=== PATIENT | male | born 1945 | race Caucasian/White ===

== ENCOUNTER 2017-04-16 19:35 | Inpatient (IN) ==
[2017-04-16] MEDS ORDERED: 0.9 % Sodium Chloride 1,000 ML IVC ONE ×2 (19:53→20:53)
--- NOTE | 2017-04-16 19:54 | Emergency Department Note ---
Disposition Clinical Impression: Neutropenic fever, Elevated lactic acid level, Hypomagnesemia Pneumonia Qualifiers: Pneumonia type: due to unspecified organism Laterality: right Lung location: unspecified part of lung Qualified Code(s): J18.9 - Pneumonia, unspecified organism Disposition: Admitted As Inpatient Condition: Fair Fever HPI - General Chief Complaint: ED Fever Stated Complaint: fever on chemo Time Seen by Provider: 04/16/17 19:46 Source: patient, family Limitations: no limitations Nursing Notes Reviewed: Yes Vital Signs Reviewed: Yes - History of Present Illness HPI Narrative: Patient presents today for evaluation of fever. Fever started at 3:00 this afternoon. Fever was 103 at home. Patient has leukemia and is on chemotherapy. Last chemotherapy was March 25. Scheduled chemotherapy is for April 25. The patient states that he had fever associated chills and shaking. The patient has not had any other symptoms point towards source of infection. Patient did have a CAT scan 3 weeks ago and was diagnosed with pneumonia. Patient was placed on amoxicillin by his oncologist in completed the course of treatment. Patient has not had URI symptoms, cough, chest pain, abdominal pain, change in bowel movements or burning with urination. - Related Data Home Medications Medication Instructions Recorded Confirmed Aspirin 81 mg PO DAILY 09/24/15 04/17/17 Lisinopril [Zestril] 5 mg PO DAILY 09/24/15 04/17/17 Oxazepam [Serax] 15 mg PO TID PRN 09/24/15 04/17/17 Triamterene/HCTZ 37.5/25mg 1 each PO DAILY 09/24/15 04/17/17 [Dyazide] Amiodarone HCl [Pacerone] 200 mg PO DAILY 10/25/16 04/17/17 Atenolol [Tenormin] 25 mg PO DAILY 01/27/17 04/17/17 Cholecalciferol (Vitamin D3) 2,000 unit PO DAILY 04/16/17 04/17/17 [Vitamin D] Potassium Chloride Elixir 20 meq PO DAILY 04/16/17 04/17/17 [Potassium Chloride] Fluticasone Propionate Nasal 50 mcg NS BID 04/17/17 04/17/17 [Flonase] Mineral Oil/Petrolatum,White 1 appl OP HS PRN 04/17/17 04/17/17 [Refresh P.m. Ointment] Polyvinyl Alcohol [Artificial 1 drop OP QID PRN 04/17/17 04/17/17 Tears] Previous Rx's Medication Instructions Recorded Loratadine [Claritin] 10 mg PO DAILY #30 tablet 03/16/17 Allergies Allergy/AdvReac Type Severity Reaction Status Date / Time No Known Allergies Allergy Verified 01/21/16 08:25 Review of Systems: CONSTITUTIONAL: Fever and chills No weight loss, chills, weakness or fatigue. HEENT: Eyes: No visual changes. Ears, Nose, Throat: No hearing loss, difficulty talking or unable to swallow. SKIN: No rash or itching. CARDIOVASCULAR: No chest pain, chest pressure or chest discomfort. No palpitations or edema. RESPIRATORY: No shortness of breath, cough or sputum. GASTROINTESTINAL: No anorexia, nausea, vomiting or diarrhea. No abdominal pain or blood. GENITOURINARY: No burning on urination or hematuria. NEUROLOGICAL: No headache, dizziness, syncope, paralysis, ataxia, numbness or tingling in the extremities. No change in bowel or bladder control. MUSCULOSKELETAL: No muscle pain, back pain, joint pain or stiffness. Fever PMH - Past Medical History Medical history: Reports: hypertension, other - Social History Smoking Status: Never smoker Alcohol use: Reports: none Drug use: Reports: none Physical Exam General appearance: NAD, conversant Eyes: anicteric sclerae, moist conjunctivae; PERRL HENT: Atraumatic; oropharynx clear with moist mucous membranes and no mucosal ulcerations Neck: Normal inspection; Trachea midline; FROM, supple Lungs: CTA, with normal respiratory effort and no intercostal retractions CV: RRR, no MRGs Abdomen: Soft, non-tender; no rebound or gaurding Extremities: No peripheral edema or extremity lymphadenopathy Skin: Normal temperature; no rash, ulcers or lesions Psych: Appropriate mood and affect Neuro: alert and oriented to person, place and time - General Limitations: no limitations General appearance: alert, in no apparent distress Course - Reevaluation(s) Reevaluation #1: Patient with evidence of pneumonia. Neutropenia. Elevated lactate. Hypo- magnesium. Cefepime given. Will admit for further management. - Consultations Consultation #1: Discussed with Dr. Moise. Patient accepted for admission. Requests addition of vancomycin and magnesium replacement. Vital Signs Temperature 99.4 F 04/16/17 19:36 Pulse Rate 119 04/16/17 19:36 Respiratory Rate 20 04/16/17 19:36 Blood Pressure 118/75 04/16/17 19:36 O2 Sat by Pulse Oximetry 96 04/16/17 19:36 Temperature 101 F H 04/17/17 18:39 Pulse Rate 67 04/17/17 18:39 Respiratory Rate 16 04/17/17 18:39 Blood Pressure 144/73 04/17/17 18:39 O2 Sat by Pulse Oximetry 98 04/17/17 18:39 Oxygen Delivery Oxygen Delivery Room Air Fever - Medical Records Medical records reviewed: Yes I reviewed the patient's medical records. - Lab Data Lab results reviewed: Yes I reviewed the patient's lab results. Result diagrams: 04/17/17 08:35 04/17/17 08:10 Lab Results 04/16/17 04/16/17 04/16/17 Range/Units 19:53 19:58 20:05 WBC 0.5 L* D (4.3-11.1) K/mcL RBC 3.02 L (4.19-5.50) M/mcL Hgb 11.4 L (12.9-16.9) g/dL Hct 32.7 L (37.5-50.1) % MCV 108.3 H (83.0-100.0) fL MCH 37.7 H (28.0-33.3) pg MCHC 34.9 (31.6-35.5) g/dL RDW 15.9 H (11.5-14.5) % Plt Count 130 L (140-400) K/mcL MPV 9.4 (9.4-12.4) fL Immature Gran % 0.0 (0-4) % Seg Neutrophils % 32.0 % Lymphocytes % 58.0 % Monocytes % 8.0 % Eosinophils % 0.0 % Basophils % 2.0 % Neutrophils # 0.2 L (1.6-8.9) K/mcL Lymphocytes # 0.3 L (0.6-4.6) K/mcL Monocytes # 0.0 (0.0-1.3) K/mcL Eosinophils # 0.0 (0.0-0.6) K/mcL Basophils # 0.0 (0.0-0.2) K/mcL Reactive Lymphocytes Present A (Not Present) Platelet Estimate Slight Decrease L (Normal) Immature Plt Fraction (1.1-6.1) % Polychromasia 2+ A (Not Present) Macrocytosis Present A (Not Present) PT (9.4-12.1) Seconds INR APTT (26.0-36.0) Seconds Sodium (136-145) mEq/L Potassium (3.5-5.1) mEq/L Chloride (98-107) mEq/L Carbon Dioxide (23-29) mEq/L BUN (8-23) mg/dL Creatinine (0.70-1.30) mg/dL Est GFR ( Amer) (> 60) Est GFR (Non-Af Amer) (> 60) BUN/Creatinine Ratio (6-26) Glucose (70-105) mg/dL Calculated Osmolality (280-300) Lactic Acid (0.5-2.2) mmol/L Calcium (8.6-10.3) mg/dL Phosphorus (2.7-4.5) mg/dL Magnesium (1.6-2.6) mg/dL Total Bilirubin (0.3-1.0) mg/dL Direct Bilirubin (0.0-0.2) mg/dL Indirect Bilirubin (0.0-1.2) mg/dL AST (13-39) Units/L ALT (7-52) Units/L Alkaline Phosphatase (34-104) Units/L Troponin I 0.05 H* (< 0.04) ng/mL Serum Total Protein (6.4-8.9) g/dL Albumin (3.5-5.7) g/dL Globulin (2.4-3.5) g/dL Albumin/Globulin Ratio (1.1-2.2) Urine Color Yellow (Yellow) Urine Clarity Clear (Clear) Urine pH 6.0 (5.0-8.0) pH Units Ur Specific [place] 1.016 (1.010-1.025) Urine Protein Negative (Neg-Trace) mg/dL Urine Glucose (UA) Normal (Normal) mg/dL Urine Ketones Negative (Negative) mg/dL Urine Blood Negative (Negative) Urine Nitrite Negative (Negative) Urine Bilirubin Negative (Negative) Urine Urobilinogen Normal (Normal) mg/dL Ur Leukocyte Esterase Negative (Negative) Ur Culture Indicated? NO (NO) Chlamy pneumoniae PCR (Not Detect) Adenovirus (PCR) (Not Detect) B. pertussis DNA (PCR) (Not Detect) B.parapertussis DNA PCR (Not Detect) Coronavirus OC43 (PCR) (Not Detect) Coronavirus HKU1 (PCR) (Not Detect) Coronavirus 229E (PCR) (Not Detect) Coronavirus NL63 (PCR) (Not Detect) Human Metapneumovir PCR (Not Detect) Influenza A (H1) PCR (Not Detect) Influ A (H1N1/09) PCR (Not Detect) Influenza A (H3) PCR (Not Detect) Influenza A Untype (PCR) (Not Detect) Influenza Type B (PCR) (Not Detect) M.pneumoniae DNA (PCR) (Not Detect) Parainfluenza 1 (PCR) (Not Detect) Parainfluenza 2 (PCR) (Not Detect) Parainfluenza 3 (PCR) (Not Detect) Parainfluenza 4 (PCR) (Not Detect) RSV (PCR) (Not Detect) Entero/Rhino (PCR) (Not Detect) 04/16/17 04/16/17 04/16/17 Range/Units 20:05 20:05 20:05 WBC (4.3-11.1) K/mcL RBC (4.19-5.50) M/mcL Hgb (12.9-16.9) g/dL Hct (37.5-50.1) % MCV (83.0-100.0) fL MCH (28.0-33.3) pg MCHC (31.6-35.5) g/dL RDW (11.5-14.5) % Plt Count (140-400) K/mcL MPV (9.4-12.4) fL Immature Gran % (0-4) % Seg Neutrophils % % Lymphocytes % % Monocytes % % Eosinophils % % Basophils % % Neutrophils # (1.6-8.9) K/mcL Lymphocytes # (0.6-4.6) K/mcL Monocytes # (0.0-1.3) K/mcL Eosinophils # (0.0-0.6) K/mcL Basophils # (0.0-0.2) K/mcL Reactive Lymphocytes (Not Present) Platelet Estimate (Normal) Immature Plt Fraction (1.1-6.1) % Polychromasia (Not Present) Macrocytosis (Not Present) PT 12.0 (9.4-12.1) Seconds INR 1.1 APTT 29.0 (26.0-36.0) Seconds Sodium 131 L (136-145) mEq/L Potassium 3.8 (3.5-5.1) mEq/L Chloride 97 L (98-107) mEq/L Carbon Dioxide 23 (23-29) mEq/L BUN 16 (8-23) mg/dL Creatinine 0.92 (0.70-1.30) mg/dL Est GFR ( Amer) > 60 (> 60) Est GFR (Non-Af Amer) > 60 (> 60) BUN/Creatinine Ratio 17 (6-26) Glucose 219 H (70-105) mg/dL Calculated Osmolality 280 (280-300) Lactic Acid 3.3 H (0.5-2.2) mmol/L Calcium 9.0 (8.6-10.3) mg/dL Phosphorus 1.6 L (2.7-4.5) mg/dL Magnesium 1.2 L (1.6-2.6) mg/dL Total Bilirubin 0.5 (0.3-1.0) mg/dL Direct Bilirubin 0.1 (0.0-0.2) mg/dL Indirect Bilirubin 0.4 (0.0-1.2) mg/dL AST 24 (13-39) Units/L ALT 25 (7-52) Units/L Alkaline Phosphatase 87 (34-104) Units/L Troponin I (< 0.04) ng/mL Serum Total Protein 7.1 (6.4-8.9) g/dL Albumin 3.9 (3.5-5.7) g/dL Globulin 3.2 (2.4-3.5) g/dL Albumin/Globulin Ratio 1.2 (1.1-2.2) Urine Color (Yellow) Urine Clarity (Clear) Urine pH (5.0-8.0) pH Units Ur Specific [place] (1.010-1.025) Urine Protein (Neg-Trace) mg/dL Urine Glucose (UA) (Normal) mg/dL Urine Ketones (Negative) mg/dL Urine Blood (Negative) Urine Nitrite (Negative) Urine Bilirubin (Negative) Urine Urobilinogen (Normal) mg/dL Ur Leukocyte Esterase (Negative) Ur Culture Indicated? (NO) Chlamy pneumoniae PCR (Not Detect) Adenovirus (PCR) (Not Detect) B. pertussis DNA (PCR) (Not Detect) B.parapertussis DNA PCR (Not Detect) Coronavirus OC43 (PCR) (Not Detect) Coronavirus HKU1 (PCR) (Not Detect) Coronavirus 229E (PCR) (Not Detect) Coronavirus NL63 (PCR) (Not Detect) Human Metapneumovir PCR (Not Detect) Influenza A (H1) PCR (Not Detect) Influ A (H1N1/09) PCR (Not Detect) Influenza A (H3) PCR (Not Detect) Influenza A Untype (PCR) (Not Detect) Influenza Type B (PCR) (Not Detect) M.pneumoniae DNA (PCR) (Not Detect) Parainfluenza 1 (PCR) (Not Detect) Parainfluenza 2 (PCR) (Not Detect) Parainfluenza 3 (PCR) (Not Detect) Parainfluenza 4 (PCR) (Not Detect) RSV (PCR) (Not Detect) Entero/Rhino (PCR) (Not Detect) 04/17/17 04/17/17 04/17/17 Range/Units 00:39 01:15 08:10 WBC (4.3-11.1) K/mcL RBC (4.19-5.50) M/mcL Hgb (12.9-16.9) g/dL Hct (37.5-50.1) % MCV (83.0-100.0) fL MCH (28.0-33.3) pg MCHC (31.6-35.5) g/dL RDW (11.5-14.5) % Plt Count (140-400) K/mcL MPV (9.4-12.4) fL Immature Gran % (0-4) % Seg Neutrophils % % Lymphocytes % % Monocytes % % Eosinophils % % Basophils % % Neutrophils # (1.6-8.9) K/mcL Lymphocytes # (0.6-4.6) K/mcL Monocytes # (0.0-1.3) K/mcL Eosinophils # (0.0-0.6) K/mcL Basophils # (0.0-0.2) K/mcL Reactive Lymphocytes (Not Present) Platelet Estimate (Normal) Immature Plt Fraction (1.1-6.1) % Polychromasia (Not Present) Macrocytosis (Not Present) PT (9.4-12.1) Seconds INR APTT (26.0-36.0) Seconds Sodium 134 L (136-145) mEq/L Potassium 3.2 L (3.5-5.1) mEq/L Chloride 105 (98-107) mEq/L Carbon Dioxide 21 L (23-29) mEq/L BUN 14 (8-23) mg/dL Creatinine 0.73 (0.70-1.30) mg/dL Est GFR ( Amer) > 60 (> 60) Est GFR (Non-Af Amer) > 60 (> 60) BUN/Creatinine Ratio 19 (6-26) Glucose 129 H (70-105) mg/dL Calculated Osmolality 280 (280-300) Lactic Acid 4.8 H* (0.5-2.2) mmol/L Calcium 8.1 L (8.6-10.3) mg/dL Phosphorus (2.7-4.5) mg/dL Magnesium 1.9 (1.6-2.6) mg/dL Total Bilirubin (0.3-1.0) mg/dL Direct Bilirubin (0.0-0.2) mg/dL Indirect Bilirubin (0.0-1.2) mg/dL AST (13-39) Units/L ALT (7-52) Units/L Alkaline Phosphatase (34-104) Units/L Troponin I (< 0.04) ng/mL Serum Total Protein (6.4-8.9) g/dL Albumin (3.5-5.7) g/dL Globulin (2.4-3.5) g/dL Albumin/Globulin Ratio (1.1-2.2) Urine Color (Yellow) Urine Clarity (Clear) Urine pH (5.0-8.0) pH Units Ur Specific [place] (1.010-1.025) Urine Protein (Neg-Trace) mg/dL Urine Glucose (UA) (Normal) mg/dL Urine Ketones (Negative) mg/dL Urine Blood (Negative) Urine Nitrite (Negative) Urine Bilirubin (Negative) Urine Urobilinogen (Normal) mg/dL Ur Leukocyte Esterase (Negative) Ur Culture Indicated? (NO) Chlamy pneumoniae PCR Not Detected (Not Detect) Adenovirus (PCR) Not Detected (Not Detect) B. pertussis DNA (PCR) Not Detected (Not Detect) B.parapertussis DNA PCR Not Detected (Not Detect) Coronavirus OC43 (PCR) Not Detected (Not Detect) Coronavirus HKU1 (PCR) Not Detected (Not Detect) Coronavirus 229E (PCR) Not Detected (Not Detect) Coronavirus NL63 (PCR) Not Detected (Not Detect) Human Metapneumovir PCR Not Detected (Not Detect) Influenza A (H1) PCR Not Detected (Not Detect) Influ A (H1N1/09) PCR Not Detected (Not Detect) Influenza A (H3) PCR Not Detected (Not Detect) Influenza A Untype (PCR) Not Detected (Not Detect) Influenza Type B (PCR) Not Detected (Not Detect) M.pneumoniae DNA (PCR) Not Detected (Not Detect) Parainfluenza 1 (PCR) Not Detected (Not Detect) Parainfluenza 2 (PCR) Not Detected (Not Detect) Parainfluenza 3 (PCR) Not Detected (Not Detect) Parainfluenza 4 (PCR) Not Detected (Not Detect) RSV (PCR) Not Detected (Not Detect) Entero/Rhino (PCR) Not Detected (Not Detect) 04/17/17 04/17/17 04/17/17 Range/Units 08:10 08:10 08:35 WBC 0.8 L* D (4.3-11.1) K/mcL RBC 2.69 L (4.19-5.50) M/mcL Hgb 10.2 L (12.9-16.9) g/dL Hct 29.1 L (37.5-50.1) % MCV 108.2 H (83.0-100.0) fL MCH 37.9 H (28.0-33.3) pg MCHC 35.1 (31.6-35.5) g/dL RDW 16.0 H (11.5-14.5) % Plt Count 143 (140-400) K/mcL MPV 9.8 (9.4-12.4) fL Immature Gran % 0.0 (0-4) % Seg Neutrophils % 21.4 % Lymphocytes % 75.0 % Monocytes % 3.6 % Eosinophils % 0.0 % Basophils % 0.0 % Neutrophils # 0.2 L (1.6-8.9) K/mcL Lymphocytes # 0.6 (0.6-4.6) K/mcL Monocytes # 0.0 (0.0-1.3) K/mcL Eosinophils # 0.0 (0.0-0.6) K/mcL Basophils # 0.0 (0.0-0.2) K/mcL Reactive Lymphocytes (Not Present) Platelet Estimate Normal (Normal) Immature Plt Fraction 3.0 (1.1-6.1) % Polychromasia (Not Present) Macrocytosis (Not Present) PT (9.4-12.1) Seconds INR APTT (26.0-36.0) Seconds Sodium (136-145) mEq/L Potassium (3.5-5.1) mEq/L Chloride (98-107) mEq/L Carbon Dioxide (23-29) mEq/L BUN (8-23) mg/dL Creatinine (0.70-1.30) mg/dL Est GFR ( Amer) (> 60) Est GFR (Non-Af Amer) (> 60) BUN/Creatinine Ratio (6-26) Glucose (70-105) mg/dL Calculated Osmolality (280-300) Lactic Acid 2.6 H (0.5-2.2) mmol/L Calcium (8.6-10.3) mg/dL Phosphorus (2.7-4.5) mg/dL Magnesium (1.6-2.6) mg/dL Total Bilirubin (0.3-1.0) mg/dL Direct Bilirubin (0.0-0.2) mg/dL Indirect Bilirubin (0.0-1.2) mg/dL AST (13-39) Units/L ALT (7-52) Units/L Alkaline Phosphatase (34-104) Units/L Troponin I 0.20 H* (< 0.04) ng/mL Serum Total Protein (6.4-8.9) g/dL Albumin (3.5-5.7) g/dL Globulin (2.4-3.5) g/dL Albumin/Globulin Ratio (1.1-2.2) Urine Color (Yellow) Urine Clarity (Clear) Urine pH (5.0-8.0) pH Units Ur Specific [place] (1.010-1.025) Urine Protein (Neg-Trace) mg/dL Urine Glucose (UA) (Normal) mg/dL Urine Ketones (Negative) mg/dL Urine Blood (Negative) Urine Nitrite (Negative) Urine Bilirubin (Negative) Urine Urobilinogen (Normal) mg/dL Ur Leukocyte Esterase (Negative) Ur Culture Indicated? (NO) Chlamy pneumoniae PCR (Not Detect) Adenovirus (PCR) (Not Detect) B. pertussis DNA (PCR) (Not Detect) B.parapertussis DNA PCR (Not Detect) Coronavirus OC43 (PCR) (Not Detect) Coronavirus HKU1 (PCR) (Not Detect) Coronavirus 229E (PCR) (Not Detect) Coronavirus NL63 (PCR) (Not Detect) Human Metapneumovir PCR (Not Detect) Influenza A (H1) PCR (Not Detect) Influ A (H1N1/09) PCR (Not Detect) Influenza A (H3) PCR (Not Detect) Influenza A Untype (PCR) (Not Detect) Influenza Type B (PCR) (Not Detect) M.pneumoniae DNA (PCR) (Not Detect) Parainfluenza 1 (PCR) (Not Detect) Parainfluenza 2 (PCR) (Not Detect) Parainfluenza 3 (PCR) (Not Detect) Parainfluenza 4 (PCR) (Not Detect) RSV (PCR) (Not Detect) Entero/Rhino (PCR) (Not Detect) - Radiology Data Radiology results reviewed: Yes I reviewed the patient's radiology results. - EKG Data EKG attestation: Yes I reviewed and interpreted this EKG. EKG results narrative: EKG shows ventricularly paced. Ventricular rate of 105. QRS 154. QTC 438. Inferior T-wave changes. Does not meet [place] criteria. No previous EKG for comparison. Attestation Statement - Attestation Attestation: I examined this patient and my medical decision-making was reviewed with the Resident Physician. I agree with the documented findings, disposition and treatment plan as described except to the extent set forth below. Findings consistent with pneumonia while on chemotherapy. Will start antibiotics, foster cultures, disposition is admission.
[2017-04-16 20:03] LABS: Bilirubin,Urine Negative (Negative); Blood,Urine Negative (Negative); Clarity,Urine Clear (Clear); Color,Urine Yellow (Yellow); Glucose,Urine (UA) Normal (Normal); Ketones,Urine Negative (Negative); Leukocyte Esterase,Urine Negative (Negative); Nitrite,Urine Negative (Negative); Protein,Urine Negative (Neg-Trace); Specific Gravity,Urine 1.016 (1.010-1.025); Urobilinogen,Urine Normal (Normal)
[2017-04-16 20:16] LABS: Hematocrit 32.7 % (37.5-50.1); Mean Platelet Volume 9.4 fL (9.4-12.4)
[2017-04-16 20:18] LABS: Hemoglobin 11.4 g/dL (12.9-16.9); Lymphocytes # 0.3 K/mcL (0.6-4.6); Mean Corpuscular HGB Conc 34.9 g/dL (31.6-35.5); Mean Corpuscular Hemoglobin 37.7 pg (28.0-33.3); Mean Corpuscular Volume 108.3 fL (83.0-100.0); Neutrophils # 0.2 K/mcL (1.6-8.9); Platelet Count 130 K/mcL (140-400); Red Blood Count 3.02 M/mcL (4.19-5.50); Red Cell Distribution Width 15.9 % (11.5-14.5)
[2017-04-16 20:21] LABS: INR 1.1
[2017-04-16 20:39] LABS: Alanine Aminotransferase 25 Units/L (7-52); Albumin 3.9 g/dL (3.5-5.7); Albumin/Globulin Ratio 1.2 (1.1-2.2); Alkaline Phosphatase 87 Units/L (34-104); Aspartate Amino Transferase 24 Units/L (13-39); BUN/Creatinine Ratio 17 (6-26); Bilirubin,Direct 0.1 mg/dL (0.0-0.2); Bilirubin,Indirect 0.4 mg/dL (0.0-1.2); Bilirubin,Total 0.5 mg/dL (0.3-1.0); Blood Urea Nitrogen 16 mg/dL (8-23); Carbon Dioxide 23 mEq/L (23-29); Chloride 97 mEq/L (98-107); Globulin 3.2 g/dL (2.4-3.5); Glucose 219 mg/dL (70-105); Magnesium 1.2 mg/dL (1.6-2.6); Osmolality,Calculated 280 (280-300); Phosphorous 1.6 mg/dL (2.7-4.5); Potassium 3.8 mEq/L (3.5-5.1); Sodium 131 mEq/L (136-145); Total Protein 7.1 g/dL (6.4-8.9); eGFR For African Americans > 60 (> 60); eGFR For Non-African Americans > 60 (> 60)
[2017-04-16 20:48] LABS: Platelet Estimate Slight Decrease (Normal); Polychromasia 2+ (Not Present); Reactive Lymphocytes Present (Not Present)
[2017-04-16 20:49] LABS: Macrocytosis Present (Not Present)
[2017-04-16] MEDS ORDERED: Aspirin 81 MG TAB.CHEW PO STA (20:51)
[2017-04-16] MEDS ORDERED: Cefepime HCl 2,000 MG in D5% in Water (Mini-Bag+) 100 ML IVPB ONE (20:52)
[2017-04-16] MEDS ORDERED: Vancomycin 1,000 MG in D5% in Water 250 ML IVPB STA (21:45)
[2017-04-16] MEDS ORDERED: Cefepime HCl 2,000 MG in Water for inj. (sterile) 20 ML 20 ML IVP ONE (22:00)
[2017-04-16] MEDS ORDERED: Naloxone 0.4 MG/ML INJ IVP PRN (23:02)
--- NOTE | 2017-04-16 23:13 | Internal Med History&Physical ---
Date of Encounter: 04/16/17 Time of Encounter: 23:10 Assessment and Plan (1) Neutropenic fever Current visit: Yes Status: Acute supportive coverage with cefepime for gram negative Also on vanco IV, check level IVF (2) Pneumonia Current visit: Yes Status: Acute cefepime, vanco pneumoccocal ag in the ED wnl IVF trend lactate Qualifiers: Pneumonia type: due to unspecified organism Laterality: right Lung location: unspecified part of lung Qualified Code(s): J18.9 - Pneumonia, unspecified organism (3) AML (acute myeloid leukemia) Current visit: Yes Status: Acute on palliative dacogen consult onc Qualifiers: Leukemia Active/Remission status: without remission Qualified Code(s): C92.00 - Acute myeloblastic leukemia, not having achieved remission (4) Atrial fibrillation Current visit: Yes Status: Acute V-paced on amiodarone Qualifiers: Atrial fibrillation type: permanent Qualified Code(s): I48.2 - Chronic atrial fibrillation Internal Medicine - H&P: HPI Chief complaint: fever chills History of present illness: Mr. Lee is a 72 year old male with AML/CMML who presents with FN. Found possible PNA as source of infection. He recently started palliative dacogen in mar 2017. He presents due to fever and chills, temp 100.3 at 6 pm. He reports a hx of pneumoccocal PNA in the compa -Xmas period on Mar. Due to severe immunocompromised status was told to come to ED for empiric antibiotics at any signs of fever/chills/infection EKG reviewed personally, V-paced rate 105 XR/XR chest 1V portable IMPRESSION: Patchy right perihilar airspace opacities, concerning for pneumonia. Past Med Surg Social Fam HX - Past Medical History Medical history: hypertension, other - Past Surgical History Surgical History: non-contributory - Social History Smoking Status: Never smoker Alcohol use: none Drug use: none - Additional Family History Additional family history: HTN Internal Medicine - H&P: Meds Aspirin 81 mg PO DAILY 09/24/15 [History] Flunisolide 2 spray NS BID PRN 09/24/15 [History] Lisinopril [Zestril] 5 mg PO DAILY 09/24/15 [History] Oxazepam [Serax] 15 mg PO TID 09/24/15 [History] Potassium Chloride [K-Tab ER] 20 meq PO DAILY 09/24/15 [History] Triamterene/HCTZ 37.5/25mg [Dyazide] 1 each PO DAILY 09/24/15 [History] Ondansetron [Zofran] 4 mg PO Q8HR PRN #90 tablet 03/01/16 [Rx] Prochlorperazine Maleate [Compazine] 10 mg PO Q8HR PRN #90 tablet 03/01/16 [Rx] Amiodarone HCl [Pacerone] 200 mg PO DAILY 10/25/16 [History] Atenolol [Tenormin] 25 mg PO DAILY 01/27/17 [History] Ergocalciferol (VITAMIN D2) [Vitamin D2] 2,000 unit PO DAILY 02/14/17 [History] Amoxicillin/Clavulanate [Augmentin] 875 mg PO BIDWM #20 tablet 03/16/17 [Rx] Loratadine [Claritin] 10 mg PO DAILY #30 tablet 03/16/17 [Rx] levoFLOXacin [Levaquin] 500 mg PO DAILY #7 tablet 03/16/17 [Rx] 3 Allergy/AdvReac Type Severity Reaction Status Date / Time No Known Allergies Allergy Verified 01/21/16 08:25 All Systems PM: A 10-system review of systems was performed and is negative for pertinent findings except as documented above in the HPI. Review of systems: ROS 14 point review of systems reviewed as best as possible given presentation. Pertinent positive or negative as per HPI or otherwise reviewed as negative - Constitutional Vitals: Temp Pulse Resp BP Pulse Ox 99.4 F 103 18 146/94 96 04/16/17 19:36 04/16/17 20:11 04/16/17 22:56 04/16/17 22:56 04/16/17 20:11 Internal Med - H&P Results - Labs CBC & Chem 7: 04/16/17 20:05 04/16/17 20:05
[2017-04-16] MEDS ORDERED: 0.9 % Sodium Chloride 1,000 ML IVC SCH (23:15)
[2017-04-16] MEDS ORDERED: Vancomycin 0 MG in D5% in Water 250 ML IVPB SCH (23:45)
[2017-04-17] MEDS: Acetaminophen 325 MG TABLET PO PRN ×2 (01:11→19:48)
[2017-04-17] MEDS ORDERED: 0.9 % Sodium Chloride 1,000 ML IVC ONE ×2 (01:32→01:35)
[2017-04-17] MEDS ORDERED: Magnesium Sulfate 4 GM in D5% in Water 100 ML IVPB ONE (01:33)
[2017-04-17] MEDS ORDERED: Levofloxacin 500 MG/100 ML 500 MG/100 ML BAG IVPB ONE (01:34)
[2017-04-17 03:47] LABS: Adenovirus Not Detected (Not Detect); Bordetella Pertussis Not Detected (Not Detect); Chlamydophila pneumoniae Not Detected (Not Detect); Coronavirus 229E Not Detected (Not Detect); Coronavirus HKU1 Not Detected (Not Detect); Coronavirus NL63 Not Detected (Not Detect); Coronavirus OC43 Not Detected (Not Detect); Human Metapneumovirus Not Detected (Not Detect); Human Rhinovirus/Enterovirus Not Detected (Not Detect); Influenza A Subtype 2009 H1 Not Detected (Not Detect); Influenza A Untypeable Not Detected (Not Detect); Influenza B Not Detected (Not Detect); Mycoplasma pneumoniae Not Detected (Not Detect); Parainfluenza Virus 1 Not Detected (Not Detect); Parainfluenza Virus 2 Not Detected (Not Detect); Parainfluenza Virus 3 Not Detected (Not Detect); Parainfluenza Virus 4 Not Detected (Not Detect); Respiratory Syncytial Virus Not Detected (Not Detect)
[2017-04-17] MEDS: *HR* Enoxaparin 30 MG/0.3 ML SYRINGE SQ SCH (05:57)
[2017-04-17] MEDS ORDERED: Cefepime HCl 2,000 MG in D5% in Water (Mini-Bag+) 100 ML IVPB SCH (08:00)
[2017-04-17] MEDS: Aspirin 81 MG TAB.CHEW PO SCH (08:19)
[2017-04-17] MEDS: Loratadine 10 MG TABLET PO SCH (08:21)
[2017-04-17] MEDS: *HR* Amiodarone 200 MG TABLET PO SCH (08:22)
[2017-04-17] MEDS: Cefepime HCl 2,000 MG in Water for inj. (sterile) 20 ML 20 ML IVP SCH ×2 (08:23→21:02)
[2017-04-17 08:37] LABS: BUN/Creatinine Ratio 19 (6-26); Blood Urea Nitrogen 14 mg/dL (8-23); Calcium 8.1 mg/dL (8.6-10.3); Carbon Dioxide 21 mEq/L (23-29); Chloride 105 mEq/L (98-107); Glucose 129 mg/dL (70-105); Magnesium 1.9 mg/dL (1.6-2.6); Osmolality,Calculated 280 (280-300); Potassium 3.2 mEq/L (3.5-5.1); Sodium 134 mEq/L (136-145); eGFR For African Americans > 60 (> 60); eGFR For Non-African Americans > 60 (> 60)
[2017-04-17 08:44] LABS: Hematocrit 29.1 % (37.5-50.1); Hemoglobin 10.2 g/dL (12.9-16.9); Lymphocytes # 0.6 K/mcL (0.6-4.6); Mean Corpuscular HGB Conc 35.1 g/dL (31.6-35.5); Mean Corpuscular Hemoglobin 37.9 pg (28.0-33.3); Mean Corpuscular Volume 108.2 fL (83.0-100.0); Mean Platelet Volume 9.8 fL (9.4-12.4); Monocytes % 3.6 %; Neutrophils # 0.2 K/mcL (1.6-8.9); Platelet Count 143 K/mcL (140-400); Red Blood Count 2.69 M/mcL (4.19-5.50); Segmented Neutrophils % 21.4 %
[2017-04-17 08:54] LABS: Platelet Estimate Normal (Normal)
[2017-04-17] MEDS: Vancomycin 1,250 MG in D5% in Water 250 ML IVPB SCH ×2 (09:37→21:02)
[2017-04-17] MEDS: 0.9 % Sodium Chloride w KCl 20 MEQ/1,000 ML MLS IVC SCH ×2 (09:43→20:04)
--- NOTE | 2017-04-17 13:09 | Cardiology Consult Note ---
<Scarlett Baca - Last Filed: 04/17/17 13:07> Date of Encounter: 04/17/17 Time of Encounter: 12:30 Assessment and Plan (1) Pneumonia Current Visit: Yes Status: Acute Per cardiology: -Admitted with fever, chills, shortness of breath. -CHest x-ray with pneumonia. -Management per primary service. Qualifiers: Pneumonia type: due to unspecified organism Laterality: right Lung location: unspecified part of lung Qualified Code(s): J18.9 - Pneumonia, unspecified organism (2) AML (acute myeloid leukemia) Current Visit: Yes Status: Acute Per cardiology: -Known AML. -Follows with oncology. Qualifiers: Leukemia Active/Remission status: without remission Qualified Code(s): C92.00 - Acute myeloblastic leukemia, not having achieved remission (3) Elevated troponin Current Visit: Yes Status: Acute Per cardiology: -Troponins 0.05, 0.2 in the setting of pneumonia. -Denies chest pain. -ECG abnormal, no previous ECGs at [facility]. -ON asa, beta melissa. Not on heparin/lovenox due to pancytopenia. -Of note, patient is pancytopenic. WBC 0.8, Hemoglobin 10.2, PLateletes today WNL, however 04/07/17 platelets were 19. -Trend troponins. -DO not suspect NSTEMI at this time, suspect demand ischemia. -Will wait for oncology evaluation regarding anticoagulation. -Will check TTE. -Will obtain previous cardiac records from [facility]> (4) Atrial fibrillation Current Visit: Yes Status: Acute Per cardiology: -Patient reports a,fib, states he had to stop coumadin due to his labs. Patient is aware of increased risk of CVA. -On beta melissa. -Rate controlled. -Will continue to monitor. Qualifiers: Atrial fibrillation type: permanent Qualified Code(s): I48.2 - Chronic atrial fibrillation Discussion w patient/family: The assessment and plan as outlined above was discussed with the patient who expressed understanding and agreement. All questions were answered. Thank you for involving us in the care of your patient. Please call with any questions. Discussed and reviewed with . History of Present Illness Consult date: 04/17/17 Requesting physician: Karen Quinn Consult reason: elevated troponin Chief complaint: shortness of breath, fever, chills History of present illness: Mr. Lee is a 72 year old male with a relevant past medical history of CLL, AML , atrial fibrillation, HTN, pacemaker. Patient presented to [facility] with complaints of fever, chills, and increased shortness of breath. Patient denies chest pain. Patient states he follows with cardiology at the [facility] in [place]. Past Med Surg Social Fam HX - Past Medical History Attestation: Yes The following information was validated with the patient. Source: patient, old records reviewed Medical history: atrial fibrillation, cancer, hypertension Psychiatric history: no psych history - Past Surgical History Surgical History: pacemaker/AICD - Social History Smoking Status: Former smoker Smokeless Tobacco Status: No Alcohol use: none Drug use: none - Family History Mother Hx Family Cardiac Disorders: Yes (MYOCARDIAL INFARCTION.) Medications and Allergies Aspirin 81 mg PO DAILY 09/24/15 [History] Lisinopril [Zestril] 5 mg PO DAILY 09/24/15 [History] Oxazepam [Serax] 15 mg PO TID PRN 09/24/15 [History] Triamterene/HCTZ 37.5/25mg [Dyazide] 1 each PO DAILY 09/24/15 [History] Amiodarone HCl [Pacerone] 200 mg PO DAILY 10/25/16 [History] Atenolol [Tenormin] 25 mg PO DAILY 01/27/17 [History] Loratadine [Claritin] 10 mg PO DAILY #30 tablet 03/16/17 [Rx] Cholecalciferol (Vitamin D3) [Vitamin D] 2,000 unit PO DAILY 04/16/17 [History] Potassium Chloride Elixir [Potassium Chloride] 20 meq PO DAILY 04/16/17 [History ] Fluticasone Propionate Nasal [Flonase] 50 mcg NS BID 04/17/17 [History] Mineral Oil/Petrolatum,White [Refresh P.m. Ointment] 1 appl OP HS PRN 04/17/17 [ History] Polyvinyl Alcohol [Artificial Tears] 1 drop OP QID PRN 04/17/17 [History] 3 Allergy/AdvReac Type Severity Reaction Status Date / Time No Known Allergies Allergy Verified 01/21/16 08:25 All Systems Review: A 10-system review of systems was performed and is negative for pertinent findings except as documented above in the HPI. - Constitutional Constitutional: chills, fever(s) - Cardiovascular Cardiovascular: as per HPI, dyspnea on exertion Physical Examination Vital Signs, Last 4 Hours Temp Pulse Resp BP Pulse Ox 04/17/17 10:54 97.9 F 79 18 114/65 94 General: Conversant, No Apparent Distress HEENT: Atraumatic, Normocephaly, Mucus Membranes Moist Neck: No JVD, Normal carotid pulses Cardiac: Reg Rate and Rhythm, Normal S1 and S2, No Murmur Lungs: Normal Breath Sounds, No Wheeze, Rales, Rhonchi Neuro: Alert and responsive, No focal deficits noted Abdomen: Soft, Non-Tender Skin: No rashes noted on visualized skin Musculoskeletal: No Chest Wall Tenderness Extremities: No Clubbing, No Cyanosis, No Edema, Normal Pulses Results 04/17/17 08:35 04/17/17 08:10 Lab Results Impressions Chest X-Ray 04/16/17 19:53 IMPRESSION: Patchy right perihilar airspace opacities, concerning for pneumonia. D/ / Ashutosh Wheeler MD / Ashutosh Wheeler MD Interpreting Provider: Ashutosh Wheeler MD Active Medications Acetaminophen (Tylenol) 325 mg PO Q4HR PRN PRN Reason: Pain Stop: 10/17/17 00:52 Last Admin: 04/17/17 01:11 Dose: 325 mg Amiodarone HCl (Cordarone) 200 mg PO DAILY [facility] Stop: 10/17/17 09:01 Last Admin: 04/17/17 08:22 Dose: 200 mg Aspirin (Aspirin) 81 mg PO DAILY [facility] Stop: 10/17/17 09:01 Last Admin: 04/17/17 08:19 Dose: Not Given Atenolol (Tenormin) 25 mg PO DAILY [facility] Stop: 10/17/17 09:01 Last Admin: 04/17/17 08:23 Dose: 25 mg Enoxaparin Sodium (Lovenox) 30 mg SQ 0600 [facility] PRN Reason: Protocol Stop: 10/17/17 06:01 Last Admin: 04/17/17 05:57 Dose: Not Given Cefepime HCl 2,000 mg/ Sterile (Water) 20 mls @ 300 mls/hr IVP Q12H [facility] Stop: 10/17/17 09:01 Last Admin: 04/17/17 08:23 Dose: 300 mls/hr Vancomycin HCl 1,250 mg/ (Dextrose) 250 mls @ 166.667 mls/hr IVPB Q12H [facility] Stop: 10/17/17 10:01 Last Admin: 04/17/17 09:37 Dose: 166.667 mls/hr Potassium Chloride/Sodium Chloride (Kcl 20 Meq In 0.9% Sodium Chloride) 20 meq in 1,000 mls @ 100 mls/hr IVC .Q10H [facility] Stop: 10/17/17 09:31 Last Admin: 04/17/17 09:43 Dose: 100 mls/hr Loratadine (Claritin) 10 mg PO DAILY [facility] PRN Reason: Protocol Stop: 10/17/17 09:01 Last Admin: 04/17/17 08:21 Dose: 10 mg Naloxone HCl (Narcan) 0.4 mg IVP Q2MIN PRN PRN Reason: Opioid Reversal Stop: 10/16/17 23:03 Oxazepam (Serax) 15 mg PO TID PRN PRN Reason: Anxiety Stop: 10/17/17 09:01 Potassium Chloride (Potassium Chloride) 20 meq PO DAILY [facility] Stop: 10/17/17 09:31 Last Admin: 04/17/17 09:44 Dose: 20 meq Laboratory Tests 04/07/17 04/14/17 04/16/17 10:28 11:02 19:53 WBC Hgb Plt Count 19 L* 89 L Creatinine Troponin I 0.05 H* 04/16/17 04/17/17 04/17/17 20:05 08:10 08:10 WBC Hgb Plt Count 130 L Creatinine 0.73 Troponin I 0.20 H* 04/17/17 08:35 WBC 0.8 L* D Hgb 10.2 L Plt Count 143 Creatinine Troponin I - Imaging and Cardiology Chest Xray: report reviewed Echo: pending - EKG Interpretation EKG results cardiology: personally reviewed (ECG with paced rhythm.), other ( Telemetry reviewed with average HR previous 12 hours noted to be 90, paced rhythm. PACs noted.) Consult Discharge Plan - Plan Referrals: Shannan Shah MD [Primary Care Provider] - <Génesis Garibay - Last Filed: 04/19/17 13:14> Date of Encounter: 04/19/17 - Attending Attestation I have personally performed a face to face evaluation on this patient. I have reviewed and agree with the care plan. History and Exam by me shows: 72 year old male withl history of of CLL, AML, atrial fibrillation, HTN, pacemaker. Patient complains of fever, chills, and increased shortness of breath. Patient denies chest pain. Patient states he follows with cardiology at the [facility] in [place]. Mild elevation in troponins with peak of .2 however continues to be asymtomatic. Patient was off coumadin for stroke risk reduction in the setting of Afib due to risk of bleed. Will trend troponins but patient may not be a candidate for LHC/PCI if unable to tolerate dual antiplatelet therapy. Risks likely outweigh the benefits of a LHC with this level of troponin. Assessment and Plan Discussion w patient/family: The assessment and plan as outlined above was discussed with the patient and/or family members who expressed understanding and agreement. All questions were answered. Thank you for involving us in the care of your patient. Please call with any questions. History of Present Illness History of present illness: Mr. Lee is a 72 year old male All Systems Review: A 10-system review of systems was performed and is negative for pertinent findings except as documented above in the HPI. Physical Examination Vital Signs, Last 4 Hours Temp Pulse Resp BP Pulse Ox 04/19/17 11:18 98.6 F 79 16 96/62 92 04/19/17 10:09 98.7 F Results 04/19/17 00:38 04/19/17 00:38 Lab Results 04/19/17 04/19/17 00:38 00:38 WBC 2.4 L D Hgb 8.9 L Hct 26.1 L Plt Count 116 L Sodium 137 Potassium 3.4 L Chloride 108 H Carbon Dioxide 23 BUN 18 Creatinine 0.76 Glucose 112 H Calcium 8.5 L Magnesium 1.4 L
--- NOTE | 2017-04-17 14:49 | Internal Med Progress Note ---
Date of Encounter: 04/17/17 Time of Encounter: 10:10 - Assessment and plan (1) Neutropenic fever Current Visit: Yes Status: Acute Assessment and plan: No new episodes of fever. Continue to treat with empiric antibiotics. Follow culture results. Total WBC count slightly improved today at 0.8. Remains neutropenic. Oncology consulted. Awaiting input. (2) Pneumonia Current Visit: Yes Status: Acute Assessment and plan: Patient recently treated as outpatient with levofloxacin and Augmentin. Currently on empiric antibiotics with cefepime and vancomycin. No other source of infection identified. Chest x-ray findings could be new superimposed pneumonia or could be related to recent episode of pneumonia. However given patient's neutropenia, we will treat it is a new episode. Follow culture results. Check respiratory panel. Qualifiers: Pneumonia type: due to unspecified organism Laterality: right Lung location: unspecified part of lung Qualified Code(s): J18.9 - Pneumonia, unspecified organism (3) AML (acute myeloid leukemia) Current Visit: Yes Status: Acute Assessment and plan: Patient receiving Dacogen as outpatient. Oncology consultation. 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 Cardiology consultation. Will follow recommendations. Patient denies any chest pain at this time. - Subjective Interval history: Patient is awake and alert. Lying in bed. Appears comfortable. No new complaints at this time. Has not had any fever this morning. No chest pain. No palpitations. Does describe some shortness of breath. - Constitutional Vitals: Temp Pulse Resp BP Pulse Ox 97.9 F 79 18 114/65 94 04/17/17 10:54 04/17/17 10:54 04/17/17 10:54 04/17/17 10:54 04/17/17 10:54 General appearance: Present: cooperative, A&O X 3, answers questions appropriately - Eye Eye exam: Present: EOMI, PERRL, conjuntiva pink, sclera anicteric - Neck Neck exam general surgery: Present: supple, trachea midline. Absent: lymphadenopathy - Respiratory Respiratory exam: Present: CTAB. Absent: accessory muscle use, rales, rhonchi, wheezes - Cardiovascular Cardiovascular exam: Present: RRR, +S1, +S2. Absent: diastolic murmur, gallop, rubs, systolic murmur - GI/Abdominal GI/Abdominal exam: Present: normal bowel sounds, soft, no peritoneal signs. Absent: distended, tenderness - Extremities Exam Extremities exam: Present: warm, radial pulses palpable and symmetrical. Absent : calf tenderness, cyanotic, pedal edema - Neurological Exam Neurological exam: Present: alert, oriented X3, no focal deficits. Absent: facial droop, speech deficit Internal Medicine: Result - Labs CBC & Chem 7: 04/17/17 08:35 04/17/17 08:10 Labs: Short CBC 04/17/17 Range/Units 08:35 WBC 0.8 L* D (4.3-11.1) K/mcL Hgb 10.2 L (12.9-16.9) g/dL Hct 29.1 L (37.5-50.1) % Plt Count 143 (140-400) K/mcL Neutrophils # 0.2 L (1.6-8.9) K/mcL BMP 04/17/17 08:10 Sodium 134 L Potassium 3.2 L Chloride 105 Carbon Dioxide 21 L BUN 14 Creatinine 0.73 Glucose 129 H Calcium 8.1 L Cardiac Enzymes 04/17/17 Range/Units 08:10 Troponin I 0.20 H* (< 0.04) ng/mL - ABG Interpretation ABG results: PT/INR, D-dimer PT 12.0 Seconds (9.4-12.1) 04/16/17 20:05 Consult Discharge Plan - Plan Referrals: Shannan Shah MD [Primary Care Provider] -
[2017-04-18 04:14] LABS: Red Blood Count 2.48 M/mcL (4.19-5.50)
[2017-04-18 04:15] LABS: Basophils % 1.9 %; Hematocrit 27.2 % (37.5-50.1); Hemoglobin 9.3 g/dL (12.9-16.9); Lymphocytes # 0.6 K/mcL (0.6-4.6); Lymphocytes % 61.5 %; Mean Corpuscular HGB Conc 34.2 g/dL (31.6-35.5); Mean Corpuscular Hemoglobin 37.5 pg (28.0-33.3); Mean Corpuscular Volume 109.7 fL (83.0-100.0); Mean Platelet Volume 9.9 fL (9.4-12.4); Monocytes # 0.1 K/mcL (0.0-1.3); Monocytes % 7.7 %; Neutrophils # 0.3 K/mcL (1.6-8.9); Platelet Count 100 K/mcL (140-400); Segmented Neutrophils % 28.9 %
[2017-04-18 04:23] LABS: BUN/Creatinine Ratio 20 (6-26); Blood Urea Nitrogen 13 mg/dL (8-23); Calcium 8.5 mg/dL (8.6-10.3); Carbon Dioxide 24 mEq/L (23-29); Chloride 108 mEq/L (98-107); Glucose 108 mg/dL (70-105); Magnesium 1.6 mg/dL (1.6-2.6); Osmolality,Calculated 287 (280-300); Potassium 3.6 mEq/L (3.5-5.1); Sodium 138 mEq/L (136-145); eGFR For African Americans > 60 (> 60); eGFR For Non-African Americans > 60 (> 60)
[2017-04-18] MEDS: *HR* Enoxaparin 30 MG/0.3 ML SYRINGE SQ SCH (05:43)
[2017-04-18 05:55] LABS: Macrocytosis Present (Not Present); Platelet Estimate Decreased (Normal)
[2017-04-18 05:56] LABS: Anisocytosis 1+ (Not Present)
--- NOTE | 2017-04-18 08:46 | Oncology Inp Consult Note ---
Date of Encounter: 04/18/17 Time of Encounter: 10:30 Assessment and Plan (1) AML (acute myeloid leukemia) Status: Acute Assessment and plan: AML (18% blasts per [facility] path results in aspirate), decitabine q28 days with plan to treat until progression, last cycle 03/21/17-03/25/17. He is scheduled for next cycle beginning 04/25/16, may be delayed depending on recovery from current infection/neutropenia. He wishes to continue treatment following resolution of acute illness and tolerates treatment quite well with no reported side effects. Neutropenic fever- CXR 04/16/16 shows patchy opacification concerning for pneumonia. Currently treated with vancomycin and cefipime. Last fever recorded 101F. Blood counts stable, WBC 1 (improved from 0.5 since admission), neutrophil 0.3 (0.2 on admission), hgb 9.3, platelets 100. Denies s/s of bleeding. Awaiting final cx results, prelim show no growth, influenza and viral PCR negative. BP stable, lactic acid normal. Cardiology consult reviewed, following for elevated troponin, suspect due to demand ischemia. Currently asymptomatic. Patient is not a candidate for alf anticoagulation and coumadin was previously discontinued due to thrombocytopenia. If short term anticoagulation in hospital is needed per cardiology would recommend closely monitoring platelet count daily. Please refer to Dr. West's event note for further details regarding plan of care. 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 Lee is a 72 year old male with past medical history significant for hypertension, hyperlipidemia, atrial fibrillation, rheumatoid arthritis, sinusitis, status post pacemaker placement and patient of Dr. West receiving Decitabine q28 days for secondary acute myeloid leukemia, following chronic myelomonocytic leukemia, C1 decitabine (03/19 first wk). Last decitabine treatment 03/21/17 through 03/25/17. He is scheduled for next cycle on 04/25/17. Mr. Lee states he presented to [facility] for respiratory symptoms on March 31, 2017 where he was told he has pneumoccocal pneumonia however according to the patient was not started on ATB treatment at this time. Sometime after this he saw Dr. West and was started on levaquin/augmentin. Prior to his admission he began to experience worsening respiratory symptoms and fever/rigor which led to his presentation to ER. He was admitted with neutropenic fever and pneumonia. Oncology consulted for recommendation and coordination of care. Past Med Surg Social Fam HX - Past Medical History Medical history: hypertension, other Psychiatric history: no psych history - Past Surgical History Surgical History: pacemaker/AICD - Social History Smoking Status: Never smoker Smokeless Tobacco Status: No Alcohol use: none Drug use: none - Family History Mother Hx Family Cardiac Disorders: Yes (MYOCARDIAL INFARCTION.) Medications and Allergies Aspirin 81 mg PO DAILY 09/24/15 [History] Lisinopril [Zestril] 5 mg PO DAILY 09/24/15 [History] Oxazepam [Serax] 15 mg PO TID PRN 09/24/15 [History] Triamterene/HCTZ 37.5/25mg [Dyazide] 1 each PO DAILY 09/24/15 [History] Amiodarone HCl [Pacerone] 200 mg PO DAILY 10/25/16 [History] Atenolol [Tenormin] 25 mg PO DAILY 01/27/17 [History] Loratadine [Claritin] 10 mg PO DAILY #30 tablet 03/16/17 [Rx] Cholecalciferol (Vitamin D3) [Vitamin D] 2,000 unit PO DAILY 04/16/17 [History] Potassium Chloride Elixir [Potassium Chloride] 20 meq PO DAILY 04/16/17 [History ] Fluticasone Propionate Nasal [Flonase] 50 mcg NS BID 04/17/17 [History] Mineral Oil/Petrolatum,White [Refresh P.m. Ointment] 1 appl OP HS PRN 04/17/17 [ History] Polyvinyl Alcohol [Artificial Tears] 1 drop OP QID PRN 04/17/17 [History] 3 Allergy/AdvReac Type Severity Reaction Status Date / Time No Known Allergies Allergy Verified 01/21/16 08:25 Constitutional: Present: chills, fatigue, fever(s), weakness. Absent: headache( s), weight loss Eyes: Absent: change in vision Nose, mouth and throat: Absent: sinus pressure, sore throat Cardiovascular: Absent: chest pain, palpitations Respiratory: Present: cough, dyspnea on exertion, chest congestion. Absent: pain with cough Gastrointestinal: Absent: abdominal pain, change in bowel habits, nausea, vomiting Additional comments: denies dysuria or hematuria Musculoskeletal: Present: muscle weakness. Absent: numbness, tingling Integumentary: Absent: wounds Neurological: Absent: focal weakness, headache(s), vertigo Hematologic/Lymphatic: Absent: lymphadenopathy Oncology - Exam - Constitutional Vitals: Temp Pulse Resp BP Pulse Ox 98.9 F 95 16 147/74 91 04/18/17 07:44 04/18/17 07:44 04/18/17 07:44 04/18/17 07:44 04/18/17 07:44 General appearance: cooperative, no acute distress, no febrile - Head Head exam: Present: atraumatic - Respiratory Respiratory exam: Present: decreased breath sounds, wheezes - Cardiovascular Cardiovascular exam: Present: RRR, +S1, +S2 - GI/Abdominal GI/Abdominal exam: Present: normal bowel sounds, soft. Absent: tenderness - Extremities Exam Extremities exam: Present: pedal edema Additional comments: 1+ non pitting - Neurological Exam Neurological exam: Present: alert, oriented X3, strengths equal and symetr throughout. Absent: no focal deficits - Psychiatric Psychiatric exam: Present: normal affect, normal mood - Skin Skin exam: Present: pallor, warm Oncology - Results Labs: Short CBC 04/18/17 Range/Units 03:43 WBC 1.0 L* (4.3-11.1) K/mcL Hgb 9.3 L (12.9-16.9) g/dL Hct 27.2 L (37.5-50.1) % Plt Count 100 L (140-400) K/mcL Neutrophils # 0.3 L (1.6-8.9) K/mcL BMP 04/18/17 03:43 Sodium 138 Potassium 3.6 Chloride 108 H Carbon Dioxide 24 BUN 13 Creatinine 0.66 L Glucose 108 H Calcium 8.5 L Consult Discharge Plan - Plan Referrals: Shannan Shah MD [Primary Care Provider] -
[2017-04-18] MEDS: Cefepime HCl 2,000 MG in Water for inj. (sterile) 20 ML 20 ML IVP SCH ×2 (08:52→21:04)
[2017-04-18] MEDS: Loratadine 10 MG TABLET PO SCH (08:53)
[2017-04-18] MEDS: Aspirin 81 MG TAB.CHEW PO SCH (08:53)
[2017-04-18] MEDS: *HR* Amiodarone 200 MG TABLET PO SCH (08:53)
--- NOTE | 2017-04-18 10:15 | Event Note ---
Date of Encounter: 04/18/17 Time of Encounter: 12:00 Patient seen, examined bedside. Please refer to Jolly Wiseman's notes for full consult recommendations. Patient with AML on decitabine since 04/18/17, with stable blood counts hospitalized for neutropenic fever. BC, [employer] swabs neg for infection, CXR patchy opacifiaction on vanc, zosyn. Add neupogen, WBC is improving. If anticoag in hospital need to be considered, monitor plt daily. He is not a candidate for prison anticoagulation due to fluctuating plt counts, thrombocytopenia. Cardiiology, consult, recommendations appreciated.
--- NOTE | 2017-04-18 10:52 | Cardiology Progress Note ---
Date of Encounter: 04/18/17 Time of Encounter: 10:00 Assessment and Plan (1) Pneumonia Current Visit: Yes Status: Acute Per cardiology: -Admitted with fever, chills, shortness of breath. -CHest x-ray with pneumonia. -Management per primary service. Qualifiers: Pneumonia type: due to unspecified organism Laterality: right Lung location: unspecified part of lung Qualified Code(s): J18.9 - Pneumonia, unspecified organism (2) AML (acute myeloid leukemia) Current Visit: Yes Status: Acute Per cardiology: -Known AML. -Per oncology note today, patient is not a candidate for mcfp anticoagulation due to pancytopenia. -Follows with oncology. Qualifiers: Leukemia Active/Remission status: without remission Qualified Code(s): C92.00 - Acute myeloblastic leukemia, not having achieved remission (3) Elevated troponin Current Visit: Yes Status: Acute Per cardiology: -Troponins 0.05, 0.2, 0.16 in the setting of pneumonia. -Denies chest pain. -ECG abnormal, no previous ECGs at [facility]. -ON asa, beta melissa. Not on heparin/lovenox due to pancytopenia. -Of note, patient is pancytopenic. Per oncology not a candidate for mcfp anticoagulation due to pancytopenia. PLatelets 04/07/17 noted to be 19. -TTE with LVEF 60%, mildly dilated RV with normal function, mild MR, mildly sceroltic aortic valve leaflets, Mild TR, mid anterior septal and basal anterior septal bailon dyskinetic. Unknown previous TTE. Awaiting records. -DO not suspect NSTEMI at this time, suspect demand ischemia. -Of note, patient is a poor candidate for inavsive cardiac work up due to not a candidate for mcfp anticoagulation. -Will obtain previous cardiac records from [place], records have been requested. (4) Atrial fibrillation Current Visit: Yes Status: Acute Per cardiology: -Patient reports a,fib, states he had to stop coumadin due to his labs. Patient is aware of increased risk of CVA. -On beta melissa. -Rate controlled. -Will continue to monitor. -Not a candidate for anticoagulation per oncology due to pancytopenia. Qualifiers: Atrial fibrillation type: permanent Qualified Code(s): I48.2 - Chronic atrial fibrillation Discussion w patient/family: The assessment and plan as outlined above was discussed with the patient who expressed understanding and agreement. All questions were answered. Thank you for involving us in the care of your patient. Please call with any questions. Discussed and reviewed with . Subjective Principal diagnosis: PNA Interval history: Patient denies chest pain. States breathing somewhat improved today. Objective Vital Signs, Last 4 Hours Temp Pulse Resp BP Pulse Ox 04/18/17 07:44 98.9 F 95 16 147/74 91 General: Conversant, No Apparent Distress HEENT: Atraumatic, Normocephaly, Mucus Membranes Moist Neck: No JVD, Normal carotid pulses Cardiac: Reg Rate and Rhythm, Normal S1 and S2, No Murmur Lungs: Other (Lung sounds coarse to bilateral bases. ) Neuro: Alert and responsive, No focal deficits noted Abdomen: Soft, Non-Tender Skin: No rashes noted on visualized skin Musculoskeletal: No Chest Wall Tenderness Extremities: No Clubbing, No Cyanosis, Normal Pulses, Other (Mild bilateral pedal edema noted, non-pitting. ) Results 04/18/17 03:43 04/18/17 03:43 Lab Results Impressions Echocardiogram 04/18/17 07:00 Impressions: LVEF 60%. Indeterminate diastolic function. Mildly dilated RV with normal function. Mild mitral regurgitation. Mildly sclerotic aortic valve leaflets. Mild tricuspid regurgitation. No pulmonary hypertension. Left Ventricular Wall Motion: Rest Echo Findings The mid anterior septal and basal anterior septal bailon were dyskinetic. All other wall segments showed normal motion. Findings: Study Quality * Technically challenging due to body habitus. ECG Findings * Atrial fibrillation with BBB. Left Ventricle * LVEF 60%. * Indeterminate diastolic function. * Atypical septal motion consistent with bundle branch block. * Normal LV size and wall thickness. Right Ventricle * Mildly dilated RV with normal function. Left Atrium * Moderately dilated left atrium. Right Atrium * Normal right atrial size. Mitral Valve * Normal mitral valve structure. * No mitral stenosis. * Mild mitral annular calcification * Mild mitral regurgitation. Aortic Valve * No aortic regurgitation. * No aortic stenosis. * Mildly sclerotic aortic valve leaflets. * Trileaflet aortic valve. Tricuspid Valve * Tricuspid valve not well visualized. * Mild tricuspid regurgitation. * Estimated RA pressure is 3 mmHg. * Estimated RVSP is 20 mmHg. * No pulmonary hypertension. Pulmonic Valve * Pulmonic valve is not well visualized. * No pulmonic stenosis. * No pulmonic regurgitation. Pulmonary Artery * Pulmonary artery not well visualized. Aorta * Not well visualized. Pericardium * There is no pericardial effusion present. Device lead * A device lead was visualized in the right atrium and right ventricle. Interatrial Septum * No evidence of PFO by color Doppler. IVC * Normal IVC dimensions and inspiratory collapse. Active Medications Acetaminophen (Tylenol) 325 mg PO Q4HR PRN PRN Reason: Pain Stop: 10/17/17 00:52 Last Admin: 04/17/17 19:48 Dose: 325 mg Amiodarone HCl (Cordarone) 200 mg PO DAILY [facility] Stop: 10/17/17 09:01 Last Admin: 04/18/17 08:53 Dose: 200 mg Aspirin (Aspirin) 81 mg PO DAILY [facility] Stop: 10/17/17 09:01 Last Admin: 04/18/17 08:53 Dose: 81 mg Atenolol (Tenormin) 25 mg PO DAILY [facility] Stop: 10/17/17 09:01 Last Admin: 04/18/17 08:53 Dose: 25 mg Enoxaparin Sodium (Lovenox) 30 mg SQ 0600 [facility] PRN Reason: Protocol Stop: 10/17/17 06:01 Last Admin: 04/18/17 05:43 Dose: Not Given Cefepime HCl 2,000 mg/ Sterile (Water) 20 mls @ 300 mls/hr IVP Q12H [facility] Stop: 10/17/17 09:01 Last Admin: 04/18/17 08:52 Dose: 300 mls/hr Vancomycin HCl 1,250 mg/ (Dextrose) 250 mls @ 166.667 mls/hr IVPB Q12H [facility] Stop: 10/17/17 10:01 Last Infusion: 04/17/17 22:35 Dose: Infused Potassium Chloride/Sodium Chloride (Kcl 20 Meq In 0.9% Sodium Chloride) 20 meq in 1,000 mls @ 100 mls/hr IVC .Q10H [facility] Stop: 10/17/17 09:31 Last Admin: 04/17/17 20:04 Dose: 100 mls/hr Loratadine (Claritin) 10 mg PO DAILY [facility] PRN Reason: Protocol Stop: 10/17/17 09:01 Last Admin: 04/18/17 08:53 Dose: 10 mg Naloxone HCl (Narcan) 0.4 mg IVP Q2MIN PRN PRN Reason: Opioid Reversal Stop: 10/16/17 23:03 Oxazepam (Serax) 15 mg PO TID PRN PRN Reason: Anxiety Stop: 10/17/17 09:01 Last Admin: 04/18/17 08:53 Dose: 15 mg Potassium Chloride (Potassium Chloride) 20 meq PO DAILY [facility] Stop: 10/17/17 09:31 Last Admin: 04/18/17 08:53 Dose: 20 meq Laboratory Tests 04/07/17 04/16/17 04/18/17 10:28 20:05 03:43 WBC 1.0 L* Hgb 9.3 L Plt Count 19 L* 130 L 100 L Creatinine 04/18/17 03:43 WBC Hgb Plt Count Creatinine 0.66 L - Imaging and Cardiology Chest Xray: report reviewed Echo: report reviewed - EKG Interpretation EKG results cardiology: other (Telemetry reviewed with average HR previous 12 hours noted to be 89, paced rhythm. PVCs and PACs noted.) Consult Discharge Plan - Plan Referrals: Shannan Shah MD [Primary Care Provider] -
--- NOTE | 2017-04-18 14:21 | Electrocardiograph Report ---
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
[2017-04-18] MEDS: Vancomycin 1,250 MG in D5% in Water 250 ML IVPB SCH (14:22)
[2017-04-18] MEDS: 0.9 % Sodium Chloride w KCl 20 MEQ/1,000 ML MLS IVC SCH ×2 (14:23)
--- NOTE | 2017-04-18 15:36 | Internal Med Progress Note ---
Date of Encounter: 04/18/17 Time of Encounter: 11:40 - Assessment and plan (1) Neutropenic fever Current Visit: Yes Status: Acute Assessment and plan: Continue broad-spectrum antibiotics for now. Culture results are so far negative. If remains negative, we will begin to de-escalate antibiotics tomorrow. Oncology input appreciated. Moderate risk for complications. (2) Pneumonia Current Visit: Yes Status: Suspected Assessment and plan: Treating with cefepime and vancomycin. Blood cultures so far negative. Respiratory panel negative. Qualifiers: Pneumonia type: due to methicillin-resistant Staphylococcus aureus (MRSA) Laterality: right Lung location: unspecified part of lung Qualified Code(s) : J15.212 - Pneumonia due to Methicillin resistant Staphylococcus aureus (3) AML (acute myeloid leukemia) Current Visit: Yes Status: Acute Assessment and plan: Has been receiving Dacogen as outpatient. Oncology input appreciated. Continue follow up with oncology after discharge. Qualifiers: Leukemia Active/Remission status: without remission Qualified Code(s): C92.00 - Acute myeloblastic leukemia, not having achieved remission (4) Elevated troponin Current Visit: Yes Status: Acute Assessment and plan: Cardiology consult appreciated. Appears to be from demand ischemia. No further cardiac workup planned at this time. 2-D echocardiogram shows EF of 60 % with indeterminate diastolic function. - Subjective Interval history: Patient is doing well this morning. Denies any new complaints. Did have fever last evening with MAXIMUM TEMPERATURE of 101. Temperature has been well controlled since then. No shortness of breath. No chest pain. - Constitutional Vitals: Temp Pulse Resp BP Pulse Ox 97.6 F 93 16 124/73 92 04/18/17 11:29 04/18/17 11:29 04/18/17 11:29 04/18/17 11:29 04/18/17 11:29 General appearance: Present: cooperative, A&O X 3, answers questions appropriately - Neck Neck exam general surgery: Present: supple, trachea midline. Absent: lymphadenopathy - Respiratory Respiratory exam: Present: CTAB. Absent: accessory muscle use, rales, rhonchi, wheezes - Cardiovascular Cardiovascular exam: Present: RRR, +S1, +S2. Absent: diastolic murmur, gallop, rubs, systolic murmur - GI/Abdominal GI/Abdominal exam: Present: normal bowel sounds, soft, no peritoneal signs. Absent: distended, tenderness - Extremities Exam Extremities exam: Present: warm, radial pulses palpable and symmetrical. Absent : calf tenderness, cyanotic, pedal edema Internal Medicine: Result - Labs CBC & Chem 7: 04/18/17 03:43 04/18/17 03:43 Labs: Short CBC 04/18/17 Range/Units 03:43 WBC 1.0 L* (4.3-11.1) K/mcL Hgb 9.3 L (12.9-16.9) g/dL Hct 27.2 L (37.5-50.1) % Plt Count 100 L (140-400) K/mcL Neutrophils # 0.3 L (1.6-8.9) K/mcL BMP 04/18/17 03:43 Sodium 138 Potassium 3.6 Chloride 108 H Carbon Dioxide 24 BUN 13 Creatinine 0.66 L Glucose 108 H Calcium 8.5 L Cardiac Enzymes 04/18/17 Range/Units 10:17 Troponin I 0.16 H* (< 0.04) ng/mL - ABG Interpretation ABG results: PT/INR, D-dimer PT 12.0 Seconds (9.4-12.1) 04/16/17 20:05 - Impressions Impressions Echocardiogram 04/18/17 07:00 Impressions: LVEF 60%. Indeterminate diastolic function. Mildly dilated RV with normal function. Mild mitral regurgitation. Mildly sclerotic aortic valve leaflets. Mild tricuspid regurgitation. No pulmonary hypertension. Left Ventricular Wall Motion: Rest Echo Findings The mid anterior septal and basal anterior septal bailon were dyskinetic. All other wall segments showed normal motion. Findings: Study Quality * Technically challenging due to body habitus. ECG Findings * Atrial fibrillation with BBB. Left Ventricle * LVEF 60%. * Indeterminate diastolic function. * Atypical septal motion consistent with bundle branch block. * Normal LV size and wall thickness. Right Ventricle * Mildly dilated RV with normal function. Left Atrium * Moderately dilated left atrium. Right Atrium * Normal right atrial size. Mitral Valve * Normal mitral valve structure. * No mitral stenosis. * Mild mitral annular calcification * Mild mitral regurgitation. Aortic Valve * No aortic regurgitation. * No aortic stenosis. * Mildly sclerotic aortic valve leaflets. * Trileaflet aortic valve. Tricuspid Valve * Tricuspid valve not well visualized. * Mild tricuspid regurgitation. * Estimated RA pressure is 3 mmHg. * Estimated RVSP is 20 mmHg. * No pulmonary hypertension. Pulmonic Valve * Pulmonic valve is not well visualized. * No pulmonic stenosis. * No pulmonic regurgitation. Pulmonary Artery * Pulmonary artery not well visualized. Aorta * Not well visualized. Pericardium * There is no pericardial effusion present. Device lead * A device lead was visualized in the right atrium and right ventricle. Interatrial Septum * No evidence of PFO by color Doppler. IVC * Normal IVC dimensions and inspiratory collapse. Consult Discharge Plan - Plan Referrals: Shannan Shah MD [Primary Care Provider] -
[2017-04-19 00:54] LABS: Basophils % 0.4 %; Hematocrit 26.1 % (37.5-50.1); Hemoglobin 8.9 g/dL (12.9-16.9); Immature Granulocytes % 0.4 % (0-4); Lymphocytes % 39.3 %; Mean Corpuscular HGB Conc 34.1 g/dL (31.6-35.5); Mean Corpuscular Hemoglobin 37.7 pg (28.0-33.3); Mean Corpuscular Volume 110.6 fL (83.0-100.0); Mean Platelet Volume 9.9 fL (9.4-12.4); Monocytes # 0.2 K/mcL (0.0-1.3); Monocytes % 6.2 %; Neutrophils # 1.3 K/mcL (1.6-8.9); Platelet Count 116 K/mcL (140-400); Red Blood Count 2.36 M/mcL (4.19-5.50); Segmented Neutrophils % 53.7 %
[2017-04-19 00:59] LABS: Lymphocytes # 0.9 K/mcL (0.6-4.6)
[2017-04-19 01:07] LABS: BUN/Creatinine Ratio 24 (6-26); Blood Urea Nitrogen 18 mg/dL (8-23); Calcium 8.5 mg/dL (8.6-10.3); Carbon Dioxide 23 mEq/L (23-29); Chloride 108 mEq/L (98-107); Glucose 112 mg/dL (70-105); Magnesium 1.4 mg/dL (1.6-2.6); Osmolality,Calculated 287 (280-300); Potassium 3.4 mEq/L (3.5-5.1); Sodium 137 mEq/L (136-145); eGFR For African Americans > 60 (> 60); eGFR For Non-African Americans > 60 (> 60)
[2017-04-19 01:42] LABS: Macrocytosis Present (Not Present); Platelet Estimate Decreased (Normal); Polychromasia 1+ (Not Present); Reactive Lymphocytes Present (Not Present); Toxic Granulation Present (Not Present)
[2017-04-19] MEDS ORDERED: Vancomycin 1,250 MG in D5% in Water 250 ML IVPB SCH (02:00)
[2017-04-19] MEDS: 0.9 % Sodium Chloride w KCl 20 MEQ/1,000 ML MLS IVC SCH ×2 (02:18→14:01)
[2017-04-19] MEDS: *HR* Enoxaparin 30 MG/0.3 ML SYRINGE SQ SCH (05:17)
[2017-04-19] MEDS: Cefepime HCl 2,000 MG in Water for inj. (sterile) 20 ML 20 ML IVP SCH ×2 (08:12→20:53)
[2017-04-19] MEDS: *HR* Amiodarone 200 MG TABLET PO SCH (08:13)
[2017-04-19] MEDS: Acetaminophen 325 MG TABLET PO PRN ×2 (08:13→19:36)
[2017-04-19] MEDS: Loratadine 10 MG TABLET PO SCH (08:13)
[2017-04-19] MEDS: Aspirin 81 MG TAB.CHEW PO SCH (08:14)
--- NOTE | 2017-04-19 08:48 | Oncology Inp Progress Note ---
<Jolly Wiseman Jayne - Last Filed: 04/19/17 14:20> Date of Encounter: 04/19/17 Time of Encounter: 08:47 (1) AML (acute myeloid leukemia) Current Visit: Yes Status: Acute Assessment and plan: AML (18% blasts per [facility] path results in aspirate), decitabine q28 days with plan to treat until progression, last cycle 03/21/17-03/25/17. He is scheduled for next cycle beginning 04/25/16, may be delayed 1 week depending on recovery from current infection/neutropenia. He wishes to continue treatment following resolution of acute illness and tolerates treatment quite well with no reported side effects. Neutropenic fever- Improving. CXR 04/16/16 shows patchy opacification concerning for pneumonia. Currently treated with vancomycin and cefipime. Blood counts improving, WBC 2.4 and neutrophil now 1.4-may discontinue neutropenic precautions, he continued to experience fevers throughout night, last fever 101.9 at about 0700 this am, plan to continue IV ATB and to monitor fever trend Awaiting final cx results, prelim show no growth, influenza and viral PCR negative. BP stable, lactic acid normal. Cardiology consult reviewed, troponin elevation not consistent with ACS, no further intervention needed at this time. Please refer to Dr. Sarabia's attestation below for further details. Qualifiers: Leukemia Active/Remission status: without remission Qualified Code(s): C92.00 - Acute myeloblastic leukemia, not having achieved remission Oncology: Subj Interval history: Mr. Lee is feeling about the same this morning. Continues to report respiratory symptoms of cough, wheezing and SOB, denies pain, nausea, vomiting, or any s/s of bleeding. Requesting stool softener for constipation. - Constitutional Vitals: Vital Signs Temp Pulse Resp BP Pulse Ox 04/19/17 08:10 149/65 04/19/17 07:18 101.9 F H 94 18 97/64 93 04/19/17 06:08 100 F H 04/19/17 04:32 101.6 F H 85 16 116/68 91 04/18/17 23:37 99.0 F 105 16 136/74 90 04/18/17 18:45 99.0 F 90 16 120/73 92 04/18/17 16:20 100.6 F H 94 16 133/72 93 04/18/17 11:29 97.6 F 93 16 124/73 92 Intake and Output 04/18/17 04/19/17 04/19/17 23:59 07:59 15:59 Intake Total 20 20 1000 / 1000 Output Total 200 / 200 Balance 20 / 20 800 / 800 Intake: IV Fluids 20 / 20 1000 / 1000 KCl 20 mEq in 0.9% Sodium 1000 / 1000 Chloride 20 meq In 1,000 ml @ 100 mls/hr IVC .Q10H [facility] Rx#: [id number] Maxipime 2,000 MG In Water for 20 20 inj. (sterile) 20 ML @ 300 mls/ hr IVP Q12H [facility] Rx#:[id number] Output: Urine 200 / 200 Other: Weight 74.707 kg Patient Weight 04/19/17 23:59 Weight 74.707 kg General appearance: febrile, cooperative, no acute distress - Head Head exam: Present: atraumatic - Respiratory Respiratory exam: Present: wheezes - Cardiovascular Cardiovascular exam: Present: RRR, +S1, +S2 - GI/Abdominal GI/Abdominal exam: Present: normal bowel sounds, soft. Absent: guarding, tenderness - Extremities Exam Extremities exam: Present: pedal edema - Neurological Exam Neurological exam: Present: alert, oriented X3, strengths equal and symetr throughout. Absent: no focal deficits, facial droop - Psychiatric Psychiatric exam: Present: normal affect, normal mood - Skin Skin exam: Present: pallor, warm Oncology: Obj Data - Labs CBC & Chem 7: 04/19/17 00:38 04/19/17 00:38 - Impressions Impressions Echocardiogram 04/18/17 07:00 Impressions: LVEF 60%. Indeterminate diastolic function. Mildly dilated RV with normal function. Mild mitral regurgitation. Mildly sclerotic aortic valve leaflets. Mild tricuspid regurgitation. No pulmonary hypertension. Left Ventricular Wall Motion: Rest Echo Findings The mid anterior septal and basal anterior septal bailon were dyskinetic. All other wall segments showed normal motion. - ABG Interpretation ABG results: PT/INR, D-dimer PT 12.0 Seconds (9.4-12.1) 04/16/17 20:05 Consult Discharge Plan - Plan Referrals: Shannan Shah MD [Primary Care Provider] - <Horace Sarabia - Last Filed: 04/19/17 21:34> Date of Encounter: 04/19/17 - Constitutional Vitals: Vital Signs Temp Pulse Resp BP Pulse Ox 04/19/17 20:55 99.0 F 04/19/17 19:23 103.0 F H 87 17 131/72 98 04/19/17 15:59 98.2 F 95 18 119/78 92 04/19/17 11:18 98.6 F 79 16 96/62 92 04/19/17 10:09 98.7 F 04/19/17 08:10 149/65 04/19/17 07:18 101.9 F H 94 18 97/64 93 04/19/17 06:08 100 F H 04/19/17 04:32 101.6 F H 85 16 116/68 91 04/18/17 23:37 99.0 F 105 16 136/74 90 Intake and Output 04/19/17 04/19/17 04/20/17 08:59 16:59 00:59 Intake Total 1480 / 1480 Output Total 200 / 200 400 / 400 175 / 175 Balance -200 / -200 1080 / 1080 -175 / -175 Intake: IV Fluids 1000 / 1000 KCl 20 mEq in 0.9% Sodium 1000 / 1000 Chloride 20 meq In 1,000 ml @ 100 mls/hr IVC .Q10H [facility] Rx#: [id number] Oral 480 / 480 Output: Urine 200 / 200 400 / 400 175 / 175 Other: Meal Lunch Percent of Meal Consumed 100% Weight 74.707 kg Patient Weight 04/20/17 00:59 Weight 74.707 kg Oncology: Obj Data - Labs CBC & Chem 7: 04/19/17 00:38 04/19/17 00:38 Labs: Laboratory Results - last 24 hr 04/19/17 04/19/17 04/19/17 00:38 00:38 00:38 WBC 2.4 L D RBC 2.36 L Hgb 8.9 L Hct 26.1 L MCV 110.6 H MCH 37.7 H MCHC 34.1 RDW 16.0 H Plt Count 116 L MPV 9.9 Immature Gran % 0.4 Seg Neutrophils % 53.7 Lymphocytes % 39.3 Monocytes % 6.2 Eosinophils % 0.0 Basophils % 0.4 Neutrophils # 1.3 L Lymphocytes # 0.9 Monocytes # 0.2 Eosinophils # 0.0 Basophils # 0.0 Reactive Lymphocytes Present A Toxic Granulation Present A Platelet Estimate Decreased L Polychromasia 1+ A Macrocytosis Present A Sodium 137 Potassium 3.4 L Chloride 108 H Carbon Dioxide 23 BUN 18 Creatinine 0.76 Est GFR ( Amer) > 60 Est GFR (Non-Af Amer) > 60 BUN/Creatinine Ratio 24 Glucose 112 H Calculated Osmolality 287 Lactic Acid 1.9 Calcium 8.5 L Magnesium 1.4 L Vancomycin Trough 04/19/17 00:38 WBC RBC Hgb Hct MCV MCH MCHC RDW Plt Count MPV Immature Gran % Seg Neutrophils % Lymphocytes % Monocytes % Eosinophils % Basophils % Neutrophils # Lymphocytes # Monocytes # Eosinophils # Basophils # Reactive Lymphocytes Toxic Granulation Platelet Estimate Polychromasia Macrocytosis Sodium Potassium Chloride Carbon Dioxide BUN Creatinine Est GFR ( Amer) Est GFR (Non-Af Amer) BUN/Creatinine Ratio Glucose Calculated Osmolality Lactic Acid Calcium Magnesium Vancomycin Trough 11.5 - ABG Interpretation ABG results: PT/INR, D-dimer PT 12.0 Seconds (9.4-12.1) 04/16/17 20:05 - Attending Attestation I examined this patient and my medical decision-making was reviewed with the Advanced Practice Nurse. I agree with the documented findings, disposition and treatment plan as described except to the extent set forth below. Mr. Lee is doing well. He is recovering from neutropenic fever without issue. ANC 1300 today. Fevers persist, however. Blood cultures, influenza negative. Lungs with diminished BS at bases, exam otherwise unremarkable. Agree with antibiotics and viral respiratory panel. Will likely delay therapy by one week given current fever.
[2017-04-19] MEDS: Vancomycin 1,500 MG in D5% in Water 250 ML IVPB SCH (14:01)
--- NOTE | 2017-04-19 14:48 | Internal Med Progress Note ---
Date of Encounter: 04/19/17 Time of Encounter: 14:45 - Assessment and plan (1) Neutropenic fever Current Visit: Yes Status: Acute Assessment and plan: Fevers persistent. Tmax 04/19/17: 101.9. Likely pneumonia based on imaging, Will need to check viral source as well, currently on broad spectrum antibiotics. Will consider treating viral pneumonia if no improving or consult ID. Blood cultures 04/16: No growth to date. Continue broad-spectrum antibiotics for now. Obtain sputum culture Obtain serial procalcitonin q48-72 hours to monitor antibiotic treatment efficacy. If cultures remains negative, we will deescalate antibiotic therapy. Oncology input appreciated. Moderate risk for complications. (2) Pneumonia Current Visit: Yes Status: Suspected Assessment and plan: Treating with cefepime and vancomycin. Blood cultures so far negative. Respiratory panel negative. Qualifiers: Pneumonia type: due to methicillin-resistant Staphylococcus aureus (MRSA) Laterality: right Lung location: unspecified part of lung Qualified Code(s) : J15.212 - Pneumonia due to Methicillin resistant Staphylococcus aureus (3) AML (acute myeloid leukemia) Current Visit: Yes Status: Acute Assessment and plan: Has been receiving Dacogen as outpatient. Oncology input appreciated. Continue follow up with oncology after discharge. 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 Rate controlled with atenolol, amiodarone. Qualifiers: Atrial fibrillation type: permanent Qualified Code(s): I48.2 - Chronic atrial fibrillation (5) Elevated troponin Current Visit: Yes Status: Resolved Assessment and plan: Appears to be from demand ischemia. No further cardiac workup planned at this time. 2-D echocardiogram shows EF of 60% with indeterminate diastolic function. (6) CMML (chronic myelomonocytic leukemia) Current Visit: No Status: Acute Assessment and plan: Oncology consulted and recommendations appreciated. Qualifiers: Leukemia Active/Remission status: without remission Qualified Code(s): C93.10 - Chronic myelomonocytic leukemia not having achieved remission - Subjective Interval history: Patient complains of constipation today. He denies fevers/chills, n/v. Though he does have documented fevers overnight. - Constitutional Vitals: Temp Pulse Resp BP Pulse Ox 98.6 F 79 16 96/62 92 04/19/17 11:18 04/19/17 11:18 04/19/17 11:18 04/19/17 11:18 04/19/17 11:18 General appearance: Present: cooperative, A&O X 3, answers questions appropriately Internal Medicine: Result - Labs CBC & Chem 7: 04/19/17 00:38 04/19/17 00:38 Labs: Short CBC 04/19/17 Range/Units 00:38 WBC 2.4 L D (4.3-11.1) K/mcL Hgb 8.9 L (12.9-16.9) g/dL Hct 26.1 L (37.5-50.1) % Plt Count 116 L (140-400) K/mcL Neutrophils # 1.3 L (1.6-8.9) K/mcL BMP 04/19/17 00:38 Sodium 137 Potassium 3.4 L Chloride 108 H Carbon Dioxide 23 BUN 18 Creatinine 0.76 Glucose 112 H Calcium 8.5 L - ABG Interpretation ABG results: PT/INR, D-dimer PT 12.0 Seconds (9.4-12.1) 04/16/17 20:05 Consult Discharge Plan - Plan Referrals: Shannan Shah MD [Primary Care Provider] -
[2017-04-19] MEDS ORDERED: Micafungin 100 MG in 0.9 % Sodium Chloride 100 ML IVPB SCH (17:45)
[2017-04-19] MEDS: Micafungin 100 MG in 0.9 % Sodium Chloride Mini Bag 100 ML IVPB SCH (21:10)
[2017-04-20] MEDS: Vancomycin 1,500 MG in D5% in Water 250 ML IVPB SCH ×2 (01:29→13:30)
[2017-04-20 05:12] LABS: Basophils % 0.4 %; Eosinophils % 0.8 %; Hematocrit 25.1 % (37.5-50.1); Hemoglobin 8.4 g/dL (12.9-16.9); Immature Granulocytes % 1.1 % (0-4); Lymphocytes % 35.8 %; Mean Corpuscular HGB Conc 33.5 g/dL (31.6-35.5); Mean Corpuscular Hemoglobin 36.8 pg (28.0-33.3); Mean Corpuscular Volume 110.1 fL (83.0-100.0); Mean Platelet Volume 10.2 fL (9.4-12.4); Monocytes # 0.4 K/mcL (0.0-1.3); Monocytes % 15.8 %; Neutrophils # 1.2 K/mcL (1.6-8.9); Platelet Count 115 K/mcL (140-400); Red Blood Count 2.28 M/mcL (4.19-5.50); Red Cell Distribution Width 15.9 % (11.5-14.5); Segmented Neutrophils % 46.1 %
[2017-04-20] MEDS: *HR* Enoxaparin 30 MG/0.3 ML SYRINGE SQ SCH (05:25)
[2017-04-20 05:27] LABS: BUN/Creatinine Ratio 28 (6-26); Blood Urea Nitrogen 17 mg/dL (8-23); Carbon Dioxide 25 mEq/L (23-29); Chloride 109 mEq/L (98-107); Glucose 115 mg/dL (70-105); Osmolality,Calculated 288 (280-300); Potassium 3.4 mEq/L (3.5-5.1); Sodium 138 mEq/L (136-145); eGFR For African Americans > 60 (> 60); eGFR For Non-African Americans > 60 (> 60)
[2017-04-20 06:00] LABS: Large Platelets Present (Not Present); Macrocytosis Present (Not Present); Platelet Estimate Decreased (Normal); Reactive Lymphocytes Present (Not Present); Toxic Granulation Present (Not Present)
[2017-04-20] MEDS: 0.9 % Sodium Chloride w KCl 20 MEQ/1,000 ML MLS IVC SCH ×2 (06:50→22:45)
[2017-04-20] MEDS: *HR* Amiodarone 200 MG TABLET PO SCH (08:18)
[2017-04-20] MEDS: Loratadine 10 MG TABLET PO SCH (08:18)
[2017-04-20] MEDS: Cefepime HCl 2,000 MG in Water for inj. (sterile) 20 ML 20 ML IVP SCH ×2 (08:18→21:14)
[2017-04-20] MEDS: Aspirin 81 MG TAB.CHEW PO SCH (08:18)
[2017-04-20] MEDS: Acetaminophen 325 MG TABLET PO PRN (08:19)
[2017-04-20] MEDS: Micafungin 100 MG in 0.9 % Sodium Chloride Mini Bag 100 ML IVPB SCH (08:19)
--- NOTE | 2017-04-20 10:37 | Oncology Inp Progress Note ---
<Horace Sarabia S - Last Filed: 04/20/17 20:53> Date of Encounter: 04/20/17 - Constitutional Vitals: Vital Signs Temp Pulse Resp BP Pulse Ox 04/20/17 18:50 99 F 89 16 168/89 93 04/20/17 15:51 98.7 F 85 16 147/82 94 04/20/17 11:32 98.3 F 80 20 123/64 92 04/20/17 06:58 99.9 F H 100 18 148/74 91 04/20/17 03:24 98.1 F 85 17 136/77 91 04/20/17 01:40 98.1 F 04/19/17 22:49 98.1 F 87 16 117/65 90 04/19/17 20:55 99.0 F Intake and Output 04/20/17 04/20/17 04/21/17 08:59 16:59 00:59 Intake Total 250 / 250 360 / 360 Output Total 400 / 400 Balance -150 / -150 360 / 360 Intake: IV Fluids 250 / 250 Vancocin 1,500 MG In Dextrose 5 250 / 250 % 250 ML @ 166.667 mls/hr IVPB Q12H [facility] Rx#:[id number] Oral 360 / 360 Output: Urine 400 / 400 Other: Meal Lunch Percent of Meal Consumed 100% Weight 94.982 kg Patient Weight 04/21/17 00:59 Weight 94.982 kg Oncology: Obj Data - Labs CBC & Chem 7: 04/20/17 04:36 04/20/17 04:36 Labs: Laboratory Results - last 24 hr 04/19/17 04/20/17 04/20/17 15:31 04:36 04:36 WBC 2.7 L RBC 2.28 L Hgb 8.4 L Hct 25.1 L MCV 110.1 H MCH 36.8 H MCHC 33.5 RDW 15.9 H Plt Count 115 L MPV 10.2 Immature Gran % 1.1 Seg Neutrophils % 46.1 Lymphocytes % 35.8 Monocytes % 15.8 Eosinophils % 0.8 Basophils % 0.4 Neutrophils # 1.2 L Lymphocytes # 1.0 Monocytes # 0.4 Eosinophils # 0.0 Basophils # 0.0 Reactive Lymphocytes Present A Toxic Granulation Present A Platelet Estimate Decreased L Large Platelets Present A Macrocytosis Present A Sodium 138 Potassium 3.4 L Chloride 109 H Carbon Dioxide 25 BUN 17 Creatinine 0.61 L Est GFR ( Amer) > 60 Est GFR (Non-Af Amer) > 60 BUN/Creatinine Ratio 28 H Glucose 115 H Calculated Osmolality 288 Calcium 8.0 L EBV Capsid Ag IgM Ab Negative - Impressions Impressions Abdomen/Pelvis CT 04/20/17 14:00 IMPRESSION: 1. No acute abdominal or pelvic abnormality. 2. There is nonspecific stranding adjacent to the cecum. No associated wall thickening. 3. Mild anterior bladder wall thickening, nonspecific. 4. Bilateral inguinal hernias contain nonobstructed loops of small bowel. D/ / 04/20/2017 15:40:20 Brenda Venegas MD / [facility] Interpreting Provider: Brenda Venegas MD Chest CT 04/20/17 14:00 IMPRESSION: Areas of consolidation and ground-glass opacity to the right lung most significant to the right upper lobe but also with involvement of the right middle and to a lesser extent right lower lobes. There are also mild patchy areas of ground-glass opacity to the left lower lobe without dense consolidations noted. Findings are felt to be most compatible with multifocal pneumonia. Follow-up to resolution recommended. Mediastinal and right hilar lymphadenopathy is nonspecific but may be reactive in nature. Attention can be paid on follow-up. Moderate right pleural effusion and small left pleural effusion. Atherosclerosis to include coronary artery disease. D/ / 04/20/2017 15:37:08 Antonio Cortez MD / [facility] Interpreting Provider: Antonio Cortez MD - ABG Interpretation ABG results: PT/INR, D-dimer PT 12.0 Seconds (9.4-12.1) 04/16/17 20:05 Consult Discharge Plan - Plan Referrals: Shannan Shah MD [Primary Care Provider] - - Attending Attestation I examined this patient and my medical decision-making was reviewed with the Advanced Practice Nurse. I agree with the documented findings, disposition and treatment plan as described except to the extent set forth below. He is feeling well. Stable ZAPIEN and cough. Fever [place] [address] imaging now with patchy pulmonary infiltrate likely reflective of increasing WBC and associated inflammatory response. Appreciate ID recommendations and agree with current management. Clinically, he is improving. Therapy will need to be delayed by one week. <Jolly Wiseman - Last Filed: 04/21/17 07:40> Date of Encounter: 04/20/17 Time of Encounter: 10:37 (1) AML (acute myeloid leukemia) Current Visit: Yes Status: Acute Assessment and plan: AML (18% blasts per [facility] path results in aspirate), decitabine q28 days with plan to treat until progression, last cycle 03/21/17-03/25/17. He is scheduled for next cycle beginning 04/25/16, this will be delayed 1 week depending on to allow recovery from current infection/neutropenia. He wishes to continue treatment following resolution of acute illness and tolerates treatment quite well with no reported side effects. Admitted with neutropenic fever- Currently treating with vancomycin and cefipime. Despite blood counts stabilizing he continues to experience fevers and a progressive improvement in his respiratory symptoms. ID consulted for further recommendations. He spiked a 103F temp about [address] chest today shows areas of consolidation and ground-glass opacity to the right lung most significant to the right upper lobe but also with involvement of the right middle and to a lesser extent right lower lobes, along with mild patchy areas of ground-glass opacity to the left lower lobe without dense consolidations noted most compatible with multifocal pneumonia. Worsening radiographic disease likely reflective of inflammatory response following his resolution of neutropenia. Awaiting final cx results, prelim show no growth, influenza and viral PCR negative. BP stable, lactic acid normal. Please refer to Dr. Sarabia's attestation below for further details. Qualifiers: Leukemia Active/Remission status: without remission Qualified Code(s): C92.00 - Acute myeloblastic leukemia, not having achieved remission Oncology: Subj Interval history: Mr. Lee is feeling about the same in comparison to yesterday. Feels as though his weakness is beginning to improve, respiratory symptoms and SOB remain unchanged. He denies pain, nausea, vomiting, urinary symptoms, H/A, dizziness, visual changes or rigor. Reports SOB, wheezing, cough and fever. Constipation relieved with stool softener, he had a bm yesterday. - Constitutional Vitals: Vital Signs Temp Pulse Resp BP Pulse Ox 04/20/17 06:58 99.9 F H 100 18 148/74 91 04/20/17 03:24 98.1 F 85 17 136/77 91 04/20/17 01:40 98.1 F 04/19/17 22:49 98.1 F 87 16 117/65 90 04/19/17 20:55 99.0 F 04/19/17 19:23 103.0 F H 87 17 131/72 98 04/19/17 15:59 98.2 F 95 18 119/78 92 04/19/17 11:18 98.6 F 79 16 96/62 92 Intake and Output 04/19/17 04/20/17 04/20/17 23:59 07:59 15:59 Intake Total 360 / 360 1000 / 1000 240 / 240 Output Total 325 / 325 400 / 400 Balance 35 / 35 600 / 600 240 / 240 Intake: IV Fluids 120 / 120 1000 / 1000 KCl 20 mEq in 0.9% Sodium 1000 / 1000 Chloride 20 meq In 1,000 ml @ 100 mls/hr IVC .Q10H [facility]ANCES Rx#: [id number] Maxipime 2,000 MG In Water for 20 / 20 inj. (sterile) 20 ML @ 300 mls/ hr IVP Q12H FRANCES Rx#:[id number] Mycamine 100 MG In 0.9 % Sodium 100 / 100 Chloride (Mini-Bag +) 100 ML @ 100 mls/hr IVPB DAILY FRANCES Rx#: [id number] Oral 240 / 240 240 / 240 Output: Urine 325 / 325 400 / 400 Other: Meal Lunch Breakfast Percent of Meal Consumed 100% 100% Weight 94.982 kg Patient Weight 04/20/17 23:59 Weight 94.982 kg General appearance: febrile, cooperative, no acute distress Exam: Febrile throughout night although afebrile currently. - Head Head exam: Present: atraumatic - Respiratory Respiratory exam: Present: wheezes. Absent: respiratory distress - Cardiovascular Cardiovascular exam: Present: RRR, +S1, +S2 - GI/Abdominal GI/Abdominal exam: Present: normal bowel sounds, soft. Absent: tenderness - Extremities Exam Extremities exam: Present: pedal edema. Absent: calf tenderness - Neurological Exam Neurological exam: Present: alert, oriented X3, strengths equal and symetr throughout. Absent: no focal deficits - Psychiatric Psychiatric exam: Present: normal affect, normal mood - Skin Skin exam: Present: pallor, warm Oncology: Obj Data - Labs CBC & Chem 7: 04/21/17 05:45 04/20/17 04:36 - ABG Interpretation ABG results: PT/INR, D-dimer PT 12.0 Seconds (9.4-12.1) 04/16/17 20:05
--- NOTE | 2017-04-20 10:37 | Infectious Disease Consult ---
Date of Encounter: 04/20/17 Time of Encounter: 10:37 Assessment and Plan (1) Severe sepsis Status: Acute Assessment and plan: Had 3 SIRS criteria on admission plus lactic acidosis Likely secondary to pneumonia. Patient continues to have fevers (low-grade) No obvious source identified. Review of systems is really unremarkable. Patient does not have a central line or on a port. Patients with severe neutropenia could have abscess but be asymptomatic because of the no inflammation (2) Neutropenic fever Status: Acute Assessment and plan: Etiology not clear. On admission it was thought to be secondary to a pneumonia. No causative organism was identified. On admission respiratory infectious panel, blood cultures and strep pneumo antigen were negative. Chest x-ray on admission concerning for pneumonia. Patient has been on vancomycin and cefepime and micafungin was added on 2017 Review of system and of her physical exam was really unremarkable. I always get concern for intra-abdominal process and usually patients can be asymptomatic specially with severe neutropenia. Agree with repeating blood cultures and checking Legionella antigen. I will do a CT abdomen and pelvis and CT chest with IV contrast If CT is still concerning for pneumonia might consider consult thing pulmonary and doing a bronchoscopy and checking for fungal and AFB and cultures. For now we will continue the vancomycin and cefepime. I will not DC the micafungin until the cultures finalize. We'll continue to follow closely. Monitor labs and for drug toxicity. (3) Pneumonia Status: Suspected Assessment and plan: Seen on the chest x-ray on admission 04/16/17 Associated with cough wheezing and dyspnea on exertion Causative organism has not been identified Patient has been on vancomycin and cefepime and received 1 dose of levofloxacin. Qualifiers: Pneumonia type: due to methicillin-resistant Staphylococcus aureus (MRSA) Laterality: right Lung location: unspecified part of lung Qualified Code(s) : J15.212 - Pneumonia due to Methicillin resistant Staphylococcus aureus (4) CMML (chronic myelomonocytic leukemia) Status: Acute Qualifiers: Leukemia Active/Remission status: without remission Qualified Code(s): C93.10 - Chronic myelomonocytic leukemia not having achieved remission (5) Atrial fibrillation Status: Acute Qualifiers: Atrial fibrillation type: permanent Qualified Code(s): I48.2 - Chronic atrial fibrillation Infectious Disease HPI - Data of Consult Patient: new to practice Consult date: 04/20/17 Requesting Physician: Karen Quinn MD Primary Care Provider: Shannan Rasmussen - Consult Narrative Reason for consult: Neutropenic fever History of present illness: Mr. Lee is a 72 year old male Patient is 72-year-old gentleman who was admitted on 04/16/2017 with neutropenic fever, we are consult and on 04/20/2017 for neutropenic fever and antibiotic recommendations. Patient is a 72-year-old gentleman with past medical history significant for hypertension, hyperlipidemia, atrial fibrillation, rheumatoid arthritis, sinusitis and history of pacemaker placement was diagnosed with acute myeloid leukemia following chronic myelomonocytic leukemia in March 2016. Patient has been taken Decitabine every 28 days with a loss treatment on 03/21/17 through 03/25/17. Apparently patient presented to the [place] with respiration symptoms on March 31, 2017 and was told he had pneumococcal pneumonia. [facility]act [facility] not well [facility] but patient saw hematology oncology as an outpatient and was started on a combination of levofloxacin and Augmentin. Prior to that admission patient started complaining of worsening respirations symptoms combined with fevers, rigors, chills and presented to the emergency department for evaluation. Since admission patient has been febrile with a MAXIMUM TEMPERATURE of 103 Fahrenheit. Patient was also tachycardic, and markedly neutropenic with a WBC of 0.5 and absolute neutrophil count of 200 patient was also thrombocytopenic. Lactic acid initially was 3.3. Patient also had a slight imbalance with a phosphorus of 1.6 and magnesium of 1.2. A UA was performed and it was negative. A viral respiratory infectious panel was performed on 04/17/17 and it did not detect any viruses. Influenza A and B antigen were also performed on 04/16/17 and came back negative. A streptococcal pneumo antigen was done on 04/16/17 and it came back negative. A chest x-ray was done on 04/16/17 and it was read as patchy right perihilar airspace opacities concerning for pneumonia. An echocardiogram was performed and it showed no endocarditis. Blood cultures were performed on 04/16/17 and 2 out of 2 sets were negative. Patient was initially started on vancomycin, cefepime and levofloxacin. Currently patient is on vancomycin day 5, cefepime day 5, and micafungin day 2. We were asked to evaluate the patient and make further recommendations. Currently patient is laying in bed, appears comfortable. Patient does not appear toxic. Denies any complaint. Pleasant. Alert and oriented 3. Review of system is negative for headache, sinus pressure, earache, sore throat. A shunt does not have any teeth and denies any pain in the mouth or the gum. Patient denies any neck pain. He does have a dry cough that is nonproductive. No sputum no hemoptysis. Patient denies any pleuritic chest pain but he states he does have dyspnea on exertion. Patient denies any abdominal pain. Patient denies any nausea or vomiting. No diarrhea no constipation. Patient denies any urinary symptoms. Patient denies any back pain. Patient denies any rectal pain. Patient denies any joint pain or effusion. Patient denies any rash. CC: Karen Quinn MD Past Med Surg Social Fam HX - Past Medical History Medical history: hypertension, other Psychiatric history: no psych history - Past Surgical History Surgical History: pacemaker/AICD - Social History Smoking Status: Never smoker Smokeless Tobacco Status: No Alcohol use: none Drug use: none - Family History Mother Hx Family Cardiac Disorders: Yes (MYOCARDIAL INFARCTION.) Infectious Disease-CN:Meds Aspirin 81 mg PO DAILY 09/24/15 [History] Lisinopril [Zestril] 5 mg PO DAILY 09/24/15 [History] Oxazepam [Serax] 15 mg PO TID PRN 09/24/15 [History] Triamterene/HCTZ 37.5/25mg [Dyazide] 1 each PO DAILY 09/24/15 [History] Amiodarone HCl [Pacerone] 200 mg PO DAILY 10/25/16 [History] Atenolol [Tenormin] 25 mg PO DAILY 01/27/17 [History] Loratadine [Claritin] 10 mg PO DAILY #30 tablet 03/16/17 [Rx] Cholecalciferol (Vitamin D3) [Vitamin D] 2,000 unit PO DAILY 04/16/17 [History] Potassium Chloride Elixir [Potassium Chloride] 20 meq PO DAILY 04/16/17 [History ] Fluticasone Propionate Nasal [Flonase] 50 mcg NS BID 04/17/17 [History] Mineral Oil/Petrolatum,White [Refresh P.m. Ointment] 1 appl OP HS PRN 04/17/17 [ History] Polyvinyl Alcohol [Artificial Tears] 1 drop OP QID PRN 04/17/17 [History] 3 Allergy/AdvReac Type Severity Reaction Status Date / Time No Known Allergies Allergy Verified 01/21/16 08:25 Review of systems: 10 point review of systems done, negative other for what is mentioned in the history of present illness Exam - Constitutional Vitals: Temp Pulse Resp BP Pulse Ox 99.9 F H 100 18 148/74 91 04/20/17 06:58 04/20/17 06:58 04/20/17 06:58 04/20/17 06:58 04/20/17 06:58 General appearance: febrile, cooperative, no no acute distress - Head Head exam: Present: atraumatic, normocephalic - Eye Eye exam: Present: EOMI, PERRL, sclera anicteric - ENT Additional comments: Mucous membranes dry. No oral thrush or lesions appreciated. Patient does not have his dentures in. No obvious gum disease or abscess. - Neck Neck exam: Present: full ROM. Absent: meningismus - Respiratory Additional comments: Air sounds audible both lung [place]. Chest expanding symmetrically. Diffuse wheezing audible both lung [place]. - Cardiovascular Cardiovascular exam: Present: RRR, +S1, +S2 - GI/Abdominal GI/Abdominal exam: Present: normal bowel sounds, soft. Absent: distended, rebound, rigid, tenderness - Rectal Additional comments: No perirectal abscess appreciated - Extremities Exam Extremities exam: Present: full ROM, normal inspection Additional comments: No joint effusion. No rash. - Back Exam Back exam: Absent: CVA tenderness (L), CVA tenderness (R), vertebral tenderness - Neurological Exam Neurological exam: Present: alert, oriented X3. Absent: speech deficit - Psychiatric Psychiatric exam: Present: normal affect, normal mood - Skin Skin exam: Present: normal color. Absent: rash Infectious Disease CN: Results - Labs CBC & Chem 7: 04/20/17 04:36 04/20/17 04:36 Serology: Serology 04/19/17 Range/Units 15:31 EBV Capsid Ag IgM Ab Negative (Negative) Consult Discharge Plan - Plan Referrals: Shannan Shah MD [Primary Care Provider] -
--- NOTE | 2017-04-20 17:33 | Internal Med Progress Note ---
Date of Encounter: 04/20/17 Time of Encounter: 17:31 - Assessment and plan (1) Neutropenic fever Current Visit: Yes Status: Acute Assessment and plan: Fevers persistent. Tmax 04/19/17: 101.9. Likely pneumonia based on imaging, Will need to check viral source as well, currently on broad spectrum antibiotics. Will consider treating viral pneumonia if no improving or consult ID. Blood cultures 04/16: No growth to date. Continue broad-spectrum antibiotics for now. Obtain sputum culture Obtain serial procalcitonin q48-72 hours to monitor antibiotic treatment efficacy. If cultures remains negative, we will deescalate antibiotic therapy. Oncology input appreciated. Moderate risk for complications. ID consulted, recommendations appreciated. CT abdomen/pelvis ordered to evaluate for intraabdominal process. Pending results. (2) Pneumonia Current Visit: Yes Status: Suspected Assessment and plan: Treating with cefepime and vancomycin. Blood cultures so far negative. Respiratory panel negative. ID team recommends Pulmonary consult for bronchoscopy if a CT chest today is still concerning for pneumonia. Qualifiers: Pneumonia type: due to methicillin-resistant Staphylococcus aureus (MRSA) Laterality: right Lung location: unspecified part of lung Qualified Code(s) : J15.212 - Pneumonia due to Methicillin resistant Staphylococcus aureus (3) AML (acute myeloid leukemia) Current Visit: Yes Status: Acute Assessment and plan: Has been receiving Dacogen as outpatient. Oncology input appreciated. Continue follow up with oncology after discharge. 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 Rate controlled with atenolol, amiodarone. Qualifiers: Atrial fibrillation type: permanent Qualified Code(s): I48.2 - Chronic atrial fibrillation (5) Elevated troponin Current Visit: Yes Status: Resolved Assessment and plan: Appears to be from demand ischemia. No further cardiac workup planned at this time. 2-D echocardiogram shows EF of 60% with indeterminate diastolic function. (6) CMML (chronic myelomonocytic leukemia) Current Visit: No Status: Acute Assessment and plan: Oncology consulted and recommendations appreciated. Qualifiers: Leukemia Active/Remission status: without remission Qualified Code(s): C93.10 - Chronic myelomonocytic leukemia not having achieved remission - Subjective Interval history: Patient evaluated in AM. Fever overnight Tmax 103.0 F. - Constitutional Vitals: Temp Pulse Resp BP Pulse Ox 98.7 F 85 16 147/82 94 04/20/17 15:51 04/20/17 15:51 04/20/17 15:51 04/20/17 15:51 04/20/17 15:51 General appearance: Present: cooperative, A&O X 3, answers questions appropriately Exam: CVS: RRR Lungs; CTAB Abd: NT/ND, soft Ext: no edema Skin: warm, dry Internal Medicine: Result - Labs CBC & Chem 7: 04/20/17 04:36 04/20/17 04:36 Labs: Short CBC 04/20/17 Range/Units 04:36 WBC 2.7 L (4.3-11.1) K/mcL Hgb 8.4 L (12.9-16.9) g/dL Hct 25.1 L (37.5-50.1) % Plt Count 115 L (140-400) K/mcL Neutrophils # 1.2 L (1.6-8.9) K/mcL BMP 04/20/17 04:36 Sodium 138 Potassium 3.4 L Chloride 109 H Carbon Dioxide 25 BUN 17 Creatinine 0.61 L Glucose 115 H Calcium 8.0 L - ABG Interpretation ABG results: PT/INR, D-dimer PT 12.0 Seconds (9.4-12.1) 04/16/17 20:05 - Impressions Impressions Abdomen/Pelvis CT 04/20/17 14:00 IMPRESSION: 1. No acute abdominal or pelvic abnormality. 2. There is nonspecific stranding adjacent to the cecum. No associated wall thickening. 3. Mild anterior bladder wall thickening, nonspecific. 4. Bilateral inguinal hernias contain nonobstructed loops of small bowel. D/ / 04/20/2017 15:40:20 Brenda Venegas MD / [facility] Interpreting Provider: Brenda Venegas MD Chest CT 04/20/17 14:00 IMPRESSION: Areas of consolidation and ground-glass opacity to the right lung most significant to the right upper lobe but also with involvement of the right middle and to a lesser extent right lower lobes. There are also mild patchy areas of ground-glass opacity to the left lower lobe without dense consolidations noted. Findings are felt to be most compatible with multifocal pneumonia. Follow-up to resolution recommended. Mediastinal and right hilar lymphadenopathy is nonspecific but may be reactive in nature. Attention can be paid on follow-up. Moderate right pleural effusion and small left pleural effusion. Atherosclerosis to include coronary artery disease. D/ / 04/20/2017 15:37:08 [facility] Interpre[facility] Provider: Antonio Cortez MD Consult Discharge Plan - Plan Referrals: Shannan Shah MD [Primary Care Provider] -
[2017-04-21] MEDS: Acetaminophen 325 MG TABLET PO PRN (00:36)
[2017-04-21] MEDS: Vancomycin 1,500 MG in D5% in Water 250 ML IVPB SCH ×2 (02:05→14:23)
[2017-04-21] MEDS: *HR* Enoxaparin 30 MG/0.3 ML SYRINGE SQ SCH (05:39)
[2017-04-21 06:42] LABS: Hematocrit 26.1 % (37.5-50.1); Hemoglobin 8.7 g/dL (12.9-16.9); Mean Corpuscular HGB Conc 33.3 g/dL (31.6-35.5); Mean Corpuscular Hemoglobin 36.4 pg (28.0-33.3); Mean Corpuscular Volume 109.2 fL (83.0-100.0); Mean Platelet Volume 10.6 fL (9.4-12.4); Nucleated Red Blood Cells 0.6 /100 WBC (0); Platelet Count 120 K/mcL (140-400); Red Blood Count 2.39 M/mcL (4.19-5.50); Red Cell Distribution Width 15.9 % (11.5-14.5)
[2017-04-21] MEDS: 0.9 % Sodium Chloride w KCl 20 MEQ/1,000 ML MLS IVC SCH ×2 (06:55→11:42)
[2017-04-21 07:59] LABS: BUN/Creatinine Ratio 19 (6-26); Blood Urea Nitrogen 12 mg/dL (8-23); Calcium 7.9 mg/dL (8.6-10.3); Carbon Dioxide 25 mEq/L (23-29); Chloride 108 mEq/L (98-107); Glucose 124 mg/dL (70-105); Osmolality,Calculated 289 (280-300); Potassium 3.2 mEq/L (3.5-5.1); Sodium 139 mEq/L (136-145); eGFR For African Americans > 60 (> 60); eGFR For Non-African Americans > 60 (> 60)
[2017-04-21 08:01] LABS: Albumin 2.5 g/dL (3.5-5.7); Albumin/Globulin Ratio 0.8 (1.1-2.2); Bilirubin,Direct 0.3 mg/dL (0.0-0.2); Bilirubin,Indirect 0.4 mg/dL (0.0-1.2); Bilirubin,Total 0.7 mg/dL (0.3-1.0); Total Protein 5.5 g/dL (6.4-8.9)
[2017-04-21] MEDS: Aspirin 81 MG TAB.CHEW PO SCH (08:44)
[2017-04-21] MEDS: *HR* Amiodarone 200 MG TABLET PO SCH (08:44)
[2017-04-21] MEDS: Cefepime HCl 2,000 MG in Water for inj. (sterile) 20 ML 20 ML IVP SCH ×2 (08:44→20:47)
[2017-04-21] MEDS: Loratadine 10 MG TABLET PO SCH (08:44)
[2017-04-21] MEDS: Micafungin 100 MG in 0.9 % Sodium Chloride Mini Bag 100 ML IVPB SCH (08:45)
--- NOTE | 2017-04-21 09:58 | Oncology Inp Progress Note ---
<Jolly Wiseman Jayne - Last Filed: 04/21/17 17:16> Date of Encounter: 04/21/17 Time of Encounter: 09:58 (1) AML (acute myeloid leukemia) Current Visit: Yes Status: Acute Assessment and plan: AML (18% blasts per [facility] path results in aspirate), decitabine q28 days with plan to treat until progression, last cycle 03/21/17-03/25/17. He is scheduled for next cycle beginning 04/25/16, this will be delayed 1 week to allow recovery from current infection/neutropenia, currently working on rescheduling. Admitted with neutropenic fever- Currently treating with vancomycin and cefipime. Fevers improving with Tmax 99.9 within past 24 hours. His blood counts have stabilized and improved with a now normal neutrophil count (1.7) and WBC 3.1. Repeat CT chest shows areas of consolidation and ground-glass opacity to the right lung most significant to the right upper lobe but also with involvement of the right middle and to a lesser extent right lower lobes, along with mild patchy areas of ground-glass opacity to the left lower lobe without dense consolidations noted most compatible with multifocal pneumonia. Worsening radiographic disease likely reflective of inflammatory response following his resolution of neutropenia. Awaiting final cx results, prelim show no growth. Please refer to Dr. Sarabia's attestation below for further details. Qualifiers: Leukemia Active/Remission status: without remission Qualified Code(s): C92.00 - Acute myeloblastic leukemia, not having achieved remission Oncology: Subj Interval history: Clinically he is progressively improving. Continues to report SOB with exertion and cough, feels less wheezy in comparison to yesterday. Strength continues to improve. - Constitutional Vitals: Vital Signs Temp Pulse Resp BP Pulse Ox 04/21/17 07:42 98.2 F 86 16 151/79 92 04/21/17 03:41 98.4 F 87 17 152/70 90 04/20/17 23:03 99.9 F H 71 17 150/72 92 04/20/17 18:50 99 F 89 16 168/89 93 04/20/17 15:51 98.7 F 85 16 147/82 94 04/20/17 11:32 98.3 F 80 20 123/64 92 Intake and Output 04/20/17 04/21/17 04/21/17 23:59 07:59 15:59 Intake Total 1020 / 1020 900 / 900 Output Total 200 / 200 1125 / 1125 Balance 820 / 820 -225 / -225 Intake: IV Fluids 1020 / 1020 500 / 500 KCl 20 mEq in 0.9% Sodium 1000 / 1000 Chloride 20 meq In 1,000 ml @ 100 mls/hr IVC .Q10H [facility] Rx#: [id number] Maxipime 2,000 MG In Water for 20 / 20 inj. (sterile) 20 ML @ 300 mls/ hr IVP Q12H [facility] Rx#:[id number] Vancocin 1,500 MG In Dextrose 5 500 / 500 % 250 ML @ 166.667 mls/hr IVPB Q12H [facility] Rx#:[id number] Oral 400 / 400 Output: Urine 200 / 200 1125 / 1125 Other: Weight 94.71 kg Patient Weight 04/21/17 23:59 Weight 94.71 kg General appearance: cooperative, no acute distress, no febrile - Head Head exam: Present: atraumatic - Respiratory Respiratory exam: Present: decreased breath sounds, CTAB - Cardiovascular Cardiovascular exam: Present: irregular rhythm, +S1, +S2. Absent: tachycardia - GI/Abdominal GI/Abdominal exam: Present: normal bowel sounds, soft. Absent: guarding, tenderness - Extremities Exam Extremities exam: Absent: calf tenderness, pedal edema - Neurological Exam Neurological exam: Present: alert, oriented X3, strengths equal and symetr throughout. Absent: no focal deficits - Psychiatric Psychiatric exam: Present: normal affect, normal mood - Skin Skin exam: Present: pallor, warm Oncology: Obj Data - Labs CBC & Chem 7: 04/21/17 05:45 04/21/17 05:45 - Impressions Impressions Abdomen/Pelvis CT 04/20/17 14:00 IMPRESSION: 1. No acute abdominal or pelvic abnormality. 2. There is nonspecific stranding adjacent to the cecum. No associated wall thickening. 3. Mild anterior bladder wall thickening, nonspecific. 4. Bilateral inguinal hernias contain nonobstructed loops of small bowel. D/ / 04/20/2017 15:40:20 Brenda Venegas MD / [facility] Interpreting Provider: Brenda Venegas MD Chest CT 04/20/17 14:00 IMPRESSION: Areas of consolidation and ground-glass opacity to the right lung most significant to the right upper lobe but also with involvement of the right middle and to a lesser extent right lower lobes. There are also mild patchy areas of ground-glass opacity to the left lower lobe without dense consolidations noted. Findings are felt to be most compatible with multifocal pneumonia. Follow-up to resolution recommended. Mediastinal and right hilar lymphadenopathy is nonspecific but may be reactive in nature. Attention can be paid on follow-up. Moderate right pleural effusion and small left pleural effusion. Atherosclerosis to include coronary artery disease. D/ / 04/20/2017 15:37:08 [facility] / [facility] Interpreting Provider: Antonio Cortez MD - ABG Interpretation ABG results: PT/INR, D-dimer PT 12.0 Seconds (9.4-12.1) 04/16/17 20:05 Consult Discharge Plan - Plan Referrals: Shannan Shah MD [Primary Care Provider] - <Horace Sarabia - Last Filed: 04/21/17 17:42> Date of Encounter: 04/21/17 - Constitutional Vitals: Vital Signs Temp Pulse Resp BP Pulse Ox 04/21/17 15:42 98 F 88 17 163/91 93 04/21/17 10:57 97.7 F 101 16 167/90 92 04/21/17 07:42 98.2 F 86 16 151/79 92 04/21/17 03:41 98.4 F 87 17 152/70 90 04/20/17 23:03 99.9 F H 71 17 150/72 92 04/20/17 18:50 99 F 89 16 168/89 93 Intake and Output 04/21/17 04/21/17 04/22/17 08:59 16:59 00:59 Intake Total 1900 / 1900 Output Total 1125 / 1125 Balance 775 / 775 Intake: IV Fluids 1500 / 1500 KCl 20 mEq in 0.9% Sodium 1000 / 1000 Chloride 20 meq In 1,000 ml @ 100 mls/hr IVC .Q10H [facility] Rx#: [id number] Vancocin 1,500 MG In Dextrose 5 500 / 500 % 250 ML @ 166.667 mls/hr IVPB Q12H [facility] Rx#:[id number] Oral 400 / 400 Output: Urine 1125 / 1125 Other: Weight 94.71 kg Patient Weight 04/22/17 00:59 Weight 94.71 kg Oncology: Obj Data - Labs CBC & Chem 7: 04/21/17 05:45 04/21/17 05:45 Labs: Laboratory Results - last 24 hr 04/21/17 04/21/17 04/21/17 00:40 05:45 05:45 WBC 3.1 L RBC 2.39 L Hgb 8.7 L Hct 26.1 L MCV 109.2 H MCH 36.4 H MCHC 33.3 RDW 15.9 H Plt Count 120 L MPV 10.6 Seg Neutrophils % 54.0 Band Neutrophils % 2.0 Lymphocytes % 28.0 Monocytes % 16.0 Neutrophils # 1.7 Lymphocytes # 0.9 Monocytes # 0.5 Nucleated RBCs/100 WBC 0.6 H Reactive Lymphocytes Present A Platelet Estimate Slight Decrease L Poikilocytosis 1+ A Anisocytosis 1+ A Sodium 139 Potassium 3.2 L Chloride 108 H Carbon Dioxide 25 BUN 12 Creatinine 0.62 L Est GFR ( Amer) > 60 Est GFR (Non-Af Amer) > 60 BUN/Creatinine Ratio 19 Glucose 124 H Calculated Osmolality 289 Calcium 7.9 L Total Bilirubin Direct Bilirubin Indirect Bilirubin AST ALT Alkaline Phosphatase Serum Total Protein Albumin Globulin Albumin/Globulin Ratio Vancomycin Trough 16.1 04/21/17 05:45 WBC RBC Hgb Hct MCV MCH MCHC RDW Plt Count MPV Seg Neutrophils % Band Neutrophils % Lymphocytes % Monocytes % Neutrophils # Lymphocytes # Monocytes # Nucleated RBCs/100 WBC Reactive Lymphocytes Platelet Estimate Poikilocytosis Anisocytosis Sodium Potassium Chloride Carbon Dioxide BUN Creatinine Est GFR ( Amer) Est GFR (Non-Af Amer) BUN/Creatinine Ratio Glucose Calculated Osmolality Calcium Total Bilirubin 0.7 Direct Bilirubin 0.3 H Indirect Bilirubin 0.4 AST 18 ALT 16 Alkaline Phosphatase 52 Serum Total Protein 5.5 L Albumin 2.5 L Globulin 3.0 Albumin/Globulin Ratio 0.8 L Vancomycin Trough - ABG Interpretation ABG results: PT/INR, D-dimer PT 12.0 Seconds (9.4-12.1) 04/16/17 20:05 - Attending Attestation I examined this patient and my medical decision-making was reviewed with the Advanced Practice Nurse. I agree with the documented findings, disposition and treatment plan as described except to the extent set forth below. He is feeling a bit better. More energy. Cough stable with minimal production. Fever curve improving. Still with coarse BS bilaterally. Continue with current care. Hopeful continued deescalation over next few days of antibiotics.
[2017-04-21 10:09] LABS: Lymphocytes # 0.9 K/mcL (0.6-4.6); Monocytes # 0.5 K/mcL (0.0-1.3); Neutrophils # 1.7 K/mcL (1.6-8.9)
[2017-04-21 10:10] LABS: Anisocytosis 1+ (Not Present); Platelet Estimate Slight Decrease (Normal); Poikilocytosis 1+ (Not Present); Reactive Lymphocytes Present (Not Present)
--- NOTE | 2017-04-21 14:08 | Infectious Disease Progress No ---
Date of Encounter: 04/21/17 Time of Encounter: 14:03 - Assessment and Plan (1) Severe sepsis Current Visit: Yes Status: Acute The patient had 3 SIRS criteria plus lactic acidosis on admission. Likely secondary to PNA. Improved. The patient has been afebrile x 48 hours. Tachycardia and tachypnea have resolved. Blood cultures drawn 04/16/17 x 2 sets are NGTD. (2) Neutropenic fever Current Visit: Yes Status: Acute Likely secondary to pneumonia. The patient has been afebrile x 48 hours. ANC improved --> [address] of the chest shows findings consistent with multifocal pneumonia. CT of the abdomen and pelvis did not show any acute findings. Continue Micafungin 100mg IV daily for now. Continue Vancomycin IV. Pharmacy to dose. Goal trough ~15. Continue Cefepime 2 grams IV Q12H. Duration of treatment depends on the clinical picture. Monitor renal function and for drug toxicity and dose-adjust antibiotics. (3) Pneumonia Current Visit: Yes Status: Suspected Causative organism unclear. Location: Multifocal. CT scan of the chest shows areas of consolidation and ground glass opacity to the right lung most significant to the right upper lobe but also with involvement of the right middle and to a lesser extent the right lower lobes. There are also mild patchy areas of ground glass opacity to the left lower lobe without dense consolidations. S. pneumo and Legionella UAT negative. Send sputum for culture --> discussed with nursing. Consult pulmonology. Dr. Daley aware. The patient may benefit from bronchoscopy to evaluate for atypical/fungal/AFB. Continue antibiotics as above. Await pulmonology recommendations. We will continue to follow. Qualifiers: Pneumonia type: due to methicillin-resistant Staphylococcus aureus (MRSA) Laterality: right Lung location: unspecified part of lung Qualified Code(s) : J15.212 - Pneumonia due to Methicillin resistant Staphylococcus aureus (4) Atrial fibrillation Current Visit: Yes Status: Acute Qualifiers: Atrial fibrillation type: permanent Qualified Code(s): I48.2 - Chronic atrial fibrillation (5) CMML (chronic myelomonocytic leukemia) Current Visit: No Status: Acute Follows with [facility]. Hem/Onc consulted and following. Qualifiers: Leukemia Active/Remission status: without remission Qualified Code(s): C93.10 - Chronic myelomonocytic leukemia not having achieved remission - Subjective Interval history: Patient seen and examined. No acute events noted overnight. Patient states that overall he feels a little better today. Denies fevers, chills, or rigors. Reports dyspnea on exertion and a cough productive of small amount of dark yellow sputume. Denies chest pain. Denies nausea, vomiting, or diarrhea. Reports last BM was this morning. Denies abdominal pain, urinary complaints, or appetite changes. Denies oral thrush or new skin lesions. Infect Dis PN-Objective Data - Labs CBC & Chem 7: 04/21/17 05:45 04/21/17 05:45 Labs: Laboratory Results - last 24 hr 04/21/17 04/21/17 04/21/17 00:40 05:45 05:45 WBC 3.1 L RBC 2.39 L Hgb 8.7 L Hct 26.1 L MCV 109.2 H MCH 36.4 H MCHC 33.3 RDW 15.9 H Plt Count 120 L MPV 10.6 Seg Neutrophils % 54.0 Band Neutrophils % 2.0 Lymphocytes % 28.0 Monocytes % 16.0 Neutrophils # 1.7 Lymphocytes # 0.9 Monocytes # 0.5 Nucleated RBCs/100 WBC 0.6 H Reactive Lymphocytes Present A Platelet Estimate Slight Decrease L Poikilocytosis 1+ A Anisocytosis 1+ A Sodium 139 Potassium 3.2 L Chloride 108 H Carbon Dioxide 25 BUN 12 Creatinine 0.62 L Est GFR ( Amer) > 60 Est GFR (Non-Af Amer) > 60 BUN/Creatinine Ratio 19 Glucose 124 H Calculated Osmolality 289 Calcium 7.9 L Total Bilirubin Direct Bilirubin Indirect Bilirubin AST ALT Alkaline Phosphatase Serum Total Protein Albumin Globulin Albumin/Globulin Ratio Vancomycin Trough 16.1 04/21/17 05:45 WBC RBC Hgb Hct MCV MCH MCHC RDW Plt Count MPV Seg Neutrophils % Band Neutrophils % Lymphocytes % Monocytes % Neutrophils # Lymphocytes # Monocytes # Nucleated RBCs/100 WBC Reactive Lymphocytes Platelet Estimate Poikilocytosis Anisocytosis Sodium Potassium Chloride Carbon Dioxide BUN Creatinine Est GFR ( Amer) Est GFR (Non-Af Amer) BUN/Creatinine Ratio Glucose Calculated Osmolality Calcium Total Bilirubin 0.7 Direct Bilirubin 0.3 H Indirect Bilirubin 0.4 AST 18 ALT 16 Alkaline Phosphatase 52 Serum Total Protein 5.5 L Albumin 2.5 L Globulin 3.0 Albumin/Globulin Ratio 0.8 L Vancomycin Trough Cultures: Cultures 04/21/17 10:55 Sputum Culture - Final Sputum 04/20/17 20:57 Legionella Antigen - Final Urine,Clean Catch Serology 04/19/17 Range/Units 15:31 EBV Capsid Ag IgM Ab Negative (Negative) - Impressions Impressions Abdomen/Pelvis CT 04/20/17 14:00 IMPRESSION: 1. No acute abdominal or pelvic abnormality. 2. There is nonspecific stranding adjacent to the cecum. No associated wall thickening. 3. Mild anterior bladder wall thickening, nonspecific. 4. Bilateral inguinal hernias contain nonobstructed loops of small bowel. D/ / 04/20/2017 15:40:20 Brenda Venegas MD / [facility] Interpreting Provider: Brenda Venegas MD Chest CT 04/20/17 14:00 IMPRESSION: Areas of consolidation and ground-glass opacity to the right lung most significant to the right upper lobe but also with involvement of the right middle and to a lesser extent right lower lobes. There are also mild patchy areas of ground-glass opacity to the left lower lobe without dense consolidations noted. Findings are felt to be most compatible with multifocal pneumonia. Follow-up to resolution recommended. Mediastinal and right hilar lymphadenopathy is nonspecific but may be reactive in nature. Attention can be paid on follow-up. Moderate right pleural effusion and small left pleural effusion. Atherosclerosis to include coronary artery disease. D/ / 04/20/2017 15:37:08 Antonio Cortez MD / [facility] Interpreting Provider: Antonio Cortez MD Exam - Constitutional Vitals: Temp Pulse Resp BP Pulse Ox 97.7 F 101 16 167/90 92 04/21/17 10:57 04/21/17 10:57 04/21/17 10:57 04/21/17 10:57 04/21/17 10:57 General appearance: average body habitus, cooperative, no acute distress - Head Head exam: Present: atraumatic, normal inspection, normocephalic - Eye Eye exam: Present: EOMI, normal appearance, PERRL Pupils: Present: normal accommodation - ENT ENT exam: Present: mucous membranes moist - Neck Neck exam: Present: normal inspection - Respiratory Respiratory exam: Present: rhonchi (Throughout). Absent: CTAB, rales, respiratory distress, wheezes - Cardiovascular Cardiovascular exam: Present: RRR, +S1, +S2 - GI/Abdominal GI/Abdominal exam: Present: normal bowel sounds, soft. Absent: distended, tenderness - Extremities Exam Extremities exam: Present: normal inspection. Absent: joint swelling, pedal edema, tenderness - Neurological Exam Neurological exam: Present: alert, oriented X3, no focal deficits - Psychiatric Psychiatric exam: Present: normal affect, normal mood - Skin Skin exam: Present: dry, intact, normal color, warm Consult Discharge Plan - Plan Referrals: Shannan Shah MD [Primary Care Provider] - - Attending Attestation I examined this patient and my medical decision-making was reviewed with the Resident Physician. I agree with the documented findings, disposition and treatment plan as described except to the extent set forth below.
--- NOTE | 2017-04-21 16:42 | Internal Med Progress Note ---
Date of Encounter: 04/21/17 Time of Encounter: 16:39 - Assessment and plan (1) Neutropenic fever Current Visit: Yes Status: Acute Assessment and plan: Last fever was 04/19/17: 101.9. Likely pneumonia based on imaging, Will need to check viral source as well, currently on broad spectrum antibiotics. Will consider treating viral pneumonia if no improving or consult ID. Blood cultures 04/16: No growth to date. On vancomycin, cefepime, Micafungin. ID on board, recommendations appreciated. No signs of sepsis and is hemodynamically stable. Okay to resume Dyazide (2) Pneumonia Current Visit: Yes Status: Suspected Assessment and plan: Treating with cefepime and vancomycin. Blood cultures so far negative. Respiratory panel negative. ID team recommends Pulmonary consult for bronchoscopy if a CT chest today is still concerning for pneumonia. Qualifiers: Pneumonia type: due to methicillin-resistant Staphylococcus aureus (MRSA) Laterality: right Lung location: unspecified part of lung Qualified Code(s) : J15.212 - Pneumonia due to Methicillin resistant Staphylococcus aureus (3) AML (acute myeloid leukemia) Current Visit: Yes Status: Acute Assessment and plan: Has been receiving Dacogen as outpatient. Oncology input appreciated. Continue follow up with oncology after discharge. 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 Rate controlled with atenolol, amiodarone. Qualifiers: Atrial fibrillation type: permanent Qualified Code(s): I48.2 - Chronic atrial fibrillation (5) Elevated troponin Current Visit: Yes Status: Resolved Assessment and plan: Appears to be from demand ischemia. No further cardiac workup planned at this time. 2-D echocardiogram shows EF of 60% with indeterminate diastolic function. - Subjective Interval history: Patient has no complaints, no acute events. - Constitutional Vitals: Temp Pulse Resp BP Pulse Ox 98 F 88 17 163/91 93 04/21/17 15:42 04/21/17 15:42 04/21/17 15:42 04/21/17 15:42 04/21/17 15:42 General appearance: Present: cooperative, A&O X 3, answers questions appropriately Exam: CVS: irreg irregular rhythm, normal rate Lungs; CTAB Ext: 1+ bipedal edema, slightly worse than yesterday. Skin: warm, dry Internal Medicine: Result - Labs CBC & Chem 7: 04/21/17 05:45 04/21/17 05:45 Labs: Short CBC 04/21/17 Range/Units 05:45 WBC 3.1 L (4.3-11.1) K/mcL Hgb 8.7 L (12.9-16.9) g/dL Hct 26.1 L (37.5-50.1) % Plt Count 120 L (140-400) K/mcL Neutrophils # 1.7 (1.6-8.9) K/mcL BMP 04/21/17 05:45 Sodium 139 Potassium 3.2 L Chloride 108 H Carbon Dioxide 25 BUN 12 Creatinine 0.62 L Glucose 124 H Calcium 7.9 L Liver Function 04/21/17 Range/Units 05:45 Total Bilirubin 0.7 (0.3-1.0) mg/dL Direct Bilirubin 0.3 H (0.0-0.2) mg/dL AST 18 (13-39) Units/L ALT 16 (7-52) Units/L Alkaline Phosphatase 52 (34-104) Units/L Albumin 2.5 L (3.5-5.7) g/dL - ABG Interpretation ABG results: PT/INR, D-dimer PT 12.0 Seconds (9.4-12.1) 04/16/17 20:05 Consult Discharge Plan - Plan Referrals: Shannan Shah MD [Primary Care Provider] -
[2017-04-21] MEDS ORDERED: Furosemide 40 MG/4 ML VIAL IVP ONE (16:46)
--- NOTE | 2017-04-21 18:14 | Pulmonology Consult Note ---
Date of Encounter: 04/21/17 Time of Encounter: 17:15 Assessment and Plan (1) Pneumonia Current Visit: Yes Status: Suspected Patient is immunocompromised with significant airspace disease on the images on CT chest and differential diagnosis is broad from a typical infection, to bacterial versus fungal and even virus pneumonia and also other differential diagnosis his hematological malignancies and even side effects of medications. I have explained to patient about bronchoscopy was all the risks, alternatives, benefits of the procedure and he agreed to have it done. Patient has been on broad-spectrum antibiotics. Thank you very much for the consultation was arrange procedure for the patient. Qualifiers: Pneumonia type: due to methicillin-resistant Staphylococcus aureus (MRSA) Laterality: right Lung location: unspecified part of lung Qualified Code(s) : J15.212 - Pneumonia due to Methicillin resistant Staphylococcus aureus (2) CMML (chronic myelomonocytic leukemia) Current Visit: No Status: Acute Qualifiers: Leukemia Active/Remission status: without remission Qualified Code(s): C93.10 - Chronic myelomonocytic leukemia not having achieved remission History of Present Illness Consult date: 04/21/17 Requesting physician: Deonna Perez Reason for consult: pneumonia Chief complaint: Fever and pneumonia History of present illness: This is a very pleasant 72-year-old male with history of CMML who is being hospitalized for pneumonia and pulmonary consulted for an evaluation. Patient has been having productive cough and also chills and he has history of pneumococcal pneumonia recently. Patient denies any hemoptysis and overall patient is a poor historian. He had chest x-ray done which showed evidence of air space disease concerning for pneumonia. Patient denies any other complaint at this time. Denies any spontaneous bleeding. He denies any significant wheezing and no chest pain. Past Med Surg Social Fam HX - Past Medical History Medical history: hypertension, other Psychiatric history: no psych history - Past Surgical History Surgical History: pacemaker/AICD - Social History Smoking Status: Never smoker Smokeless Tobacco Status: No Alcohol use: none Drug use: none - Family History Mother Hx Family Cardiac Disorders: Yes (MYOCARDIAL INFARCTION.) Medications and Allergies Aspirin 81 mg PO DAILY 09/24/15 [History] Lisinopril [Zestril] 5 mg PO DAILY 09/24/15 [History] Oxazepam [Serax] 15 mg PO TID PRN 09/24/15 [History] Triamterene/HCTZ 37.5/25mg [Dyazide] 1 each PO DAILY 09/24/15 [History] Amiodarone HCl [Pacerone] 200 mg PO DAILY 10/25/16 [History] Atenolol [Tenormin] 25 mg PO DAILY 01/27/17 [History] Loratadine [Claritin] 10 mg PO DAILY #30 tablet 03/16/17 [Rx] Cholecalciferol (Vitamin D3) [Vitamin D] 2,000 unit PO DAILY 04/16/17 [History] Potassium Chloride Elixir [Potassium Chloride] 20 meq PO DAILY 04/16/17 [History ] Fluticasone Propionate Nasal [Flonase] 50 mcg NS BID 04/17/17 [History] Mineral Oil/Petrolatum,White [Refresh P.m. Ointment] 1 appl OP HS PRN 04/17/17 [ History] Polyvinyl Alcohol [Artificial Tears] 1 drop OP QID PRN 04/17/17 [History] 3 Allergy/AdvReac Type Severity Reaction Status Date / Time No Known Allergies Allergy Verified 01/21/16 08:25 All Systems: A 10-system review of systems was performed and is negative for pertinent findings except as documented above in the HPI. Physical Examination Vital Signs: Vital Signs, Last 4 Hours Temp Pulse Resp BP Pulse Ox 04/21/17 15:42 98 F 88 17 163/91 93 General appearance: appears uncomfortable Eyes: nonicteric ENT: oropharynx dry Neck: supple Effort: mildly labored Auscultation: left: diminished breath sounds, right: rhonchi Percussion: bilateral: not dull Cardiovascular: irregular rhythm Gastrointestinal: normoactive bowel sounds, non-distended Extremities: no cyanosis normal mental status, non-focal exam mood appropriate Results - Laboratory Findings CBC and BMP: 04/21/17 05:45 04/21/17 05:45 PT/INR, D-dimer PT 12.0 Seconds (9.4-12.1) 04/16/17 20:05 Abnormal lab findings: Abnormal lab results WBC 3.1 K/mcL (4.3-11.1) L 04/21/17 05:45 RBC 2.39 M/mcL (4.19-5.50) L 04/21/17 05:45 Hgb 8.7 g/dL (12.9-16.9) L 04/21/17 05:45 Hct 26.1 % (37.5-50.1) L 04/21/17 05:45 MCV 109.2 fL (83.0-100.0) H 04/21/17 05:45 MCH 36.4 pg (28.0-33.3) H 04/21/17 05:45 RDW 15.9 % (11.5-14.5) H 04/21/17 05:45 Plt Count 120 K/mcL (140-400) L 04/21/17 05:45 Nucleated RBCs/100 WBC 0.6 /100 WBC (0) H 04/21/17 05:45 Reactive Lymphocytes Present (Not Present) A 04/21/17 05:45 Toxic Granulation Present (Not Present) A 04/20/17 04:36 Platelet Estimate Slight Decrease (Normal) L 04/21/17 05:45 Large Platelets Present (Not Present) A 04/20/17 04:36 Polychromasia 1+ (Not Present) A 04/19/17 00:38 Poikilocytosis 1+ (Not Present) A 04/21/17 05:45 Anisocytosis 1+ (Not Present) A 04/21/17 05:45 Macrocytosis Present (Not Present) A 04/20/17 04:36 Potassium 3.2 mEq/L (3.5-5.1) L 04/21/17 05:45 Chloride 108 mEq/L (98-107) H 04/21/17 05:45 Creatinine 0.62 mg/dL (0.70-1.30) L 04/21/17 05:45 Glucose 124 mg/dL (70-105) H 04/21/17 05:45 Calcium 7.9 mg/dL (8.6-10.3) L 04/21/17 05:45 Phosphorus 1.6 mg/dL (2.7-4.5) L 04/16/17 20:05 Magnesium 1.4 mg/dL (1.6-2.6) L 04/19/17 00:38 Direct Bilirubin 0.3 mg/dL (0.0-0.2) H 04/21/17 05:45 Troponin I 0.16 ng/mL (< 0.04) H* 04/18/17 10:17 Serum Total Protein 5.5 g/dL (6.4-8.9) L 04/21/17 05:45 Albumin 2.5 g/dL (3.5-5.7) L 04/21/17 05:45 Albumin/Globulin Ratio 0.8 (1.1-2.2) L 04/21/17 05:45 - Microbiology Findings Microbiology Findings: Microbiology, Last 48 Hours 04/21/17 10:55 Sputum Culture - Final Sputum 04/20/17 20:57 Legionella Antigen - Final Urine,Clean Catch - Diagnostic Findings CT scan - chest: report reviewed, image reviewed - Clinical Findings Intake & Output: Intake & Output 04/21/17 04/21/17 04/21/17 07:59 15:59 23:59 Intake Total 900 / 900 1000 / 1000 Output Total 1125 / 1125 Balance -225 / -225 1000 / 1000 Weight 94.71 kg Consult Discharge Plan - Plan Referrals: Shannan Shah MD [Primary Care Provider] -
[2017-04-22] MEDS: Vancomycin 1,500 MG in D5% in Water 250 ML IVPB SCH ×2 (02:02→14:39)
[2017-04-22 02:12] LABS: Hematocrit 28.9 % (37.5-50.1); Hemoglobin 9.8 g/dL (12.9-16.9); Immature Platelets 5.2 % (1.1-6.1); Mean Corpuscular HGB Conc 33.9 g/dL (31.6-35.5); Mean Corpuscular Hemoglobin 37.1 pg (28.0-33.3); Mean Corpuscular Volume 109.5 fL (83.0-100.0); Mean Platelet Volume 11.1 fL (9.4-12.4); Monocytes # 0.8 K/mcL (0.0-1.3); Nucleated Red Blood Cells 0.5 /100 WBC (0); Platelet Count 122 K/mcL (140-400); Red Blood Count 2.64 M/mcL (4.19-5.50)
[2017-04-22 02:24] LABS: BUN/Creatinine Ratio 16 (6-26); Blood Urea Nitrogen 11 mg/dL (8-23); Carbon Dioxide 26 mEq/L (23-29); Chloride 105 mEq/L (98-107); Glucose 123 mg/dL (70-105); Osmolality,Calculated 283 (280-300); Potassium 3.7 mEq/L (3.5-5.1); Sodium 136 mEq/L (136-145); eGFR For African Americans > 60 (> 60); eGFR For Non-African Americans > 60 (> 60)
[2017-04-22 02:32] LABS: Lymphocytes # 1.4 K/mcL (0.6-4.6); Neutrophils # 2.2 K/mcL (1.6-8.9); Platelet Estimate Normal (Normal)
[2017-04-22] MEDS: *HR* Enoxaparin 30 MG/0.3 ML SYRINGE SQ SCH (04:58)
[2017-04-22 08:15] LABS: HSV 2 Glycoprotein G IgG 0.11 IV (<=0.90)
[2017-04-22] MEDS: Loratadine 10 MG TABLET PO SCH (08:34)
[2017-04-22] MEDS: *HR* Amiodarone 200 MG TABLET PO SCH (08:34)
[2017-04-22] MEDS: Aspirin 81 MG TAB.CHEW PO SCH (08:34)
[2017-04-22] MEDS: Cefepime HCl 2,000 MG in Water for inj. (sterile) 20 ML 20 ML IVP SCH ×2 (08:35→20:47)
[2017-04-22] MEDS: Micafungin 100 MG in 0.9 % Sodium Chloride Mini Bag 100 ML IVPB SCH (08:35)
[2017-04-22] MEDS ORDERED: *HR* EPINEPHrine 1 MG/10 ML SYRINGE INTRATRACH PRN (09:50)
[2017-04-22] MEDS ORDERED: *HR* Midazolam HCl 5 MG/5 ML VIAL IVP ONE ×2 (09:50→10:04)
[2017-04-22] MEDS ORDERED: Albuterol 2.5 MG/3 ML NEBULIZER IH ONE (09:50)
[2017-04-22] MEDS ORDERED: Tetracaine/Benzocaine/Butamben 200MG/SPRAY (100SPY/BOT) MM ONE (09:50)
[2017-04-22] MEDS ORDERED: *HR* FentaNYL (PF) 100 MCG/2 ML VIAL IVP ONE (09:50)
[2017-04-22] MEDS ORDERED: Lidocaine Viscous Oral Soln 15 ML SOLUTION MM ONE (09:50)
--- NOTE | 2017-04-22 09:53 | Pre-Sedation Evaluation ---
Pre-sedation evaluation - Pre-sedation checklist Date of procedure: 04/22/17 Procedure: Bronchoscopy Recent Vitals: Last Vital Signs Temp 98.1 F 04/22/17 07:10 Pulse 91 04/22/17 07:10 Resp 15 04/22/17 07:10 BP 154/74 04/22/17 07:10 Pulse Ox 87 04/22/17 07:10 H&P (including ROS) documented in medical record: Yes Previous reaction to sedatives/anesthetics: No Dietary Status: NPO after Midnight Possible difficult airway: No ASA Classification *see protocol: CLASS III-Severe systemic disease Plan of Care: Pt appropriate candidate for procedure/moderate/conscious sedation , Risks/benefits of procedure/sedation discussed w/ patient/family
[2017-04-22] MEDS ORDERED: Lidocaine Viscous Oral Soln 15 ML SOLUTION ONE (10:04)
[2017-04-22] MEDS ORDERED: *HR* FentaNYL (PF) 100 MCG/2 ML VIAL ONE (10:04)
[2017-04-22] MEDS: 0.9 % Sodium Chloride 500 ML IVC SCH ×2 (10:14→20:48)
[2017-04-22] MEDS ORDERED: Ipratropium/Albuterol Neb 3 ML IH ONE (10:51)
[2017-04-22] MEDS ORDERED: Ipratropium/Albuterol Neb 3 ML ONE (10:52)
[2017-04-22] MEDS: 0.9 % Sodium Chloride 1,000 ML IVC SCH (11:22)
--- NOTE | 2017-04-22 13:22 | Infectious Disease Progress No ---
Date of Encounter: 04/22/17 Time of Encounter: 13:19 - Assessment and Plan (1) Severe sepsis Current Visit: Yes Status: Acute The patient had 3 SIRS criteria plus lactic acidosis on admission. Likely secondary to PNA. Improved. The patient has been afebrile x 72 hours. Tachycardia and tachypnea have resolved. Blood cultures drawn 04/16/17 x 2 sets are negative. (2) Neutropenic fever Current Visit: Yes Status: Acute Likely secondary to pneumonia. The patient has been afebrile x 48 hours. ANC improved --> [address] of the chest shows findings consistent with multifocal pneumonia. CT of the abdomen and pelvis did not show any acute findings. Continue Micafungin 100mg IV daily for now. Can likely discontinue soon if blood cultures remain negative. Continue Vancomycin IV. Pharmacy to dose. Goal trough ~15. Continue Cefepime 2 grams IV Q12H. Duration of treatment depends on the clinical picture. Monitor renal function and for drug toxicity and dose-adjust antibiotics. (3) Pneumonia Current Visit: Yes Status: Suspected Causative organism unclear. Location: Multifocal. CT scan of the chest shows areas of consolidation and ground glass opacity to the right lung most significant to the right upper lobe but also with involvement of the right middle and to a lesser extent the right lower lobes. There are also mild patchy areas of ground glass opacity to the left lower lobe without dense consolidations. S. pneumo and Legionella UAT negative. Send sputum for culture. Interpreted by micro as NURTF. Pulmonology consulted and following. Status post bronch this morning. Bronch report reviewed. Large amount of mucopurulent secretions noted. BAL sent and pending for AFB, fungal, and culture. Continue antibiotics as above. We will continue to follow. Qualifiers: Pneumonia type: due to methicillin-resistant Staphylococcus aureus (MRSA) Laterality: right Lung location: unspecified part of lung Qualified Code(s) : J15.212 - Pneumonia due to Methicillin resistant Staphylococcus aureus (4) Atrial fibrillation Current Visit: Yes Status: Acute Qualifiers: Atrial fibrillation type: permanent Qualified Code(s): I48.2 - Chronic atrial fibrillation (5) CMML (chronic myelomonocytic leukemia) Current Visit: No Status: Acute Follows with [facility]. Hem/Onc consulted and following. Qualifiers: Leukemia Active/Remission status: without remission Qualified Code(s): C93.10 - Chronic myelomonocytic leukemia not having achieved remission - Subjective Interval history: Patient seen and examined. No acute events noted overnight. Status post bronchoscopy this morning. Patient states that overall he feels a little better today. Denies fevers, chills, or rigors. Reports dyspnea on exertion and a cough productive of small amount of dark yellow sputum. Denies chest pain. Denies nausea, vomiting, or diarrhea. Reports last BM was this morning. Denies abdominal pain, urinary complaints, or appetite changes. Denies oral thrush or new skin lesions. Infect Dis PN-Objective Data - Labs CBC & Chem 7: 04/22/17 02:00 04/22/17 02:00 Labs: Laboratory Results - last 24 hr 04/19/17 04/22/17 04/22/17 15:31 02:00 02:00 WBC 4.4 RBC 2.64 L Hgb 9.8 L Hct 28.9 L MCV 109.5 H MCH 37.1 H MCHC 33.9 RDW 16.0 H Plt Count 122 L MPV 11.1 Seg Neutrophils % 48.0 Band Neutrophils % 2.0 Lymphocytes % 32.0 Monocytes % 18.0 Neutrophils # 2.2 Lymphocytes # 1.4 Monocytes # 0.8 Nucleated RBCs/100 WBC 0.5 H Platelet Estimate Normal Immature Plt Fraction 5.2 Sodium 136 Potassium 3.7 Chloride 105 Carbon Dioxide 26 BUN 11 Creatinine 0.67 L Est GFR ( Amer) > 60 Est GFR (Non-Af Amer) > 60 BUN/Creatinine Ratio 16 Glucose 123 H Calculated Osmolality 283 Calcium 8.0 L HSV I Glycoprot-G Ab 29.40 H HSV II Glycoprot-G Ab 0.11 Cultures: Cultures 04/21/17 10:55 Sputum Culture - Final Sputum 04/20/17 20:57 Legionella Antigen - Final Urine,Clean Catch Serology 04/19/17 04/19/17 Range/Units 15:31 15:31 EBV Capsid Ag IgM Ab Negative (Negative) HSV I Glycoprot-G Ab 29.40 H (<=0.90) IV HSV II Glycoprot-G Ab 0.11 (<=0.90) IV Exam - Constitutional Vitals: Temp Pulse Resp BP Pulse Ox 97.4 F L 82 14 145/77 92 04/22/17 11:38 04/22/17 11:38 04/22/17 11:38 04/22/17 11:38 04/22/17 11:38 General appearance: average body habitus, cooperative, no acute distress - Head Head exam: Present: atraumatic, normal inspection, normocephalic - Eye Eye exam: Present: EOMI, normal appearance, PERRL Pupils: Present: normal accommodation - ENT ENT exam: Present: mucous membranes moist - Neck Neck exam: Present: normal inspection - Respiratory Respiratory exam: Present: decreased breath sounds (throughout). Absent: rales , respiratory distress, rhonchi, wheezes - Cardiovascular Cardiovascular exam: Present: RRR, +S1, +S2 - GI/Abdominal GI/Abdominal exam: Present: normal bowel sounds, soft. Absent: distended, tenderness - Extremities Exam Extremities exam: Present: normal inspection. Absent: joint swelling, pedal edema, tenderness - Neurological Exam Neurological exam: Present: alert, oriented X3, no focal deficits - Psychiatric Psychiatric exam: Present: normal affect, normal mood - Skin Skin exam: Present: dry, intact, normal color, warm Consult Discharge Plan - Plan Referrals: Shannan Shah MD [Primary Care Provider] -
[2017-04-22 15:02] LABS: Source of Body Fluid RLL BAL
[2017-04-22 17:20] LABS: Appearance of Body Fluid Cloudy (Clear)
[2017-04-22 17:26] LABS: Volume of Body Fluid 16 mL
--- NOTE | 2017-04-22 17:48 | Internal Med Progress Note ---
Date of Encounter: 04/22/17 Time of Encounter: 17:45 - Assessment and plan (1) Neutropenic fever Current Visit: Yes Status: Acute Assessment and plan: Last fever was 04/19/17: 101.9. Likely pneumonia based on imaging, WBC normalized on 04/22/17. Blood cultures 04/16: No growth to date. On vancomycin, cefepime, Micafungin. ID on board, recommendations appreciated. Bronchoscopy 04/22: cultures pending No signs of sepsis and is hemodynamically stable. (2) Pneumonia Current Visit: Yes Status: Suspected Assessment and plan: Treating with cefepime and vancomycin. Blood cultures so far negative. Respiratory panel negative. Beonchoscopy 04/22: cytology pending On vancomycin, cefepime, Micafungin ID and Pulm following, recommendations appreciated. Qualifiers: Pneumonia type: due to methicillin-resistant Staphylococcus aureus (MRSA) Laterality: right Lung location: unspecified part of lung Qualified Code(s) : J15.212 - Pneumonia due to Methicillin resistant Staphylococcus aureus (3) AML (acute myeloid leukemia) Current Visit: Yes Status: Acute Assessment and plan: Has been receiving Dacogen as outpatient. Oncology input appreciated. Continue follow up with oncology after discharge. 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 Rate controlled with atenolol, amiodarone. Qualifiers: Atrial fibrillation type: permanent Qualified Code(s): I48.2 - Chronic atrial fibrillation (5) Elevated troponin Current Visit: Yes Status: Resolved Assessment and plan: Appears to be from demand ischemia. No further cardiac workup planned at this time. 2-D echocardiogram shows EF of 60% with indeterminate diastolic function. - Subjective Interval history: Patient had bronchoscopy done today. Doing well currently, feeling better, eating and sitting with who is present at bedside. He denies fevers/chills , n/v, diarrhea/constipation. Appetite is good, no fatigue, no dyspnea. - Constitutional Vitals: Temp Pulse Resp BP Pulse Ox 97.4 F L 83 14 116/73 94 04/22/17 11:38 04/22/17 14:21 04/22/17 11:38 04/22/17 14:21 04/22/17 17:02 General appearance: Present: cooperative, A&O X 3, answers questions appropriately Exam: CVS: irreg irregular rhythm, normal rate Lungs; CTAB Ext: trace bipedal edema Skin: warm, dry Internal Medicine: Result - Labs CBC & Chem 7: 04/22/17 02:00 04/22/17 02:00 Labs: Short CBC 04/22/17 Range/Units 02:00 WBC 4.4 (4.3-11.1) K/mcL Hgb 9.8 L (12.9-16.9) g/dL Hct 28.9 L (37.5-50.1) % Plt Count 122 L (140-400) K/mcL Neutrophils # 2.2 (1.6-8.9) K/mcL BMP 04/22/17 02:00 Sodium 136 Potassium 3.7 Chloride 105 Carbon Dioxide 26 BUN 11 Creatinine 0.67 L Glucose 123 H Calcium 8.0 L - ABG Interpretation ABG results: PT/INR, D-dimer PT 12.0 Seconds (9.4-12.1) 04/16/17 20:05 Consult Discharge Plan - Plan Referrals: Shannan Shah MD [Primary Care Provider] -
[2017-04-23] MEDS: Vancomycin 1,500 MG in D5% in Water 250 ML IVPB SCH ×2 (02:58→16:08)
[2017-04-23] MEDS ORDERED: Ipratropium/Albuterol Neb 3 ML IH PRN (03:08)
[2017-04-23] MEDS ORDERED: Albuterol 2.5 MG/3 ML NEBULIZER IH PRN (03:09)
[2017-04-23] MEDS: 0.9 % Sodium Chloride 1,000 ML IVC SCH (05:01)
[2017-04-23] MEDS: *HR* Enoxaparin 30 MG/0.3 ML SYRINGE SQ SCH (05:16)
[2017-04-23 06:41] LABS: BUN/Creatinine Ratio 13 (6-26); Blood Urea Nitrogen 8 mg/dL (8-23); Calcium 8.3 mg/dL (8.6-10.3); Carbon Dioxide 31 mEq/L (23-29); Chloride 96 mEq/L (98-107); Glucose 141 mg/dL (70-105); Osmolality,Calculated 277 (280-300); Potassium 3.2 mEq/L (3.5-5.1); Sodium 133 mEq/L (136-145); eGFR For African Americans > 60 (> 60); eGFR For Non-African Americans > 60 (> 60)
[2017-04-23 07:32] LABS: Hematocrit 28.3 % (37.5-50.1); Hemoglobin 9.4 g/dL (12.9-16.9); Mean Corpuscular HGB Conc 33.2 g/dL (31.6-35.5); Mean Corpuscular Volume 108.4 fL (83.0-100.0); Mean Platelet Volume 11.5 fL (9.4-12.4); Nucleated Red Blood Cells 0.7 /100 WBC (0); Platelet Count 121 K/mcL (140-400); Red Blood Count 2.61 M/mcL (4.19-5.50); Red Cell Distribution Width 15.9 % (11.5-14.5)
[2017-04-23 08:56] LABS: Large Platelets Present (Not Present); Lymphocytes # 1.8 K/mcL (0.6-4.6); Monocytes # 0.4 K/mcL (0.0-1.3); Neutrophils # 2.9 K/mcL (1.6-8.9); Polychromasia 1+ (Not Present)
[2017-04-23 08:57] LABS: Reactive Lymphocytes Present (Not Present); Toxic Granulation Present (Not Present)
[2017-04-23] MEDS: Aspirin 81 MG TAB.CHEW PO SCH (10:29)
[2017-04-23] MEDS: Loratadine 10 MG TABLET PO SCH (10:29)
[2017-04-23] MEDS: *HR* Amiodarone 200 MG TABLET PO SCH (10:29)
[2017-04-23] MEDS: Micafungin 100 MG in 0.9 % Sodium Chloride Mini Bag 100 ML IVPB SCH (10:31)
[2017-04-23] MEDS: Cefepime HCl 2,000 MG in Water for inj. (sterile) 20 ML 20 ML IVP SCH ×2 (10:32→21:26)
[2017-04-23] MEDS: 0.9 % Sodium Chloride w KCl 20 MEQ/1,000 ML MLS IVC SCH (13:29)
--- NOTE | 2017-04-23 16:38 | Internal Med Progress Note ---
Date of Encounter: 04/23/17 Time of Encounter: 16:36 - Assessment and plan (1) Neutropenic fever Current Visit: Yes Status: Acute Assessment and plan: Last fever was 04/19/17: 101.9. Likely pneumonia based on imaging, WBC normalized on 04/22/17. Blood cultures 04/16: No growth to date. On vancomycin, cefepime, Micafungin. ID on board, recommendations appreciated. Bronchoscopy 04/22: cultures pending No signs of sepsis and is hemodynamically stable. (2) Pneumonia Current Visit: Yes Status: Suspected Assessment and plan: Treating with cefepime and vancomycin. Blood cultures so far negative. Respiratory panel negative. Beonchoscopy 04/22: cytology pending On vancomycin, cefepime, Micafungin ID and Pulm following, recommendations appreciated. Qualifiers: Pneumonia type: due to methicillin-resistant Staphylococcus aureus (MRSA) Laterality: right Lung location: unspecified part of lung Qualified Code(s) : J15.212 - Pneumonia due to Methicillin resistant Staphylococcus aureus (3) AML (acute myeloid leukemia) Current Visit: Yes Status: Acute Assessment and plan: Has been receiving Dacogen as outpatient. Oncology input appreciated. Continue follow up with oncology after discharge. 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 Rate controlled with atenolol, amiodarone. Qualifiers: Atrial fibrillation type: permanent Qualified Code(s): I48.2 - Chronic atrial fibrillation (5) Elevated troponin Current Visit: Yes Status: Resolved Assessment and plan: Appears to be from demand ischemia. No further cardiac workup planned at this time. 2-D echocardiogram shows EF of 60% with indeterminate diastolic function. - Subjective Interval history: Doing well currently, He denies fevers/chills, n/v, diarrhea/constipation. Appetite is good, no fatigue, no dyspnea. - Constitutional Vitals: Temp Pulse Resp BP Pulse Ox 97.5 F L 81 18 158/72 92 04/23/17 15:49 04/23/17 15:49 04/23/17 15:49 04/23/17 15:49 04/23/17 15:49 General appearance: Present: cooperative, A&O X 3, answers questions appropriately Exam: CVS: irreg irregular rhythm, normal rate Lungs; CTAB Ext: 1+ bipedal edema, slightly worse than yesterday. Skin: warm, dry Internal Medicine: Result - Labs CBC & Chem 7: 04/23/17 06:19 04/23/17 06:19 Labs: Short CBC 04/23/17 Range/Units 06:19 WBC 5.4 (4.3-11.1) K/mcL Hgb 9.4 L (12.9-16.9) g/dL Hct 28.3 L (37.5-50.1) % Plt Count 121 L (140-400) K/mcL Neutrophils # 2.9 (1.6-8.9) K/mcL BMP 04/23/17 06:19 Sodium 133 L Potassium 3.2 L Chloride 96 L Carbon Dioxide 31 H BUN 8 Creatinine 0.61 L Glucose 141 H Calcium 8.3 L - ABG Interpretation ABG results: PT/INR, D-dimer PT 12.0 Seconds (9.4-12.1) 04/16/17 20:05 - Impressions Impressions Abdomen/Pelvis CT 04/20/17 14:00 IMPRESSION: 1. No acute abdominal or pelvic abnormality. 2. There is nonspecific stranding adjacent to the cecum. No associated wall thickening. 3. Mild anterior bladder wall thickening, nonspecific. 4. Bilateral inguinal hernias contain nonobstructed loops of small bowel. D/ / 04/20/2017 15:40:20 Bren[facility]egas MD / [facility] Interpreting Provider: Brenda Venegas MD Consult Discharge Plan - Plan Referrals: Shannan Shah MD [Primary Care Provider] -
[2017-04-24] MEDS: 0.9 % Sodium Chloride w KCl 20 MEQ/1,000 ML MLS IVC SCH (00:50)
[2017-04-24] MEDS: Vancomycin 1,500 MG in D5% in Water 250 ML IVPB SCH ×2 (00:52→15:57)
[2017-04-24] MEDS: *HR* Enoxaparin 30 MG/0.3 ML SYRINGE SQ SCH (05:42)
[2017-04-24 08:59] LABS: Basophils % 0.5 %; Eosinophils % 0.2 %; Hematocrit 28.5 % (37.5-50.1); Hemoglobin 9.2 g/dL (12.9-16.9); Immature Granulocytes % 1.1 % (0-4); Lymphocytes # 1.1 K/mcL (0.6-4.6); Lymphocytes % 17.3 %; Mean Corpuscular HGB Conc 32.3 g/dL (31.6-35.5); Mean Corpuscular Hemoglobin 35.5 pg (28.0-33.3); Mean Platelet Volume 11.2 fL (9.4-12.4); Monocytes # 0.9 K/mcL (0.0-1.3); Monocytes % 13.4 %; Neutrophils # 4.3 K/mcL (1.6-8.9); Platelet Count 123 K/mcL (140-400); Red Blood Count 2.59 M/mcL (4.19-5.50); Red Cell Distribution Width 15.9 % (11.5-14.5); Segmented Neutrophils % 67.5 %
[2017-04-24 09:11] LABS: BUN/Creatinine Ratio 17 (6-26); Blood Urea Nitrogen 9 mg/dL (8-23); Calcium 8.2 mg/dL (8.6-10.3); Carbon Dioxide 32 mEq/L (23-29); Chloride 101 mEq/L (98-107); Glucose 116 mg/dL (70-105); Osmolality,Calculated 286 (280-300); Potassium 3.3 mEq/L (3.5-5.1); Sodium 138 mEq/L (136-145); eGFR For African Americans > 60 (> 60); eGFR For Non-African Americans > 60 (> 60)
--- NOTE | 2017-04-24 09:40 | Pulmonology Progress Note ---
Date of Encounter: 04/24/17 Time of Encounter: 08:30 Assessment and Plan (1) Pneumonia Current Visit: Yes Status: Suspected She was gram-negative jonathan and this is from bronchoscopy result. Patient is on broad-spectrum antibiotics and infectious disease follow-up. Consider discontinuation of vancomycin. Please call for any questions on follow-up when necessary. Qualifiers: Pneumonia type: due to other aerobic Gram-negative bacteria Laterality: bilateral Lung location: lower lobe of lung Qualified Code(s): J15.6 - Pneumonia due to other Gram-negative bacteria (2) CMML (chronic myelomonocytic leukemia) Current Visit: No Status: Acute Qualifiers: Leukemia Active/Remission status: without remission Qualified Code(s): C93.10 - Chronic myelomonocytic leukemia not having achieved remission Subjective Principal diagnosis: PNA Interval history: Patient denies any complaint and he thinks bronchoscopy helped him to breathe better Objective PUL Vital signs: Last Vital Signs Temp 98.1 F 04/24/17 08:51 Pulse 88 04/24/17 08:51 Resp 16 04/24/17 08:51 BP 130/73 04/24/17 08:51 Pulse Ox 94 04/24/17 08:51 General appearance: no acute distress Eyes: nonicteric ENT: oropharynx moist Neck: supple Effort: normal Auscultation: bilateral: rhonchi Percussion: bilateral: not dull Cardiovascular: regular rate and rhythm Gastrointestinal: normoactive bowel sounds, non-distended Extremities: no cyanosis normal mental status, non-focal exam mood appropriate Results - Laboratory Findings CBC and BMP: 04/24/17 08:22 04/24/17 08:22 PT/INR, D-dimer PT 12.0 Seconds (9.4-12.1) 04/16/17 20:05 Abnormal lab findings: Abnormal lab results RBC 2.59 M/mcL (4.19-5.50) L 04/24/17 08:22 Hgb 9.2 g/dL (12.9-16.9) L 04/24/17 08:22 Hct 28.5 % (37.5-50.1) L 04/24/17 08:22 MCV 110.0 fL (83.0-100.0) H 04/24/17 08:22 MCH 35.5 pg (28.0-33.3) H 04/24/17 08:22 RDW 15.9 % (11.5-14.5) H 04/24/17 08:22 Plt Count 123 K/mcL (140-400) L 04/24/17 08:22 Myelocytes % 4.0 % (0) H 04/23/17 06:19 Nucleated RBCs/100 WBC 0.7 /100 WBC (0) H 04/23/17 06:19 Reactive Lymphocytes Present (Not Present) A 04/23/17 06:19 Toxic Granulation Present (Not Present) A 04/23/17 06:19 Large Platelets Present (Not Present) A 04/23/17 06:19 Polychromasia 1+ (Not Present) A 04/23/17 06:19 Poikilocytosis 1+ (Not Present) A 04/21/17 05:45 Anisocytosis 1+ (Not Present) A 04/21/17 05:45 Macrocytosis Present (Not Present) A 04/20/17 04:36 Potassium 3.3 mEq/L (3.5-5.1) L 04/24/17 08:22 Carbon Dioxide 32 mEq/L (23-29) H 04/24/17 08:22 Creatinine 0.54 mg/dL (0.70-1.30) L 04/24/17 08:22 Glucose 116 mg/dL (70-105) H 04/24/17 08:22 Calcium 8.2 mg/dL (8.6-10.3) L 04/24/17 08:22 Phosphorus 1.6 mg/dL (2.7-4.5) L 04/16/17 20:05 Magnesium 1.4 mg/dL (1.6-2.6) L 04/19/17 00:38 Direct Bilirubin 0.3 mg/dL (0.0-0.2) H 04/21/17 05:45 Troponin I 0.16 ng/mL (< 0.04) H* 04/18/17 10:17 Serum Total Protein 5.5 g/dL (6.4-8.9) L 04/21/17 05:45 Albumin 2.5 g/dL (3.5-5.7) L 04/21/17 05:45 Albumin/Globulin Ratio 0.8 (1.1-2.2) L 04/21/17 05:45 Fluid Appearance Cloudy (Clear) A 04/22/17 Unknown HSV I Glycoprot-G Ab 29.40 IV (<=0.90) H 04/19/17 15:31 - Microbiology Findings Microbiology Findings: Microbiology, Last 48 Hours 04/22/17 Unknown Gram Stain - Final Left Lower Lobe Lung Respiratory Culture - Preliminary Gram Negative Jonathan 04/22/17 Unknown Acid Fast Stain - Final Right Lower Lobe Lung 04/22/17 Unknown Acid Fast Stain - Final Left Lower Lobe Lung 04/22/17 Unknown Respiratory Culture - Preliminary Right Lower Lobe Lung Gram Negative Jonathan 04/22/17 Unknown Gram Stain - Final Right Lower Lobe Lung - Clinical Findings Intake & Output: Intake & Output 04/23/17 04/24/17 04/24/17 23:59 07:59 15:59 Intake Total 1790 / 1790 400 / 400 Output Total 2250 / 2250 1000 / 1000 Balance -460 / -460 -600 / -600 Weight 91.626 kg Consult Discharge Plan - Plan Referrals: Shannan Shah MD [Primary Care Provider] -
[2017-04-24] MEDS: Micafungin 100 MG in 0.9 % Sodium Chloride Mini Bag 100 ML IVPB SCH (09:49)
[2017-04-24] MEDS: Cefepime HCl 2,000 MG in Water for inj. (sterile) 20 ML 20 ML IVP SCH ×2 (09:50→20:08)
[2017-04-24] MEDS: Loratadine 10 MG TABLET PO SCH (09:51)
[2017-04-24] MEDS: Aspirin 81 MG TAB.CHEW PO SCH (09:51)
[2017-04-24] MEDS: *HR* Amiodarone 200 MG TABLET PO SCH (09:51)
--- NOTE | 2017-04-24 23:16 | Internal Med Progress Note ---
Date of Encounter: 04/24/17 Time of Encounter: 13:12 - Assessment and plan (1) Neutropenic fever Current Visit: Yes Status: Acute Assessment and plan: Last fever was 04/19/17: 101.9. Likely pneumonia based on imaging, WBC normalized on 04/22/17. Blood cultures 04/16: No growth to date. On vancomycin, cefepime, Micafungin. Bronchoscopy 04/22: Gram negative rods No signs of sepsis and is hemodynamically stable. ID on board, recommendations appreciated. If IV abx/antifungals need to be continued on discharge, I will arrange with SW and CM (2) Pneumonia Current Visit: Yes Status: Suspected Assessment and plan: Treating with cefepime and vancomycin. Blood cultures so far negative. Respiratory panel negative. Beonchoscopy 04/22: cytology pending, GNR growth result today On vancomycin, cefepime, Micafungin ID and Pulm following, recommendations appreciated. Qualifiers: Pneumonia type: due to other aerobic Gram-negative bacteria Laterality: bilateral Lung location: lower lobe of lung Qualified Code(s): J15.6 - Pneumonia due to other Gram-negative bacteria (3) AML (acute myeloid leukemia) Current Visit: Yes Status: Acute Assessment and plan: Has been receiving Dacogen as outpatient. Oncology input appreciated. Continue follow up with oncology after discharge. 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 Rate controlled with atenolol, amiodarone. Qualifiers: Atrial fibrillation type: permanent Qualified Code(s): I48.2 - Chronic atrial fibrillation (5) Elevated troponin Current Visit: Yes Status: Resolved Assessment and plan: Appears to be from demand ischemia. No further cardiac workup planned at this time. 2-D echocardiogram shows EF of 60% with indeterminate diastolic function. - Subjective Interval history: He denies fevers/chills, n/v, diarrhea/constipation. Appetite is good, no fatigue, no dyspnea. - Constitutional Vitals: Temp Pulse Resp BP Pulse Ox 98.7 F 71 16 134/72 97 04/24/17 23:10 04/24/17 23:10 04/24/17 23:10 04/24/17 23:10 04/24/17 23:10 General appearance: Present: cooperative, A&O X 3, answers questions appropriately Exam: CVS: RRR Lungs: CTAB Ext: no cyanosis, no edema Skin: warm, dry Internal Medicine: Result - Labs CBC & Chem 7: 04/24/17 08:22 04/24/17 08:22 Labs: Short CBC 04/24/17 Range/Units 08:22 WBC 6.4 (4.3-11.1) K/mcL Hgb 9.2 L (12.9-16.9) g/dL Hct 28.5 L (37.5-50.1) % Plt Count 123 L (140-400) K/mcL Neutrophils # 4.3 (1.6-8.9) K/mcL BMP 04/24/17 08:22 Sodium 138 Potassium 3.3 L Chloride 101 Carbon Dioxide 32 H BUN 9 Creatinine 0.54 L Glucose 116 H Calcium 8.2 L - ABG Interpretation ABG results: PT/INR, D-dimer PT 12.0 Seconds (9.4-12.1) 04/16/17 20:05 Consult Discharge Plan - Plan Referrals: Shannan Shah MD [Primary Care Provider] -
[2017-04-25] MEDS: Vancomycin 1,500 MG in D5% in Water 250 ML IVPB SCH ×2 (01:36→13:11)
[2017-04-25 04:48] LABS: Basophils % 0.3 %; Eosinophils % 0.7 %; Hematocrit 28.2 % (37.5-50.1); Hemoglobin 9.3 g/dL (12.9-16.9); Lymphocytes # 1.1 K/mcL (0.6-4.6); Lymphocytes % 18.4 %; Mean Corpuscular Hemoglobin 36.5 pg (28.0-33.3); Mean Corpuscular Volume 110.6 fL (83.0-100.0); Mean Platelet Volume 11.4 fL (9.4-12.4); Monocytes # 0.7 K/mcL (0.0-1.3); Monocytes % 11.5 %; Neutrophils # 4.1 K/mcL (1.6-8.9); Nucleated Red Blood Cells 0.5 /100 WBC (0); Platelet Count 112 K/mcL (140-400); Red Blood Count 2.55 M/mcL (4.19-5.50); Red Cell Distribution Width 15.8 % (11.5-14.5); Segmented Neutrophils % 68.1 %
[2017-04-25 04:59] LABS: Macrocytosis Present (Not Present)
[2017-04-25 05:12] LABS: BUN/Creatinine Ratio 14 (6-26); Blood Urea Nitrogen 8 mg/dL (8-23); Calcium 8.6 mg/dL (8.6-10.3); Carbon Dioxide 35 mEq/L (23-29); Chloride 98 mEq/L (98-107); Glucose 139 mg/dL (70-105); Osmolality,Calculated 285 (280-300); Potassium 3.4 mEq/L (3.5-5.1); Sodium 137 mEq/L (136-145); eGFR For African Americans > 60 (> 60); eGFR For Non-African Americans > 60 (> 60)
[2017-04-25] MEDS: *HR* Enoxaparin 30 MG/0.3 ML SYRINGE SQ SCH (05:45)
[2017-04-25] MEDS ORDERED: Aminoglycoside Consult 1 EACH MC ONE (07:25)
--- NOTE | 2017-04-25 09:27 | Infectious Disease Progress No ---
Date of Encounter: 04/25/17 Time of Encounter: 09:23 - Assessment and Plan (1) Severe sepsis Current Visit: Yes Status: Acute The patient had 3 SIRS criteria plus lactic acidosis on admission. Likely secondary to PNA. Improved. The patient has been afebrile. Tachycardia and tachypnea have resolved. Blood cultures drawn 04/16/17 x 2 sets are negative. (2) Neutropenic fever Current Visit: Yes Status: Acute Likely secondary to pneumonia. Resolved. The patient has been afebrile. ANC improved. CT of the chest shows findings consistent with multifocal pneumonia. CT of the abdomen and pelvis did not show any acute findings. Discontinue Micafungin. Discontinue Vancomycin. Discontinue Cefepime. Additional antibiotic recommendations as below. (3) Pneumonia Current Visit: Yes Status: Acute Causative organism E. coli. The patient denies any issues swallowing or with aspiration or reflux. Location: Multifocal. CT scan of the chest shows areas of consolidation and ground glass opacity to the right lung most significant to the right upper lobe but also with involvement of the right middle and to a lesser extent the right lower lobes. There are also mild patchy areas of ground glass opacity to the left lower lobe without dense consolidations. S. pneumo and Legionella UAT negative. Sputum culture interpreted by micro as NURTF. Pulmonology consulted and following. Status post bronchoscopy Tuesday. Mucopurulent secretions noted. BAL grew foster-sensitive E. coli. Discontinue antibiotics as above. Start Rocephin 2 grams IV daily. Duration of treatment depends on the clinical picture, but likely 14 days total. Will likely be able to switch to PO Augmentin when ready for discharge. Monitor renal function and for drug toxicity and dose-adjust antibiotics. Qualifiers: Pneumonia type: due to other aerobic Gram-negative bacteria Laterality: bilateral Lung location: lower lobe of lung Qualified Code(s): J15.6 - Pneumonia due to other Gram-negative bacteria (4) Atrial fibrillation Current Visit: Yes Status: Acute Qualifiers: Atrial fibrillation type: permanent Qualified Code(s): I48.2 - Chronic atrial fibrillation (5) CMML (chronic myelomonocytic leukemia) Current Visit: No Status: Acute Follows with [facility]. Hem/Onc consulted and following. Qualifiers: Leukemia Active/Remission status: without remission Qualified Code(s): C93.10 - Chronic myelomonocytic leukemia not having achieved remission - Subjective Interval history: Patient seen and examined. Weekend notes reviewed. No acute events noted overnight. Status post bronchoscopy Tuesday. Patient states that overall he feels a better today. Denies fevers, chills, or rigors. Reports dyspnea on exertion and a sparse non-productive cough. Denies chest pain. Denies nausea, vomiting, or diarrhea. Reports last BM was two days ago. Denies abdominal pain, urinary complaints, or appetite changes. Denies oral thrush or new skin lesions. Infect Dis PN-Objective Data - Labs CBC & Chem 7: 04/25/17 03:32 04/25/17 03:32 Labs: Laboratory Results - last 24 hr 04/24/17 04/25/17 04/25/17 13:33 03:32 03:32 WBC 6.0 RBC 2.55 L Hgb 9.3 L Hct 28.2 L MCV 110.6 H MCH 36.5 H MCHC 33.0 RDW 15.8 H Plt Count 112 L MPV 11.4 Immature Gran % 1.0 Seg Neutrophils % 68.1 Lymphocytes % 18.4 Monocytes % 11.5 Eosinophils % 0.7 Basophils % 0.3 Neutrophils # 4.1 Lymphocytes # 1.1 Monocytes # 0.7 Eosinophils # 0.0 Basophils # 0.0 Nucleated RBCs/100 WBC 0.5 H Macrocytosis Present A Sodium 137 Potassium 3.4 L Chloride 98 Carbon Dioxide 35 H BUN 8 Creatinine 0.57 L Est GFR ( Amer) > 60 Est GFR (Non-Af Amer) > 60 BUN/Creatinine Ratio 14 Glucose 139 H Calculated Osmolality 285 Calcium 8.6 Vancomycin Trough 15.4 Cultures: Cultures 04/22/17 Unknown Gram Stain - Final Left Lower Lobe Lung Respiratory Culture - Final Escherichia coli 04/22/17 Unknown Respiratory Culture - Final Right Lower Lobe Lung Escherichia coli 04/22/17 Unknown Acid Fast Stain - Final Right Lower Lobe Lung 04/22/17 Unknown Acid Fast Stain - Final Left Lower Lobe Lung 04/22/17 Unknown Gram Stain - Final Right Lower Lobe Lung 04/21/17 10:55 Sputum Culture - Final Sputum 04/20/17 20:57 Legionella Antigen - Final Urine,Clean Catch Serology 04/22/17 04/19/17 04/19/17 Range/Units Unknown 15:31 15:31 Fluid Source RLL BAL Fluid Volume 16 mL Fluid Appearance Cloudy A (Clear) Fluid RBC TNP Fld Tot Nucleated Cell TNP Fluid Seg Neutrophil % Test Not Performed Fld Band Neutrophil % Test Not Performed Fluid Lymphocytes % Test Not Performed Fluid Monocytes % Test Not Performed Fluid Eosinophils % Test Not Performed Fluid Basophils % Test Not Performed Fluid Other Cells % 100.0 % EBV Capsid Ag IgM Ab Negative (Negative) HSV I Glycoprot-G Ab 29.40 H (<=0.90) IV HSV II Glycoprot-G Ab 0.11 (<=0.90) IV Exam - Constitutional Vitals: Temp Pulse Resp BP Pulse Ox 98.0 F 86 16 133/73 92 04/25/17 08:14 04/25/17 08:14 04/25/17 08:14 04/25/17 08:14 04/25/17 08:14 General appearance: average body habitus, cooperative, no acute distress - Head Head exam: Present: atraumatic, normal inspection, normocephalic - Eye Eye exam: Present: EOMI, normal appearance, PERRL Pupils: Present: normal accommodation - ENT ENT exam: Present: mucous membranes moist - Neck Neck exam: Present: normal inspection - Respiratory Respiratory exam: Present: decreased breath sounds (throughout). Absent: rales , respiratory distress, rhonchi, wheezes - Cardiovascular Cardiovascular exam: Present: RRR, +S1, +S2 - GI/Abdominal GI/Abdominal exam: Present: normal bowel sounds, soft. Absent: distended, tenderness - Extremities Exam Extremities exam: Present: normal inspection. Absent: joint swelling, pedal edema, tenderness - Neurological Exam Neurological exam: Present: alert, oriented X3, no focal deficits - Psychiatric Psychiatric exam: Present: normal affect, normal mood - Skin Skin exam: Present: dry, intact, normal color, warm Consult Discharge Plan - Plan Referrals: Shannan Shah MD [Primary Care Provider] - - Attending Attestation I examined this patient and my medical decision-making was reviewed with the Resident Physician. I agree with the documented findings, disposition and treatment plan as described except to the extent set forth below.
[2017-04-25 09:41] LABS: Mycoplasma pneumoniae IgG 0.19 U/L (<=0.09)
[2017-04-25 09:42] LABS: Cytomegalovirus DNA (PCR) NOT DETECTED
[2017-04-25] MEDS: Cefepime HCl 2,000 MG in Water for inj. (sterile) 20 ML 20 ML IVP SCH (09:54)
[2017-04-25] MEDS: Loratadine 10 MG TABLET PO SCH (09:55)
[2017-04-25] MEDS: Aspirin 81 MG TAB.CHEW PO SCH (09:55)
[2017-04-25] MEDS: *HR* Amiodarone 200 MG TABLET PO SCH (09:55)
[2017-04-25] MEDS: Micafungin 100 MG in 0.9 % Sodium Chloride Mini Bag 100 ML IVPB SCH (10:09)
[2017-04-25] MEDS: cefTRIAXone 2,000 MG in Water for inj. (sterile) 20 ML 20 ML IVP SCH (14:19)
[2017-04-25 14:33] LABS: Procalcitonin 1.27 ng/mL (<=0.10)
--- NOTE | 2017-04-26 02:44 | Internal Med Progress Note ---
Date of Encounter: 04/25/17 Time of Encounter: 15:41 - Assessment and plan (1) Neutropenic fever Current Visit: Yes Status: Acute Assessment and plan: Last fever was 04/19/17: 101.9. Likely pneumonia based on imaging, WBC normalized on 04/22/17. Blood cultures 04/16: No growth to date Bronchoscopy 04/22: Gram negative rods. No signs of sepsis and is hemodynamically stable. ID on board, recommendations appreciated. vancomycin, cefepime, Micafungin discontinued, started on Rocephin On Rocephin, can switch to Augmentin on DC DC tomorrow on Augmentin PO for 2 weeks duration May qualify for home O2 (2) Pneumonia Current Visit: Yes Status: Acute Assessment and plan: Treating with cefepime and vancomycin. Blood cultures so far negative. Respiratory panel negative. Beonchoscopy 04/22: cytology pending, GNR growth result today On vancomycin, cefepime, Micafungin ID and Pulm following, recommendations appreciated. Qualifiers: Pneumonia type: due to other aerobic Gram-negative bacteria Laterality: bilateral Lung location: lower lobe of lung Qualified Code(s): J15.6 - Pneumonia due to other Gram-negative bacteria (3) AML (acute myeloid leukemia) Current Visit: Yes Status: Acute Assessment and plan: Has been receiving Dacogen as outpatient. Oncology input appreciated. Continue follow up with oncology after discharge. 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 Rate controlled with atenolol, amiodarone. Qualifiers: Atrial fibrillation type: permanent Qualified Code(s): I48.2 - Chronic atrial fibrillation (5) Elevated troponin Current Visit: Yes Status: Resolved Assessment and plan: Appears to be from demand ischemia. No further cardiac workup planned at this time. 2-D echocardiogram shows EF of 60% with indeterminate diastolic function. - Subjective Interval history: He denies fevers/chills, n/v, diarrhea/constipation. Appetite is good, no fatigue, no dyspnea. - Constitutional Vitals: Temp Pulse Resp BP Pulse Ox 98 F 84 17 144/74 92 04/25/17 22:59 04/25/17 22:59 04/25/17 22:59 04/25/17 22:59 04/25/17 22:59 General appearance: Present: cooperative, A&O X 3, answers questions appropriately - Head Head exam: Present: atraumatic, normocephalic - Eye Eye exam: Present: PERRL, conjuntiva pink, sclera anicteric Pupils: Present: PERRL - Neck Neck exam general surgery: Present: supple, trachea midline. Absent: lymphadenopathy - Respiratory Respiratory exam: Present: CTAB. Absent: accessory muscle use, rales, rhonchi, wheezes - Cardiovascular Cardiovascular exam: Present: RRR, +S1, +S2. Absent: diastolic murmur, gallop, rubs, systolic murmur - GI/Abdominal GI/Abdominal exam: Present: normal bowel sounds, soft, no peritoneal signs. Absent: distended, tenderness - Extremities Exam Extremities exam: Present: warm, radial pulses palpable and symmetrical. Absent : calf tenderness, cyanotic, pedal edema - Neurological Exam Neurological exam: Present: CN II-XII intact, oriented X3, no focal deficits. Absent: pronater drift, facial droop, speech deficit - Skin Skin exam: Present: dry, intact Internal Medicine: Result - Labs CBC & Chem 7: 04/25/17 03:32 04/25/17 03:32 Labs: Short CBC 04/25/17 Range/Units 03:32 WBC 6.0 (4.3-11.1) K/mcL Hgb 9.3 L (12.9-16.9) g/dL Hct 28.2 L (37.5-50.1) % Plt Count 112 L (140-400) K/mcL Neutrophils # 4.1 (1.6-8.9) K/mcL BMP 04/25/17 03:32 Sodium 137 Potassium 3.4 L Chloride 98 Carbon Dioxide 35 H BUN 8 Creatinine 0.57 L Glucose 139 H Calcium 8.6 - ABG Interpretation ABG results: PT/INR, D-dimer PT 12.0 Seconds (9.4-12.1) 04/16/17 20:05 Consult Discharge Plan - Plan Referrals: Shannan Shah MD [Primary Care Provider] -
[2017-04-26] MEDS: *HR* Enoxaparin 30 MG/0.3 ML SYRINGE SQ SCH (05:29)
[2017-04-26 06:35] LABS: Basophils % 0.6 %; Eosinophils % 0.6 %; Hematocrit 28.8 % (37.5-50.1); Hemoglobin 9.6 g/dL (12.9-16.9); Immature Granulocytes % 0.9 % (0-4); Lymphocytes # 1.1 K/mcL (0.6-4.6); Lymphocytes % 16.2 %; Mean Corpuscular HGB Conc 33.3 g/dL (31.6-35.5); Mean Corpuscular Hemoglobin 36.8 pg (28.0-33.3); Mean Corpuscular Volume 110.3 fL (83.0-100.0); Mean Platelet Volume 11.9 fL (9.4-12.4); Monocytes # 0.7 K/mcL (0.0-1.3); Monocytes % 9.9 %; Neutrophils # 4.9 K/mcL (1.6-8.9); Nucleated Red Blood Cells 0.3 /100 WBC (0); Platelet Count 117 K/mcL (140-400); Red Blood Count 2.61 M/mcL (4.19-5.50); Red Cell Distribution Width 15.6 % (11.5-14.5); Segmented Neutrophils % 71.8 %
[2017-04-26 06:49] LABS: BUN/Creatinine Ratio 19 (6-26); Blood Urea Nitrogen 11 mg/dL (8-23); Calcium 8.7 mg/dL (8.6-10.3); Carbon Dioxide 36 mEq/L (23-29); Chloride 95 mEq/L (98-107); Glucose 129 mg/dL (70-105); Osmolality,Calculated 285 (280-300); Potassium 3.3 mEq/L (3.5-5.1); Sodium 137 mEq/L (136-145); eGFR For African Americans > 60 (> 60); eGFR For Non-African Americans > 60 (> 60)
[2017-04-26 07:23] LABS: Anisocytosis 1+ (Not Present); Macrocytosis Present (Not Present); Microcytosis Present (Not Present); Ovalocytes 1+ (Not Present); Platelet Estimate Decreased (Normal); Poikilocytosis 1+ (Not Present)
--- NOTE | 2017-04-26 07:48 | Event Note ---
Date of Encounter: 04/26/17 Time of Encounter: 07:47 Final Cytology from bronchoscopy negative for malignancy or fungal elements. Defer to ID for mngt of ABx. Pulmonary will sign off please call with any questions.
[2017-04-26] MEDS: cefTRIAXone 2,000 MG in Water for inj. (sterile) 20 ML 20 ML IVP SCH (09:16)
[2017-04-26] MEDS: Aspirin 81 MG TAB.CHEW PO SCH (09:17)
[2017-04-26] MEDS: *HR* Amiodarone 200 MG TABLET PO SCH (09:17)
[2017-04-26] MEDS: Loratadine 10 MG TABLET PO SCH (09:17)
--- NOTE | 2017-04-26 10:36 | Discharge Summary ---
Date of Encounter: 04/26/17 Time of Encounter: 10:32 - Discharge Diagnosis (1) Neutropenic fever Priority: Primary Status: Acute Comments: Severe sepsis with neutropenic fever (due to chemotherapy) secondary to Escherichia coli pneumonia (2) Pleural effusion Priority: Secondary Status: Acute (3) Pneumonia Priority: Primary Status: Acute Qualifiers: Pneumonia type: due to other aerobic Gram-negative bacteria Laterality: bilateral Lung location: lower lobe of lung Qualified Code(s): J15.6 - Pneumonia due to other Gram-negative bacteria (4) Atrial fibrillation Priority: Secondary Status: Acute Qualifiers: Atrial fibrillation type: permanent Qualified Code(s): I48.2 - Chronic atrial fibrillation (5) Elevated troponin Priority: Secondary Status: Resolved Comments: Secondary to demand ischemia (6) Severe sepsis Priority: Primary Status: Acute (7) CMML (chronic myelomonocytic leukemia) Priority: Secondary Status: Acute Qualifiers: Leukemia Active/Remission status: without remission Qualified Code(s): C93.10 - Chronic myelomonocytic leukemia not having achieved remission - Discharge Medications Prescriptions: Amoxicillin/Clavulanate [Augmentin] 875 mg PO BIDWM #8 tablet Home Medications: Aspirin 81 mg PO DAILY 09/24/15 [History] Lisinopril [Zestril] 5 mg PO DAILY 09/24/15 [History] Oxazepam [Serax] 15 mg PO TID PRN 09/24/15 [History] Triamterene/HCTZ 37.5/25mg [Dyazide] 1 each PO DAILY 09/24/15 [History] Amiodarone HCl [Pacerone] 200 mg PO DAILY 10/25/16 [History] Atenolol [Tenormin] 25 mg PO DAILY 01/27/17 [History] Loratadine [Claritin] 10 mg PO DAILY #30 tablet 03/16/17 [Rx] Cholecalciferol (Vitamin D3) [Vitamin D3] 2,000 unit PO DAILY 04/16/17 [History] Potassium Chloride Elixir [Potassium Chloride] 20 meq PO DAILY 04/16/17 [History ] Fluticasone Propionate Nasal [Flonase] 50 mcg NS BID 04/17/17 [History] Mineral Oil/Petrolatum,White [Refresh P.m. Ointment] 1 appl OP HS PRN 04/17/17 [ History] Polyvinyl Alcohol [Artificial Tears] 1 drop OP QID PRN 04/17/17 [History] Amoxicillin/Clavulanate [Augmentin] 875 mg PO BIDWM #8 tablet 04/26/17 [Rx] Allergies/Adverse Reactions: 3 Allergy/AdvReac Type Severity Reaction Status Date / Time No Known Allergies Allergy Verified 01/21/16 08:25 Date of admission: 04/17/17 15:13 Primary care physician: Shannan Rasmussen Consults: 04/20/17 08:55 Consult to Infectious Diseases [CONS] Routine Consulting Provider: Infectious Disease [place] Reason for Consult: Neutropenic feve Call Completed: No 04/20/17 13:52 Consult to Invasive Line Access Team [CONS] Routine Reason for Consult: powerglide insertion Line Type: EPIV 04/21/17 14:18 Consult to Pulmonology [CONS] Routine Consulting Provider: Pulm Crit [facility] Sleep [facility] Reason for Consult: CML and neutropenic, PNA Time Notified: 14:19 Call Completed: Yes - Patient Status Disposition: Home Health Service Condition: Fair Overall status at discharge: patient is progressing back to baseline - Discharge Instructions Follow Up With: Shannan Shah MD [Primary Care Provider] - Additional Instructions: Follow-up with primary care physician within the next 7 days. Follow-up with oncology within the next 2 weeks. Continue 4 more days of Augmentin. Continue oxygen therapy - Diet and Activity Activity: increase activity as tolerated, wear oxygen at all times Diet: low fat, low cholesterol Hospital course: Mr. Lee is a 72 year old male with past medical history significant for hypertension, hyperlipidemia, atrial fibrillation, rheumatoid arthritis, sinusitis and history of pacemaker placement was diagnosed with acute myeloid leukemia following chronic myelomonocytic leukemia in March 2016. Patient has been taken Decitabine every 28 days with a loss treatment on 03/21/17 through 03/25/17. Apparently patient presented to the [place] with respiration symptoms on March 31, 2017 and was told he had pneumococcal pneumonia. [facility]act [facility] not well known but patient saw hematology oncology as an outpatient and was started on a combination of levofloxacin and Augmentin. Prior to that admission patient started complaining of worsening respirations symptoms combined with fevers, rigors, chills and presented to the emergency department for evaluation. CT scan of the chest showed: Areas of consolidation and ground-glass opacity to the right lung most significant to the right upper lobe but also with involvement of the right middle and to a lesser extent right lower lobes. There are also mild patchy areas of ground-glass opacity to the left lower lobe without dense consolidations noted. Findings are felt to be most compatible with multifocal pneumonia. Mediastinal and right hilar lymphadenopathy is nonspecific but may be reactive in nature. Attention can be paid on follow-up. Moderate right pleural effusion and small left pleural effusion. Since admission patient has been febrile with a MAXIMUM TEMPERATURE of 103 Fahrenheit. Patient was also tachycardic, and markedly neutropenic with a WBC of 0.5 and absolute neutrophil count of 200 patient was also thrombocytopenic. Lactic acid initially was 3.3. Patient also had a slight imbalance with a phosphorus of 1.6 and magnesium of 1.2. A UA was performed and it was negative. A viral respiratory infectious panel was performed on 04/17/17 and it did not detect any viruses. Influenza A and B antigen were also performed on 04/16/17 and came back negative. A streptococcal pneumo antigen was done on 04/16/17 and it came back negative. A chest x-ray was done on 04/16/17 and it was read as patchy right perihilar airspace opacities concerning for pneumonia. An echocardiogram was performed and it showed no endocarditis. Blood cultures were performed on 04/16/17 and 2 out of 2 sets were negative. Patient was initially started on vancomycin, cefepime and levofloxacin. Then he was started on vancomycin on vancomycin and micafungin day 2. ID was consulted. Patient underwent a bronchoscopy the culture grew pansensitive Escherichia coli , cytology was negative for malignancy or fungal elements. He was switched to Rocephin. The patient's neutrophil count has normalized and is stable to be discharged. He will require oxygen at home. - Time Spent with Patient Total time spent providing and/or coordinating discharge services: Greater than 30 minutes (40 min) - Constitutional Vitals: Temp Pulse Resp BP Pulse Ox 97.8 F 82 16 134/72 93 04/26/17 07:51 04/26/17 07:51 04/26/17 07:51 04/26/17 07:51 04/26/17 09:26 General appearance: Present: cooperative, A&O X 3, answers questions appropriately - Head Head exam: Present: atraumatic, normocephalic - Eye Eye exam: Present: PERRL, conjuntiva pink, sclera anicteric Pupils: Present: PERRL - Neck Neck exam general surgery: Present: supple, trachea midline. Absent: lymphadenopathy - Respiratory Respiratory exam: Present: decreased breath sounds (Decreased breath sounds on the right base), CTAB. Absent: accessory muscle use, rales, rhonchi, wheezes - Cardiovascular Cardiovascular exam: Present: RRR, +S1, +S2. Absent: diastolic murmur, gallop, rubs, systolic murmur - GI/Abdominal GI/Abdominal exam: Present: normal bowel sounds, soft, no peritoneal signs. Absent: distended, tenderness - Extremities Exam Extremities exam: Present: pedal edema (+1 pitting edema both lower extremities) , warm, radial pulses palpable and symmetrical. Absent: calf tenderness, cyanotic - Neurological Exam Neurological exam: Present: CN II-XII intact, oriented X3, no focal deficits. Absent: pronater drift, facial droop, speech deficit - Skin Skin exam: Present: dry, intact
--- NOTE | 2017-04-26 10:50 | Physician Discharge Referral ---
Home Health/Hosp Referral Info Transfer to: Home Health Provider in Charge Post Discharge: PCP - Diagnosis (1) Neutropenic fever Status: Acute (2) Pleural effusion Status: Acute (3) Pneumonia Status: Acute (4) Atrial fibrillation Status: Acute (5) Elevated troponin Status: Resolved (6) Severe sepsis Status: Acute (7) CMML (chronic myelomonocytic leukemia) Status: Acute - Respiratory Orders Oxygen / L per min (2 L) Smoking Cessation: Smoking cessation has been advised. For more information, call the [place] Quit Line at 6-814-YGYF-NOW. - Diet/Nutrition Diet/Nutrition Orders: Regular - Services Needed Following services are medically necessary services: Home Health Aide, Physical Therapy, Occupational Therapy Home Care Orders: Follow-up with primary care physician within the next 7 days. Follow-up with oncology within the next 2 weeks. Continue 4 more days of Augmentin. Continue oxygen therapy - Transfer Medications Prescriptions: Amoxicillin/Clavulanate [Augmentin] 875 mg PO BIDWM #8 tablet Home Medications: Aspirin 81 mg PO DAILY 09/24/15 [History] Lisinopril [Zestril] 5 mg PO DAILY 09/24/15 [History] Oxazepam [Serax] 15 mg PO TID PRN 09/24/15 [History] Triamterene/HCTZ 37.5/25mg [Dyazide] 1 each PO DAILY 09/24/15 [History] Amiodarone HCl [Pacerone] 200 mg PO DAILY 10/25/16 [History] Atenolol [Tenormin] 25 mg PO DAILY 01/27/17 [History] Loratadine [Claritin] 10 mg PO DAILY #30 tablet 03/16/17 [Rx] Cholecalciferol (Vitamin D3) [Vitamin D3] 2,000 unit PO DAILY 04/16/17 [History] Potassium Chloride Elixir [Potassium Chloride] 20 meq PO DAILY 04/16/17 [History ] Fluticasone Propionate Nasal [Flonase] 50 mcg NS BID 04/17/17 [History] Mineral Oil/Petrolatum,White [Refresh P.m. Ointment] 1 appl OP HS PRN 04/17/17 [ History] Polyvinyl Alcohol [Artificial Tears] 1 drop OP QID PRN 04/17/17 [History] Amoxicillin/Clavulanate [Augmentin] 875 mg PO BIDWM #8 tablet 04/26/17 [Rx] Allergies/Adverse Reactions: 3 Allergy/AdvReac Type Severity Reaction Status Date / Time No Known Allergies Allergy Verified 01/21/16 08:25 Certification: Further, I certify that my clinical findings support that this patient is homebound (i.e. absences from home require considerable and taxing effort and are for medical reasons or mosque services or infrequently or short duration when for other reasons) because: Homebound Reason: Patient requires assistance of a person or device to safely leave home Attestation: My signature below is to certify that this patient is under my care and that I, or nurse practitioner, or a physician's assistant football coach working with me, has a face-to -face encounter with this patient.
--- NOTE | 2017-04-26 11:22 | Infectious Disease Progress No ---
Date of Encounter: 04/26/17 Time of Encounter: 11:19 - Assessment and Plan (1) Severe sepsis Current Visit: Yes Status: Resolved The patient had 3 SIRS criteria plus lactic acidosis on admission. Likely secondary to PNA. Improved. The patient has been afebrile. Tachycardia and tachypnea have resolved. Blood cultures drawn 04/16/17 x 2 sets are negative. (2) Neutropenic fever Current Visit: Yes Status: Resolved Likely secondary to pneumonia. Resolved. The patient has been afebrile. ANC improved. CT of the chest shows findings consistent with multifocal pneumonia. CT of the abdomen and pelvis did not show any acute findings. (3) Pneumonia Current Visit: Yes Status: Acute Causative organism E. coli. The patient denies any issues swallowing or with aspiration or reflux. Location: Multifocal. CT scan of the chest shows areas of consolidation and ground glass opacity to the right lung most significant to the right upper lobe but also with involvement of the right middle and to a lesser extent the right lower lobes. There are also mild patchy areas of ground glass opacity to the left lower lobe without dense consolidations. S. pneumo and Legionella UAT negative. Sputum culture interpreted by micro as NURTF. Pulmonology consulted and following. Status post bronchoscopy Tuesday. Mucopurulent secretions noted. BAL grew foster-sensitive E. coli. Discontinue antibiotics as above. Continue Rocephin 2 grams IV daily. Duration of treatment depends on the clinical picture, but likely 14 days total from the day of the bronch. Will likely be able to switch to PO Augmentin when ready for discharge. Treat through 05/06/17. Monitor renal function and for drug toxicity and dose-adjust antibiotics. Qualifiers: Pneumonia type: due to other aerobic Gram-negative bacteria Laterality: bilateral Lung location: lower lobe of lung Qualified Code(s): J15.6 - Pneumonia due to other Gram-negative bacteria (4) Atrial fibrillation Current Visit: Yes Status: Acute Qualifiers: Atrial fibrillation type: permanent Qualified Code(s): I48.2 - Chronic atrial fibrillation (5) CMML (chronic myelomonocytic leukemia) Current Visit: No Status: Acute Follows with [facility]. Hem/Onc consulted and following. Qualifiers: Leukemia Active/Remission status: without remission Qualified Code(s): C93.10 - Chronic myelomonocytic leukemia not having achieved remission - Subjective Interval history: Patient seen and examined. No acute events noted overnight. Status post bronchoscopy Tuesday. Patient states that overall he feels better today. Denies fevers, chills, or rigors. Reports dyspnea on exertion and a sparse non- productive cough. Denies chest pain. Denies nausea, vomiting, or diarrhea. Reports last BM was yesterday. Denies abdominal pain, urinary complaints, or appetite changes. Denies oral thrush or new skin lesions. Infect Dis PN-Objective Data - Labs CBC & Chem 7: 04/26/17 05:37 04/26/17 05:37 Labs: Laboratory Results - last 24 hr 04/19/17 04/19/17 04/26/17 15:31 18:13 05:37 WBC 6.8 RBC 2.61 L Hgb 9.6 L Hct 28.8 L MCV 110.3 H MCH 36.8 H MCHC 33.3 RDW 15.6 H Plt Count 117 L MPV 11.9 Immature Gran % 0.9 Seg Neutrophils % 71.8 Lymphocytes % 16.2 Monocytes % 9.9 Eosinophils % 0.6 Basophils % 0.6 Neutrophils # 4.9 Lymphocytes # 1.1 Monocytes # 0.7 Eosinophils # 0.0 Basophils # 0.0 Nucleated RBCs/100 WBC 0.3 H Platelet Estimate Decreased L Poikilocytosis 1+ A Anisocytosis 1+ A Microcytosis Present A Macrocytosis Present A Ovalocytes 1+ A Sodium Potassium Chloride Carbon Dioxide BUN Creatinine Est GFR ( Amer) Est GFR (Non-Af Amer) BUN/Creatinine Ratio Glucose Calculated Osmolality Calcium Procalcitonin 1.27 H Varicella-Zoster Source SERUM VZV DNA (PCR) NOT DETECTED 04/26/17 05:37 WBC RBC Hgb Hct MCV MCH MCHC RDW Plt Count MPV Immature Gran % Seg Neutrophils % Lymphocytes % Monocytes % Eosinophils % Basophils % Neutrophils # Lymphocytes # Monocytes # Eosinophils # Basophils # Nucleated RBCs/100 WBC Platelet Estimate Poikilocytosis Anisocytosis Microcytosis Macrocytosis Ovalocytes Sodium 137 Potassium 3.3 L Chloride 95 L Carbon Dioxide 36 H BUN 11 Creatinine 0.58 L Est GFR ( Amer) > 60 Est GFR (Non-Af Amer) > 60 BUN/Creatinine Ratio 19 Glucose 129 H Calculated Osmolality 285 Calcium 8.7 Procalcitonin Varicella-Zoster Source VZV DNA (PCR) Cultures: Cultures 04/22/17 Unknown Gram Stain - Final Left Lower Lobe Lung Respiratory Culture - Final Escherichia coli 04/22/17 Unknown Respiratory Culture - Final Right Lower Lobe Lung Escherichia coli 04/22/17 Unknown Acid Fast Stain - Final Right Lower Lobe Lung 04/22/17 Unknown Acid Fast Stain - Final Left Lower Lobe Lung 04/22/17 Unknown Gram Stain - Final Right Lower Lobe Lung 04/21/17 10:55 Sputum Culture - Final Sputum 04/20/17 20:57 Legionella Antigen - Final Urine,Clean Catch Serology 04/22/17 04/19/17 04/19/17 Range/Units Unknown 18:13 15:31 Fluid Source RLL BAL Fluid Volume 16 mL Fluid Appearance Cloudy A (Clear) Fluid RBC TNP Fld Tot Nucleated Cell TNP Fluid Seg Neutrophil % Test Not Performed Fld Band Neutrophil % Test Not Performed Fluid Lymphocytes % Test Not Performed Fluid Monocytes % Test Not Performed Fluid Eosinophils % Test Not Performed Fluid Basophils % Test Not Performed Fluid Other Cells % 100.0 % CMV Specimen Source CMV DNA Qual PCR EBV Capsid Ag IgM Ab (Negative) HSV I Glycoprot-G Ab 29.40 H (<=0.90) IV HSV II Glycoprot-G Ab 0.11 (<=0.90) IV Mycoplasma pneumon IgG 0.19 H (<=0.09) U/L Mycoplasma pneumon IgM 0.31 (<=0.76) U/L Varicella-Zoster Source VZV DNA (PCR) 04/19/17 04/19/17 Range/Units 15:31 15:31 Fluid Source Fluid Volume mL Fluid Appearance (Clear) Fluid RBC Fld Tot Nucleated Cell Fluid Seg Neutrophil % Fld Band Neutrophil % Fluid Lymphocytes % Fluid Monocytes % Fluid Eosinophils % Fluid Basophils % Fluid Other Cells % % CMV Specimen Source PLASMA CMV DNA Qual PCR NOT DETECTED EBV Capsid Ag IgM Ab Negative (Negative) HSV I Glycoprot-G Ab (<=0.90) IV HSV II Glycoprot-G Ab (<=0.90) IV Mycoplasma pneumon IgG (<=0.09) U/L Mycoplasma pneumon IgM (<=0.76) U/L Varicella-Zoster Source SERUM VZV DNA (PCR) NOT DETECTED Exam - Constitutional Vitals: Temp Pulse Resp BP Pulse Ox 97.8 F 82 16 134/72 93 04/26/17 07:51 04/26/17 07:51 04/26/17 07:51 04/26/17 07:51 04/26/17 09:26 General appearance: average body habitus, cooperative, no acute distress - Head Head exam: Present: atraumatic, normal inspection, normocephalic - Eye Eye exam: Present: EOMI, normal appearance, PERRL Pupils: Present: normal accommodation - ENT ENT exam: Present: mucous membranes moist - Neck Neck exam: Present: normal inspection - Respiratory Respiratory exam: Present: CTAB. Absent: rales, respiratory distress, rhonchi, wheezes - Cardiovascular Cardiovascular exam: Present: RRR, +S1, +S2 - GI/Abdominal GI/Abdominal exam: Present: normal bowel sounds, soft. Absent: distended, tenderness - Extremities Exam Extremities exam: Present: normal inspection. Absent: joint swelling, pedal edema, tenderness - Neurological Exam Neurological exam: Present: alert, oriented X3, no focal deficits - Psychiatric Psychiatric exam: Present: normal affect, normal mood - Skin Skin exam: Present: dry, intact, normal color, warm Consult Discharge Plan - Plan Additional Instructions: Follow-up with primary care physician within the next 7 days. Follow-up with oncology within the next 2 weeks. Continue 4 more days of Augmentin. Continue oxygen therapy Referrals: Shannan Shah MD [Primary Care Provider] - 05/02/17 1:20 pm [facility] [Non-Partnered Physician] - 04/29/17 12:30 pm Prescriptions: Amoxicillin/Clavulanate [Augmentin] 875 mg PO BIDWM #8 tablet - Attending Attestation I examined this patient and my medical decision-making was reviewed with the Resident Physician. I agree with the documented findings, disposition and treatment plan as described except to the extent set forth below.
[2017-04-26 12:23] VITALS: BP 172/81
== END 2017-04-26 16:10 | disposition home health service (06) | DRG 853 ==
LOC: 3BNU 19:35 → EMEROO 19:35 → SUATTDRO 22:49 → 3BNU 23:04
PROVIDERS: ADMIT Internal Medicine Hematology & Oncology; ATTEND Internal Medicine